=== PATIENT | male | born 1930 | race Caucasian/White ===

== ENCOUNTER 2018-03-30 09:39 | Inpatient (IN) | payer MEDICARE ==
[2018-03-30 10:03] LABS: Urine Bilirubin Negative (NEGATIVE); Urine Blood Negative /ul (NEGATIVE); Urine Ketone Negative (NEGATIVE); Urine Nitrite Negative (NEGATIVE); Urine Protein Negative (NEGATIVE); Urine Specific Gravity 1.025 SP.GR. (1.005-1.030); Urine Urobilinogen Normal (NORMAL); Urine pH 5.5 pH (5.0-7.0)
--- NOTE | 2018-03-30 10:06 | ERNOTE ---
Medical Problem HPI - Narrative Date of Service: 03/30/18 - General Chief Complaint: General Assessment Time Seen by Provider: 03/30/18 10:04 Source: patient Exam Limitations: no limitations - Immun/Allergies/Home Medications Immunizations: IMMUNIZATION HX Immunizations Up to Date Yes History of Influenza Vaccine No Hx Pneumococcal Vaccination Yes Allergies/Adverse Reactions: Allergies Penicillins Allergy (Severe, Verified 03/30/18 09:50) Anaphylaxis Hives Home Medications: HOME MEDICATIONS Aspirin 325 mg PO DAILY 11/26/14 [Last Taken Unknown] Cholecalciferol (Vitamin D3) [Vitamin D-3] 2,000 units PO DAILY 11/26/14 [Last Taken Unknown] Cilostazol [Pletal] 100 mg PO BID 11/26/14 [Last Taken Unknown] Insulin Aspart [Novolog] 10 units SC QAM 11/26/14 [Last Taken Unknown] Insulin Aspart [Novolog] 35 units SC ACX1 11/26/14 [Last Taken Unknown] Insulin Glargine,Hum.rec.anlog [Lantus] 60 units SC HS 11/26/14 [Last Taken Unknown] Rosuvastatin Calcium [Crestor] 20 mg PO DAILY 11/26/14 [Last Taken Unknown] Tamsulosin HCl [Flomax] 0.8 mg PO DAILY 11/26/14 [Last Taken Unknown] Zolpidem Tartrate 10 mg PO DAILY 11/26/14 [Last Taken Unknown] Clopidogrel Bisulfate [Plavix] 75 mg PO DAILY 03/30/18 [Last Taken Unknown] Furosemide 20 mg PO DAILY 03/30/18 [Last Taken Unknown] Metoprolol Rivas/Hydrochlorothiaz [Metoprolol ER-Hctz 25-12.5 mg] 1 each PO DAILY 03/30/18 [Last Taken Unknown] - Pain Score Pain Score #1 Pain Score: 6 - History of Present History Narrative: The patient is a 88 year old male who presents for difficulty with bowel movement and urination which has been present for 1 week. There are associated symptoms of scrotal swelling and chills. The patient reports generalized body aches and scrotal pain, 6/10. There are no alleviating factors. There are aggravating factors of activity and palpation. Previous treatments have included: none. The past medical history includes: diabetes, heart valve replacement and hypertension. The social history is negative. The patient has had no ill contacts. Patient states symptoms began with frequent ep isodes of diarrhea on which persisted for 3 days. Patient states he has now been unable to have BM with increased rectal pressure for 4 days. Patient states along the same time or recently following diarrheal stools he began to notice scrotal redness with pain. Patient typically uses cane for ambulation and lives at home with spouse. Patient having increased difficulty with ambulation and transfers due to weakness and unsteady gait. Timing: getting worse Review of Systems - Review of Systems Constitutional: Present: chills, fatigue. Absent: fever EYE: Present: no symptoms reported ENT: Present: nasal drainage. Absent: ear pain, sore throat Respiratory: Absent: shortness of breath, cough Cardiology: Absent: chest pain Gastrointestinal/Abdominal: Present: diarrhea, constipation, abdominal pain. Absent: nausea, vomiting, eating less, drinking less Genitourinary: Present: dysuria. Absent: frequency Musculoskeletal: Present: back pain Skin: Present: no symptoms reported. Absent: rash Neurological: Present: no symptoms reported Endocrine: Present: no symptoms reported Hematologic/Lymphatic: Present: no symptoms reported Psych: Present: no symptoms reported All Other Systems: All systems neg except as marked Medical History (Last Updated 03/30/18 @ 11:59 by Arlin Rodriguez RN) Bleeding hemorrhoid CHF (congestive heart failure) Diabetes High cholesterol Surgical History: Surgical History (Last Updated 03/30/18 @ 11:59 by Arlin Rodriguez RN) History of heart valve replacement Previous back surgery Total knee replacement status Social History: Preferred Language Estonian Do you have any taoism or No cultural preference? Smoking Status Current every day smoker Have you smoked in the past 12 Yes months Do you dip or chew tobacco No Abuse History No History of abuse Psych History No pertinent hx Alcohol Use none Drug Use none No Social History Section defined Physical Exam - Physical Exam General Appearance: Present: wd/wn, alert, mild distress, anxious Head Exam: Present: normal inspection Eye Exam: Normal inspection: bilateral Ears, Nose, Throat: Present: normal ENT inspection, normal pharynx Neck: Present: normal inspection Respiratory: Present: no respiratory distress, lungs clear, decreased breath sounds Cardiovascular/Chest: Present: regular rate, rhythm, no murmur Gastrointestinal/Abdominal: Present: normal bowel sounds, soft, no organomegaly, tenderness - LLQ, suprapubic, distended - abdominal obesity, hernia - umbilical without tenderness and reduces easily Male Genitals Exam: Present: erythema, scrotum tenderness (R), scrotum tenderness (L). Absent: inguinal tenderness, urethral discharge Extremity Exam: Present: other - left lower extremity erythema with warmth to mid calf, left plantar ulceration over 1st MP Neurological Exam: Present: alert, oriented, normal mood/affect Skin Exam: Present: normal color, warm/dry ED Progress - Date and Time Seen: Date and Time: Patient needing 2 assist with bed to wheelchair transfers. 03/30/18 11:57 Spoke with and patient will be admitted for scrotal and LLE cellulitis, diabetic foot ulcer, and constipation. Spoke with regarding inpatient consult. - Results and Orders Patient's Lab Results:: I have reviewed the patient's lab results. - Vital Signs Patient's Vital Signs:: I have reviewed the patient's vital signs. Vital Signs: Vital Signs 03/30/18 09:46 Temperature 36.6 C Pulse Rate 90 Respiratory Rate 15 Blood Pressure 137/47 - X-Ray X-Ray #1 X-Ray: foot Interpretation: Reviewed by me X-ray Comments: X-RAY REPORT [id number] RAD/Foot 3 Views LT *~ Exam Date: 03/30/2018 10:40 Ordering Physician: Ana Rosa Barrios History: Ulceration. Erythema to left lower extremity. Sore and ulceration on the first digit first metatarsal area. Technique: 3 views of the left foot obtained. Comparison: None. Findings: There is a 3.5 mm metallic foreign body within the soft tissues plantar to the heel. There is spurring of the calcaneus. There is some soft tissue swelling about the first metatarsophalangeal joint. On the lateral view there are radiopaque foreign bodies superficially located. No bony erosions identified. No fractures identified. There are mild arthritic changes. IMPRESSION: MILD ARTHRITIC CHANGES WITH NO ACUTE OSSEOUS PATHOLOGY IDENTIFIED. RADIOPAQUE FOREIGN BODIES. Electronically signed by Urban Rhodes M.D.. X-Ray #2 X-Ray: abdomen Interpretation: Reviewed by me X-ray Comments: X-RAY REPORT [id number] RAD/Abdomen Flat W/ Upright *~ Exam Date: 03/30/2018 10:14 Ordering Physician: Ana Rosa Denis History: Abdominal pain. Technique: Supine and upright views of the abdomen obtained. A total of 5 images utilized. Comparison: None. Findings: There is mild retained stool. There are no air-filled dilated loops of bowel suggest obstruction. There are postoperative changes lumbar spine. There are degenerative changes lumbar spine and both hips. There is consolidation in the left lung base incompletely evaluated. There appears to be a valvular stent. IMPRESSION: MILD RETAINED STOOL. LEFT BASILAR CONSOLIDATION INCOMPLETELY EVALUATED ON THIS EXAM. FOLLOW-UP WITH CHEST PA AND LATERAL CLINICALLY INDICATED. Electronically signed by Urban Rhodes M.D.. - Progress/Reassessment Chief Complaint: General Assessment Departure Clinical Impression: Cellulitis, scrotum Cellulitis Qualifiers: Site of cellulitis: extremity Site of cellulitis of extremity: lower extremity Laterality: left Qualified Code(s): L03.116 - Cellulitis of left lower limb Diabetic foot ulcer Qualifiers: Diabetic foot ulcer location: toe Diabetes mellitus type: type 2 Laterality: left Non-pressure ulcer stage: unspecified non-pressure ulcer stage Qualified Code(s): E11.621 - Type 2 diabetes mellitus with foot ulcer - Departure Disposition: Still a patient Condition: Stable
[2018-03-30 10:10] LABS: Urine Appearance Clear (CLEAR); Urine Bacteria TRACE; Urine Color Yellow; Urine RBC TRACE /hpf (0-5); Urine WBC 0-5 /hpf (0-5)
[2018-03-30 10:35] LABS: Hematocrit 40.1 % (42.0-52.0); Hemoglobin 13.6 gm/dL (13.5-18.0); Mean Cell Volume 91.6 fl (78-100); Mean Corpuscular Hemoglobin 31.1 pg (27-31); Mean Corpuscular Hgb Conc 33.9 g/dl (32-36); Mean Platelet Volume 9.1 fl (8-11.3); Neutrophil # 14.8 K/mm3 (1.3-6.0); Neutrophil % 82.1 % (42-75.0); Platelet Count 212 K/mm3 (150-450); Red Blood Count 4.38 M/mm3 (4.7-6.0); Red Cell Distribution Width 13.2 % (11.5-14.0); White Blood Count 18.1 K/mm3 (4.0-10.5)
[2018-03-30 10:46] LABS: ALT 23 U/L (19-67); AST 18 U/L (0-48); Albumin * 3.7 gm/dl (3.4-5.0); Alkaline Phosphatase * 95 U/L (50-170); Amylase * 23 U/L (25-115); Anion Gap 14.6 mmol/L (6.8-13.8); BUN/Creatinine Ratio 16.2 (9.0-21.6); Bilirubin, Total 0.8 mg/dL (0.0-1.1); Blood Urea Nitrogen 37 mg/dL (6-23); Calcium * 9.1 mg/dL (7.9-10.9); Carbon Dioxide 26.3 mmol/L (24-32.6); Chloride 94 mmol/L (97-106); Glucose * 267 mg/dL (70-110); Lipase 75 U/L (73-393); Potassium 3.9 mmol/L (3.4-4.6); Sodium 131 mmol/L (132-142); Total Protein 7.7 gm/dL (6.2-8.2)
[2018-03-30] MEDS ORDERED: NORMAL SALINE 500 ML IV ONE (11:33)
[2018-03-30] MEDS ORDERED: VANCOMYCIN HCL 1 GM in DEXTROSE 5 % IN WATER 250 ML IV ONE ×2 (11:55)
[2018-03-30] MEDS ORDERED: VANCOMYCIN HCL 1.25 GM in DEXTROSE 5 % IN WATER 250 ML IV ONE ×2 (12:15)
--- NOTE | 2018-03-30 14:44 | CONS ---
[facility] - General Date of Service: 03/30/18 Narrative: Patient evaluated at bedside resting. Presented to the ED this morning with c/o difficult bowel movements and scrotal pain. Upon exam, he was also found to have an ulceration to his left foot with cellulitis extending up to the mid-calf region. He is diabetic and relates complete numbness to his feet. States that the ulceration has been present for approximately 3 months or so. He has not sought any formal medical care for the ulceration. His states that she has been treating at home with neosporin ointment. She has kept the area clean with soap and water. Xrays were completed in the ED, negative for concerns for osteomyelitis. I was consulted for further evaluation and treatment. Source: patient, family - - History of Present Illness Allergies/Adverse Reactions: Allergies Penicillins Allergy (Severe, Verified 03/30/18 13:42) Anaphylaxis Hives Home Medications: Home Medications Medication Instructions Recorded Last Taken Aspirin 81 mg PO DAILY 11/26/14 03/30/18 Cholecalciferol (Vitamin D3) 2,000 units PO DAILY 11/26/14 03/30/18 [Vitamin D-3] Cilostazol [Pletal] 100 mg PO BID 11/26/14 03/30/18 Insulin Aspart [Novolog] 10 units SC [facility] 11/26/14 03/30/18 Insulin Aspart [Novolog] 60 units SC 11/26/14 03/29/18 Insulin Glargine,Hum.rec.anlog 60 units SC 11/26/14 03/29/18 [Lantus] Rosuvastatin Calcium [Crestor] 20 mg PO 11/26/14 03/29/18 Tamsulosin HCl [Flomax] 0.4 mg PO 11/26/14 03/29/18 Zolpidem Tartrate 10 mg PO HS 11/26/14 03/29/18 Clopidogrel Bisulfate [Plavix] 75 mg PO DAILY 03/30/18 03/30/18 Furosemide 20 mg PO DAILY 03/30/18 03/30/18 Metoprolol Rivas/Hydrochlorothiaz 25 mg PO DAILY 03/30/18 03/30/18 [Metoprolol ER-Hctz 25-12.5 mg] Procedures Closed [transurethral] biopsy of bladder (12/10/14) Other cystoscopy (11/26/14) Retrograde pyelogram (12/10/14) Review of Systems - Review of Systems Generalized/Overall Review: Present: Chills. Absent: Fever Abdominal: Present: Constipation. Absent: Nausea, Vomiting Neurological: Present: Numbness Skin: Present: Other - left foot ulcer Physical Examination - Exam Vital Signs: Vital Signs - Last Taken Temp 36.7 C 03/30/18 13:21 Pulse 98 03/30/18 13:21 Resp 20 03/30/18 13:21 BP 148/71 03/30/18 13:21 Pulse Ox 95 03/30/18 13:21 O2 Oxygen Delivery Method Room Air Constitutional: Present: Alert, Oriented x3, Cooperative Cardiovascular/Chest: Present: edema Peripheral Pulses: dorsalis-pedis (R): 0 - Very weak to palpation, PT nonpalpable, dorsalis-pedis (L): 0 - Very weak to palpation, PT nonpalpable Extremity: Present: lower extremity edema Skin Exam: Present: other - Ulceration left foot sub 1st metatarsal head measuring 1 x 0.7 x 2.2 cm. No tunneling or undermining. Loss of tissue to full thickness with exposure of subcutaneous fat layer. Base with yellow, fibrotic/necrotic tissue, minimal granulation tissue intermixed. Surrounding tissue callused with erythema extending from the ulceration throughout the foot to the mid-calf region, warm to touch. Minimal serousanguinous drainage, mild odor present. No exposed tendon or bone at this time. Neurologic: Present: sensory deficit Appearance: Present: appropriate appearance Eye contact: Present: cooperative - Results and Findings: Lab/Microbiology results last 24 hrs: Abnormal/Pending Laboratory Last 24 HRS 03/30/18 03/30/18 03/30/18 10:27 10:27 10:27 WBC 18.1 H RBC 4.38 L Hct 40.1 L MCH 31.1 H Immature Gran % (Auto) 0.70 H Immature Gran # (Auto) 0.13 H Neutrophils % 82.1 H Lymphocytes % 8.8 L Neutrophils # 14.8 H Monocytes # 1.3 H Sodium 131 L Chloride 94 L Anion Gap 14.6 H BUN 37 H Creatinine 2.28 H Est GFR (Non-Af Amer) 29 L D Random Glucose 267 H B-Natriuretic Peptide 814 H Amylase 23 L Urine Glucose (UA) 03/30/18 09:41 WBC RBC Hct MCH Immature Gran % (Auto) Immature Gran # (Auto) Neutrophils % Lymphocytes % Neutrophils # Monocytes # Sodium Chloride Anion Gap BUN Creatinine Est GFR (Non-Af Amer) Random Glucose B-Natriuretic Peptide Amylase Urine Glucose (UA) 100 H - Assessments/Findings (1) Cellulitis Diagnosis(s): Will continue current IV ABX. Swab culture obtained from ulceration left foot. ABX to be adjusted pending culture results. Problem: Acute Qualifiers: Site of cellulitis: extremity Site of cellulitis of extremity: lower extremity Laterality: left Qualified Code(s): L03.116 - Cellulitis of left lower limb (2) Diabetic foot ulcer Diagnosis(s): Verbal consent obtained from patient for bedside debridement of ulceration left foot. Ulceration debrided to subcutaneous tissue with #15 blade, excising all hyperkeratotic tissue down to healthy, bleeding subcutaneous wound margins. Surface also debrided with #15 blade excising all devitalized tissue from the surface of the ulceration revealing a healthy, bleeding subcutaneous wound bed. Hemostasis with compression. Pt tolerated well. Swab culture obtained post- debridement. Ulceration dressed with Aquacel Ag, dry gauze, ramon, and ROX ba ndage. Orders placed for daily dressing changes. Will continue to follow. Problem: Acute Qualifiers: Diabetic foot ulcer location: toe Diabetes mellitus type: type 2 Laterality: left Non-pressure ulcer stage: unspecified non-pressure ulcer stage Qualified Code(s): E11.621 - Type 2 diabetes mellitus with foot ulcer; L97.529 - Non-pressure chronic ulcer of other part of left foot with unspecified severity
[2018-03-30] MEDS ORDERED: ACETAMINOPHEN 500 MG TABLET PO PRN (19:20)
--- NOTE | 2018-03-30 20:00 | HP ---
Chief Complaint - Chief Complaint Date of Service: 03/30/18 Time of Service: 19:32 Chief Complaint: I'm constipated for 3 days, I've got and ulcer on my left great toe. History of Present Illness: 88 y/o male with PMHx of DM2, Diabetic neuropathy, HTN, Hyperlipidemia, PVD, Aortic valve replacement was brought to the ER by his due to fever, erythema of his lower extremities and scrotum for the past week. Px reports that everything started with abdominal pain and profuse nonbloody watery diarrhea that lasted a day, followed by constipation and oliguria of three days duration. Px also reports worsening pain and tenderness of his scrotum sac that started several days after the diarrhea onset. Patient has known diabetic neuropathy and poorly controlled DM2, and admits that it's been a while since he's had a PCP. Due to the loss of sensation in his foot, he did not notice that he developed an ulcer on the base of his left great toe and eventual erythema extending to his calves. Medical History (Last Updated 03/30/18 @ 19:44 by Skylar Traylor MD) Bleeding hemorrhoid CAD (coronary artery disease) CHF (congestive heart failure) Diabetes Diabetic neuropathy HTN (hypertension) High cholesterol PVD (peripheral vascular disease) Surgical History: Surgical History (Last Updated 03/30/18 @ 19:42 by Skylar Traylor MD) 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 Previous back surgery Total knee replacement status Social History: Patient Lives/Resources With Spouse Utilized Occupation retired Preferred Language [place] Do you have any yazidism or No cultural preference? Smoking Status Former smoker Have you smoked in the past 12 Yes months Do you dip or chew tobacco No Abuse History No History of abuse Psych History No pertinent hx Alcohol Use none Drug Use none No Social History Section defined Peds Patient Hx - Developmental: No Pertinent Hx Peds Patient Hx - Medical: No Pertinent Hx Peds Patient Hx - Cardiac/Respiratory: No Pertinent Hx Peds Patient Hx - Surgical: No Surgical History Patient History - Cancer: No Hx of Cancer Review Of Systems (GEN) - Review of Systems Generalized/Overall Review: Present: Weakness, Chills, Fever EENTM: Present: No Symptoms Reported Respiratory: Present: No Symptoms Reported Cardiac: Present: No Symptoms Reported Abdominal: Present: Abdominal Pain, Constipation, Diarrhea Genitourinary: Present: Other - scrotal pain, tenderness, redness Musculoskeletal: Present: Back Pain Neurological: Present: Pre-existing Deficit, Other - Diabetic neuropathy Skin: Present: No Symptoms Reported Endocrine: Present: Intolerance to Cold Misc: All systems neg except as marked Immunizations: IMMUNIZATION HX Immunizations Up to Date Yes History of Influenza Vaccine No Hx Pneumococcal Vaccination Yes Allergies/Adverse Reactions: Allergies Allergy/AdvReac Type Severity Reaction Status Date / Time Penicillins Allergy Severe Anaphylaxis Verified 03/30/18 13:42 Home Medications: HOME MEDICATIONS Aspirin 81 mg PO DAILY 11/26/14 [Last Taken 03/30/18] Cholecalciferol (Vitamin D3) [Vitamin D-3] 2,000 units PO DAILY 11/26/14 [Last Taken 03/30/18] Cilostazol [Pletal] 100 mg PO BID 11/26/14 [Last Taken 03/30/18] Insulin Aspart [Novolog] 10 units SC [facility] 11/26/14 [Last Taken 03/30/18] Insulin Aspart [Novolog] 60 units SC 11/26/14 [Last Taken 03/29/18] Insulin Glargine,Hum.rec.anlog [Lantus] 60 units SC 11/26/14 [Last Taken 03/29/18] Rosuvastatin Calcium [Crestor] 20 mg PO HS 11/26/14 [Last Taken 03/29/18] Tamsulosin HCl [Flomax] 0.4 mg PO HS 11/26/14 [Last Taken 03/29/18] Zolpidem Tartrate 10 mg PO 11/26/14 [Last Taken 03/29/18] Clopidogrel Bisulfate [Plavix] 75 mg PO DAILY 03/30/18 [Last Taken 03/30/18] Furosemide 20 mg PO DAILY 03/30/18 [Last Taken 03/30/18] Metoprolol Rivas/Hydrochlorothiaz [Metoprolol ER-Hctz 25-12.5 mg] 25 mg PO DAILY 03/30/18 [Last Taken 03/30/18] Exam - Exam Vital Signs: Vital Signs - Last Taken Temp 36.7 C 03/30/18 13:21 Pulse 98 03/30/18 13:21 Resp 20 03/30/18 13:21 BP 148/71 03/30/18 13:21 Pulse Ox 95 03/30/18 13:21 Constitutional: Present: Alert, Oriented x3, Cooperative, Well developed, Well nourished, No distress, Elderly ENT Exam: Present: normal ENT inspection, pharynx normal, TMs normal, hard of hearing Eye Exam: bilateral eye: normal inspection, PERRL, EOMI Neck: Present: non-tender, full range of motion, supple, normal inspection, trachea midline Back Exam: Present: normal inspection, no CVA tenderness, decreased range of motion Breasts: Present: Exam deferred Respiratory: Present: chest non-tender, lungs clear, normal breath sounds, no respiratory distress, no accessory muscle use Cardiovascular/Chest: Present: normal peripheral pulses, regular rate, rhythm, no chest tenderness, no edema, no gallop, no JVD, no murmur Peripheral Pulses: femoral (R): 2+, femoral (L): 2+, dorsalis-pedis (R): 1+, dorsalis-pedis (L): 1+, radial (R): 3+, radial (L): 3+ Abdomen: Present: nontender, nondistended, no rebound tenderness, no hepatospenomegaly, no masses, obese, hypoactive /Rectal: Present: Other - Erethematous, tender, and inflamed scrotum Extremity: Present: normal range of motion, non-tender, no pedal edema, other - 2cm circumstrict ulcer at base of left metatarsal of 1st digit, with surrounding erythma and mild supuration. Erethema extending from plantar surface of both feet to midcalve regions. Small superficial venous ulcer on posterior left lower extremity. Skin Exam: Present: warm/dry Lymphatic: Present: no adenopathy Neurologic: Present: compensation/benefits specialist II-XII nml as tested Appearance: Present: appropriate appearance, appropriate insight, neat, no memory impairment Eye contact: Present: cooperative, good eye contact, normal speech Thoughts: Present: normal thought pattern, no apparent hallucination Diagnostic Studies: Abnormal Lab Results 03/30/18 03/30/18 03/30/18 Range/Units 09:41 10:27 10:27 WBC 18.1 H (4.0-10.5) K/mm3 RBC 4.38 L (4.7-6.0) M/mm3 Hct 40.1 L (42.0-52.0) % MCH 31.1 H (27-31) pg Immature Gran % (Auto) 0.70 H (0.001-0.429) % Immature Gran # (Auto) 0.13 H (0.000-0.0310) K/mm3 Neutrophils % 82.1 H (42-75.0) % Lymphocytes % 8.8 L (20-51) % Neutrophils # 14.8 H (1.3-6.0) K/mm3 Monocytes # 1.3 H (0.0-1.0) k/mm3 Sodium 131 L (132-142) mmol/L Chloride 94 L (97-106) mmol/L Anion Gap 14.6 H (6.8-13.8) mmol/L BUN 37 H (6-23) mg/dL Creatinine 2.28 H (0.4-1.4) mg/dL Est GFR (Non-Af Amer) 29 L D (60-130) mL/min Random Glucose 267 H (70-110) mg/dL B-Natriuretic Peptide (5-650) pg/mL Amylase 23 L (25-115) U/L Urine Glucose (UA) 100 H (NEGATIVE) mg/dL 03/30/18 Range/Units 10:27 WBC (4.0-10.5) K/mm3 RBC (4.7-6.0) M/mm3 Hct (42.0-52.0) % MCH (27-31) pg Immature Gran % (Auto) (0.001-0.429) % Immature Gran # (Auto) (0.000-0.0310) K/mm3 Neutrophils % (42-75.0) % Lymphocytes % (20-51) % Neutrophils # (1.3-6.0) K/mm3 Monocytes # (0.0-1.0) k/mm3 Sodium (132-142) mmol/L Chloride (97-106) mmol/L Anion Gap (6.8-13.8) mmol/L BUN (6-23) mg/dL Creatinine (0.4-1.4) mg/dL Est GFR (Non-Af Amer) (60-130) mL/min Random Glucose (70-110) mg/dL B-Natriuretic Peptide 814 H (5-650) pg/mL Amylase (25-115) U/L Urine Glucose (UA) (NEGATIVE) mg/dL Laboratory Results WBC 18.1 K/mm3 (4.0-10.5) H 03/30/18 10: RBC 4.38 M/mm3 (4.7-6.0) L 03/30/18 10:27 Hgb 13.6 gm/dL (13.5-18.0) 03/30/18 10:27 Hct 40.1 % (42.0-52.0) L 03/30/18 10:27 MCV 91.6 fl (78-100) 03/30/18 10:27 MCH 31.1 pg (27-31) H 03/30/18 10: MCHC 33.9 g/dl (32-36) 03/30/18 10: RDW 13.2 % (11.5-14.0) 03/30/18 10: Plt Count 212 K/mm3 (150-450) 03/30/18 10: MPV 9.1 fl (8-11.3) 03/30/18 10:27 Immature Gran % (Auto) 0.70 % (0.001-0.429) H 03/30/18 10:27 Immature Gran # (Auto) 0.13 K/mm3 (0.000-0.0310) H 03/30/18 10: Neutrophils % 82.1 % (42-75.0) H 03/30/18 10:27 Lymphocytes % 8.8 % (20-51) L 03/30/18 10: Monocytes % 7.2 % (0.0-9) 03/30/18 10: Eosinophils % 0.9 % (0.0-3.0) 03/30/18 10:27 Basophils % 0.3 % (0.0-1.0) 03/30/18 10: Nucleated RBC % 0.0 k/mm3 (0-1) 03/30/18 10: Neutrophils # 14.8 K/mm3 (1.3-6.0) H 03/30/18 10:27 Lymphocytes # 1.58 k/mm3 (1.5-3.5) 03/30/18 10:27 Monocytes # 1.3 k/mm3 (0.0-1.0) H 03/30/18 10:27 Eosinophils # 0.2 k/mm3 (0.0-0.7) 03/30/18 10:27 Absolute Basophils 0.1 k/mm3 (0.0-0.1) 03/30/18 10:27 Sodium 131 mmol/L (132-142) L 03/30/18 10:27 Plasma Sodium 134 mmol/L (130-142) 03/30/18 10:27 Potassium 3.9 mmol/L (3.4-4.6) 03/30/18 10:27 Chloride 94 mmol/L (97-106) L 03/30/18 10:27 Carbon Dioxide 26.3 mmol/L (24-32.6) 03/30/18 10:27 Anion Gap 14.6 mmol/L (6.8-13.8) H 03/30/18 10:27 BUN 37 mg/dL (6-23) H 03/30/18 10:27 Creatinine 2.28 mg/dL (0.4-1.4) H 03/30/18 10:27 Est GFR (Non-Af Amer) 29 mL/min (60-130) L D 03/30/18 10:27 BUN/Creatinine Ratio 16.2 (9.0-21.6) 03/30/18 10:27 Random Glucose 267 mg/dL (70-110) H 03/30/18 10:27 Calcium 9.1 mg/dL (7.9-10.9) 03/30/18 10:27 Calcium Adj for Albumin 9.0 mg/dL (8.4-10.2) 03/30/18 10: Total Bilirubin 0.8 mg/dL (0.0-1.1) 03/30/18 10: AST 18 U/L (0-48) 03/30/18 10: ALT 23 U/L (19-67) 03/30/18 10:27 Alkaline Phosphatase 95 U/L (50-170) 03/30/18 10:27 C-Reactive Prot, Quant Less than 0.2 mg/dL (0.0-0.9) 03/30/18 10: B-Natriuretic Peptide 814 pg/mL (5-650) H 03/30/18 10: Total Protein 7.7 gm/dL (6.2-8.2) 03/30/18 10:27 Albumin 3.7 gm/dl (3.4-5.0) 03/30/18 10:27 Amylase 23 U/L (25-115) L 03/30/18 10:27 Lipase 75 U/L (73-393) 03/30/18 10:27 Urine Color Yellow 03/30/18 09:41 Urine Appearance Clear (CLEAR) 03/30/18 09:41 Urine pH 5.5 pH (5.0-7.0) 03/30/18 09:41 Ur Specific [place] 1.025 SP.GR. (1.005-1.030) 03/30/18 09:41 Urine Protein Negative mg/dL (NEGATIVE) 03/30/18 09:41 Urine Glucose (UA) 100 mg/dL (NEGATIVE) H 03/30/18 09:41 Urine Ketones Negative mg/dL (NEGATIVE) 03/30/18 09:41 Urine Blood Negative /ul (NEGATIVE) 03/30/18 09:41 Urine Nitrate Negative (NEGATIVE) 03/30/18 09:41 Urine Bilirubin Negative mg/dl (NEGATIVE) 03/30/18 09:41 Urine Urobilinogen Normal EU/dl (NORMAL) 03/30/18 09:41 Ur Leukocyte Esterase Negative /ul (NEGATIVE) 03/30/18 09:41 Urine RBC Trace /hpf (0-5) 03/30/18 09:41 Urine WBC 0-5 /hpf (0-5) 03/30/18 09:41 Ur Epithelial Cells 0-5 /hpf (0-5) 03/30/18 09:41 Urine Bacteria Trace (NONE) 03/30/18 09:41 Urine Culture Comments No culture indicated 03/30/18 09:41 Assessment/Plan - Narrative Narrative: px was admitted to inpatient [facility] for treatment with IV antibx, IV hydration, Surgical debridement of diabetic foot ulcer, culture guided therapy, and laxatives for constipation. We will monitor him closely. - Assessment/Plan (1) Cellulitis of left lower extremity Problem: Acute (2) Diabetic foot ulcer associated with type 2 diabetes mellitus Problem: Acute (3) Diabetic foot Problem: Acute (4) Constipation Problem: Acute (5) Cellulitis of scrotum Problem: Acute (6) Uncontrolled diabetes mellitus Problem: Acute
[2018-03-30] MEDS ORDERED: ENOXAPARIN SODIUM 30 MG/0.3 ML SYRG SC SCH (21:00)
[2018-03-30] MEDS ORDERED: INSULIN ASPART 100 UNITS/ML VIAL SC SCH (23:00)
[2018-03-30] MEDS ORDERED: ROSUVASTATIN CALCIUM 10 MG TABLET ONE (23:08)
[2018-03-30] MEDS: ZOLPIDEM TARTRATE 10 MG TABLET PO SCH (23:20)
[2018-03-30] MEDS: CLOPIDOGREL BISULFATE 75 MG TABLET PO SCH (23:31)
[2018-03-30] MEDS: DOCUSATE SODIUM 100 MG CAPSULE PO SCH (23:31)
[2018-03-30] MEDS: TAMSULOSIN HCL 0.4 MG CAP.SR.24H PO SCH (23:32)
[2018-03-30] MEDS: ROSUVASTATIN CALCIUM 20 MG TABLET PO SCH (23:32)
[2018-03-30] MEDS: INSULIN GLARGINE,HUM.REC.ANLOG 100 UNITS/ML VIAL SC SCH (23:32)
[2018-03-30] MEDS: metroNIDAZOLE/SODIUM CHLORIDE 500 MG/100 ML BAG IV SCH (23:32)
[2018-03-30] MEDS: FAMOTIDINE 20 MG in DEXTROSE 5 % IN WATER 100 ML IV SCH ×2 (23:32)
[2018-03-30] MEDS: CILOSTAZOL 100 MG TABLET PO SCH (23:33)
[2018-03-30] MEDS: INSULIN LISPRO 100 UNITS/ML VIAL SC SCH (23:33)
[2018-03-31] MEDS: metroNIDAZOLE/SODIUM CHLORIDE 500 MG/100 ML BAG IV SCH ×4 (05:15→21:01)
[2018-03-31 06:20] LABS: Hemoglobin 12.9 gm/dL (13.5-18.0); Mean Cell Volume 89.8 fl (78-100); Mean Corpuscular Hemoglobin 30.5 pg (27-31); Mean Corpuscular Hgb Conc 33.9 g/dl (32-36); Mean Platelet Volume 9.4 fl (8-11.3); Platelet Count 220 K/mm3 (150-450); Red Blood Count 4.23 M/mm3 (4.7-6.0); Red Cell Distribution Width 13.2 % (11.5-14.0)
[2018-03-31 06:33] LABS: Total Cells Counted 100
[2018-03-31 06:39] LABS: Albumin * 3.2 gm/dl (3.4-5.0); Anion Gap 15.3 mmol/L (6.8-13.8); BUN/Creatinine Ratio 17.6 (9.0-21.6); Bilirubin, Total 0.6 mg/dL (0.0-1.1); Ca. Corrected For Albumin 9.1 mg/dL (8.4-10.2); Calcium * 8.8 mg/dL (7.9-10.9); Carbon Dioxide 24.8 mmol/L (24-32.6); Potassium 4.1 mmol/L (3.4-4.6); Total Protein 7.2 gm/dL (6.2-8.2)
[2018-03-31 07:21] LABS: Lymphocyte 4 % (20-51); Monocyte 7 % (0-9); Neutrophil 89 % (42-75); Platelet Estimate Normal (NORMAL); RBC Morphology Normal (NORMAL)
[2018-03-31] MEDS: INSULIN LISPRO 100 UNITS/ML VIAL SC SCH ×7 (07:38→21:01)
[2018-03-31] MEDS: ASPIRIN 81 MG TABLET.DR PO SCH (08:21)
[2018-03-31] MEDS: DOCUSATE SODIUM 100 MG CAPSULE PO SCH ×2 (08:21→21:00)
[2018-03-31] MEDS: FUROSEMIDE 20 MG TABLET PO SCH (08:22)
[2018-03-31] MEDS: CILOSTAZOL 100 MG TABLET PO SCH ×3 (08:22→21:02)
[2018-03-31] MEDS: CHOLECALCIFEROL 1,000 UNIT CAPSULE PO SCH (08:22)
[2018-03-31] MEDS: HYDROCHLOROTHIAZIDE 12.5 MG CAPSULE PO SCH (08:22)
[2018-03-31] MEDS: CLOPIDOGREL BISULFATE 75 MG TABLET PO SCH (08:23)
[2018-03-31] MEDS: METOPROLOL SUCCINATE 25 MG TABLET.SA PO SCH (08:23)
[2018-03-31] MEDS: FAMOTIDINE 20 MG in DEXTROSE 5 % IN WATER 100 ML IV SCH ×4 (08:27→21:02)
[2018-03-31] MEDS: POLYETHYLENE GLYCOL 3350 119 GM BTL PO SCH (08:38)
[2018-03-31] MEDS: VANCOMYCIN HCL 1.25 GM in DEXTROSE 5 % IN WATER 250 ML IV SCH ×2 (14:14)
--- NOTE | 2018-03-31 16:17 | PN ---
Subjective - Date and Time Seen Date: 03/31/18 Time: 16:15 Subjective Narrative: I got stomach discomfort. Objective Objective Narrative: 88 y/o male admitted for Diabetic foot ulcer, cristin. LLExt, cellulitis, Scrotal cellulitis, and constipation was evaluated at bedside and was found to be afebrile and in no acute distress. Px's continues to have erythema on both lower extremities as well as his scrotum, Vanco was readjusted per his GFR by the pharmacist. Culture of his foot ulcer shows growth of an unknown organism, we will optimize IV antibiotics once final report becomes available. Patient was also administered Miralax for his constipation and nursing reported 2 BM this morning. Px still report abdominal discomfort and fullness, so we will continue with the laxatives. - Review of Systems Generalized/Overall Review: Reports: No Symptoms Reported EENTM: Reports: No Symptoms Reported Respiratory: Reports: No Symptoms Reported Cardiac: Reports: No Symptoms Reported Abdominal: Reports: Abdominal Pain, Constipation Genitourinary Symptoms: Reports: Other - erythema and tenderness of scrotal sac. Musculoskeletal Complaints: Reports: Back Pain, Other - Erythema of lower extremities, ulcer of left 1st metatarsal base. Neurological: Reports: Pre-existing Deficit Skin: Reports: Change in Color, Other - erythema of lower extremities Endocrine: Reports: No Symptoms Reported - Vitals Vitals: Last Vital Signs Temp 37.1 C 03/31/18 07:10 Pulse 82 03/31/18 08:23 Resp 16 03/31/18 07:10 BP 132/68 03/31/18 08:23 Pulse Ox 93 03/31/18 07:10 - Abnormal Lab Findings Abnormal Lab Findings: Abnormal Lab Results 03/30/18 03/31/18 03/31/18 Range/Units 19:40 06:00 06:20 WBC 18.0 H (4.0-10.5) K/mm3 RBC 4.23 L (4.7-6.0) M/mm3 Hgb 12.9 L (13.5-18.0) gm/dL Hct 38.0 L (42.0-52.0) % Neutrophils % (Manual) 89 H (42-75) % Lymphocytes % (Manual) 4 L (20-51) % Neutrophils # (Manual) 16.0 H (1.3-6.0) K/mm3 Lymphocytes # (Manual) 0.7 L (1.5-3.5) k/mm3 Monocytes # (Manual) 1.3 H (0.0-1.0) k/mm3 Anion Gap 15.3 H (6.8-13.8) mmol/L BUN 39 H (6-23) mg/dL Creatinine 2.28 H 2.21 H (0.4-1.4) mg/dL Est GFR (Non-Af Amer) 30 L (60-130) mL/min Random Glucose 288 H (70-110) mg/dL Albumin 3.2 L (3.4-5.0) gm/dl - Exam Constitutional: Present: Alert, Oriented x3, Cooperative, Well developed, Well nourished, No distress, Elderly, Morbidly obese ENT Exam: Present: normal ENT inspection, pharynx normal, TMs normal, hard of hearing Neck: Present: non-tender, full range of motion, supple, normal inspection, trachea midline Breasts: Present: Exam deferred Respiratory: Present: chest non-tender, lungs clear Cardiovascular/Chest: Present: normal peripheral pulses, regular rate, rhythm, no chest tenderness, no edema, no gallop, no JVD, no murmur Abdomen: Present: Normal bowel sounds, obese, firm, distended /Rectal: Present: Other - Erythema of scrotal sac. Extremity: Present: normal range of motion, non-tender, no pedal edema, slow capillary refill, other - Bilateral erythema of lower extremities, ulcer on 1st left metatarsal, decreased pedal pulses. Skin Exam: Present: warm/dry Lymphatic: Present: no adenopathy Neurologic: Present: lath hand II-XII nml as tested, sensory deficit Appearance: Present: appropriate appearance, appropriate insight, neat Eye contact: Present: cooperative, good eye contact, normal speech Thoughts: Present: normal thought pattern, other - Px had delirium last night. Assessment/Plan Plan Narrative: We will continue IV antibiotics, IV hydration, and follow up on culture results. Nursing staff report that Px had delirium last night, and became uncooperative and demanded to go home. He was redirected and eventually calmed down. - Problems/Diagnosis (1) Diabetic foot ulcer associated with type 2 diabetes mellitus Problem: Acute (2) Diabetic foot Problem: Acute (3) Constipation Problem: Acute (4) Cellulitis of scrotum Problem: Acute (5) Uncontrolled diabetes mellitus Problem: Acute (6) Cellulitis of both lower extremities Problem: Acute
[2018-03-31] MEDS: ZOLPIDEM TARTRATE 10 MG TABLET PO SCH ×2 (19:47→21:00)
[2018-03-31] MEDS: ROSUVASTATIN CALCIUM 20 MG TABLET PO SCH ×2 (19:48→21:00)
[2018-03-31] MEDS: TAMSULOSIN HCL 0.4 MG CAP.SR.24H PO SCH ×2 (19:48→21:01)
[2018-03-31] MEDS: INSULIN GLARGINE,HUM.REC.ANLOG 100 UNITS/ML VIAL SC SCH ×2 (19:52→21:01)
[2018-03-31] MEDS: NORMAL SALINE 1,000 ML IV PRN (21:50)
[2018-04-01] MEDS: metroNIDAZOLE/SODIUM CHLORIDE 500 MG/100 ML BAG IV SCH ×3 (04:48→21:44)
[2018-04-01 05:26] LABS: Hematocrit 33.3 % (42.0-52.0); Hemoglobin 11.1 gm/dL (13.5-18.0); Mean Cell Volume 89.8 fl (78-100); Mean Corpuscular Hemoglobin 29.9 pg (27-31); Mean Corpuscular Hgb Conc 33.3 g/dl (32-36); Mean Platelet Volume 9.7 fl (8-11.3); Neutrophil # 11.9 K/mm3 (1.3-6.0); Neutrophil % 82.3 % (42-75.0); Platelet Count 216 K/mm3 (150-450); Red Blood Count 3.71 M/mm3 (4.7-6.0); Red Cell Distribution Width 13.1 % (11.5-14.0); White Blood Count 14.5 K/mm3 (4.0-10.5)
[2018-04-01 05:41] LABS: Albumin * 2.7 gm/dl (3.4-5.0); Anion Gap 15.7 mmol/L (6.8-13.8); BUN/Creatinine Ratio 21.1 (9.0-21.6); Bilirubin, Total 0.5 mg/dL (0.0-1.1); Calcium * 8.3 mg/dL (7.9-10.9); Potassium 3.7 mmol/L (3.4-4.6); Total Protein 6.2 gm/dL (6.2-8.2)
[2018-04-01] MEDS: INSULIN LISPRO 100 UNITS/ML VIAL SC SCH ×6 (07:05→21:35)
[2018-04-01] MEDS: NORMAL SALINE 1,000 ML IV PRN ×2 (08:50→20:15)
[2018-04-01] MEDS: POLYETHYLENE GLYCOL 3350 119 GM BTL PO SCH (09:07)
[2018-04-01] MEDS: DOCUSATE SODIUM 100 MG CAPSULE PO SCH ×2 (09:09→21:35)
[2018-04-01] MEDS: METOPROLOL SUCCINATE 25 MG TABLET.SA PO SCH (09:09)
[2018-04-01] MEDS: CILOSTAZOL 100 MG TABLET PO SCH ×2 (09:09→21:35)
[2018-04-01] MEDS: CLOPIDOGREL BISULFATE 75 MG TABLET PO SCH (09:10)
[2018-04-01] MEDS: CHOLECALCIFEROL 1,000 UNIT CAPSULE PO SCH (09:10)
[2018-04-01] MEDS: HYDROCHLOROTHIAZIDE 12.5 MG CAPSULE PO SCH (09:10)
[2018-04-01] MEDS: FUROSEMIDE 20 MG TABLET PO SCH (09:11)
[2018-04-01] MEDS: FAMOTIDINE 20 MG in DEXTROSE 5 % IN WATER 100 ML IV SCH ×4 (09:11→20:17)
[2018-04-01] MEDS: ASPIRIN 81 MG TABLET.DR PO SCH (09:15)
[2018-04-01] MEDS: VANCOMYCIN HCL 1.25 GM in DEXTROSE 5 % IN WATER 250 ML IV SCH ×2 (13:24)
[2018-04-01] MEDS ORDERED: metroNIDAZOLE 500 MG TABLET PO ONE (13:38)
--- NOTE | 2018-04-01 13:58 | PN ---
Subjective - Date and Time Seen Date: 04/01/18 Time: 13:58 Subjective Narrative: Pt evaluated at bedside resting. States that he is feeling much better today. He is ready to go home. Final cultures pending, however prelim cultures growing gram negative organism. Objective - Review of Systems Generalized/Overall Review: Denies: Chills, Fever Respiratory: Denies: Shortness of Breath Cardiac: Reports: Edema Abdominal: Denies: Nausea, Vomiting Neurological: Reports: Numbness Skin: Reports: Other - Ulceration to left foot - Vitals Vitals: Last Vital Signs Temp 37.3 C 04/01/18 10:14 Pulse 78 04/01/18 10:14 Resp 14 04/01/18 10:14 BP 125/63 04/01/18 10:14 Pulse Ox 94 04/01/18 10:14 - Abnormal Lab Findings Abnormal Lab Findings: Abnormal Lab Results 04/01/18 04/01/18 Range/Units 04:55 04:55 WBC 14.5 H (4.0-10.5) K/mm3 RBC 3.71 L (4.7-6.0) M/mm3 Hgb 11.1 L (13.5-18.0) gm/dL Hct 33.3 L (42.0-52.0) % Immature Gran % (Auto) 0.90 H (0.001-0.429) % Immature Gran # (Auto) 0.13 H (0.000-0.0310) K/mm3 Neutrophils % 82.3 H (42-75.0) % Lymphocytes % 5.9 L (20-51) % Neutrophils # 11.9 H (1.3-6.0) K/mm3 Lymphocytes # 0.86 L (1.5-3.5) k/mm3 Monocytes # 1.3 H (0.0-1.0) k/mm3 Sodium 131 L (132-142) mmol/L Carbon Dioxide 22.0 L (24-32.6) mmol/L Anion Gap 15.7 H (6.8-13.8) mmol/L BUN 40 H (6-23) mg/dL Creatinine 1.90 H (0.4-1.4) mg/dL Est GFR (Non-Af Amer) 36 L (60-130) mL/min Random Glucose 161 H D (70-110) mg/dL Albumin 2.7 L (3.4-5.0) gm/dl - Exam Constitutional: Present: Alert, Oriented x3, Cooperative Extremity: Present: lower extremity edema - mild, bilateral Skin Exam: Present: other - Ulceration left foot sub 1st metatarsal head unchanged in size measuring 1 x 0.7 x 2.2 cm. Now tunnels to a new ulceration to the medial 1st metatarsal head found upon de-jose of new blister formation, measures 1 x 1 x 2.2 cm. Loss of tissue to full thickness with exposure of subcutaneous fat layer. Base with yellow, fibrotic/necrotic tissue, minimal granulation tissue intermixed. Surrounding tissue callused with erythema that remains extending from the ulcerations throughout the forefoot - improved from previous visit. Minimal sero-purulent drainage, mild odor present. No exposed tendon or bone at this time. Eye contact: Present: cooperative Assessment/Plan - Problems/Diagnosis (1) Cellulitis Problem: Acute Qualifiers: Qualified Code(s): L03.116 - Cellulitis of left lower limb Narrative: Pt has showed some improvement, now with redness localized to the forefoot only. Will continue on ABX. Plan for d/c today on oral ABX. Can adjust when final culture results available. (2) Diabetic foot ulcer Problem: Acute Qualifiers: Qualified Code(s): E11.621 - Type 2 diabetes mellitus with foot ulcer; L 97.529 - Non-pressure chronic ulcer of other part of left foot with unspecified severity Narrative: Blister to left foot deroofed revealing a second ulceration that communicates with the original. New dressing applied to both ulcerations - Aquacel Ag, dry gauze, ramon, and ROX bandage. Educated on dressing changes at home, to be done daily. Pt to wear surgical shoe to left foot with ambulation. This is fitted and dispensed today. Will plan for patient to f/u in my office this week. I will have my nursing staff call with appointment date/time. Educated o n worsening SOI and he is to seek medical attention immediately should any develop. Advised that infections in diabetics can become very serious in a very short period of time, so do not hesitate if there is any concern. States understanding.
--- NOTE | 2018-04-01 14:33 | DS ---
(1) Diabetic foot ulcer associated with type 2 diabetes mellitus Problem: Acute (2) Diabetic foot Problem: Acute (3) Constipation Problem: Resolved (4) Cellulitis of scrotum Problem: Acute (5) Uncontrolled diabetes mellitus Problem: Resolved Qualifiers: Diabetes mellitus type: type 2 (6) Cellulitis of both lower extremities Problem: Acute Description of Stay: 88 y/o male admitted for Bilateral lower ext. and scrotal cellulitis, constipation, and diabetic foot ulcer was evaluated at bedside and was found to be responding to treatment favorably. Px's erythema and tenderness in lower extremities and scrotal area have markedly improved, WBC is on a downward trend, renal function has improved, and blood glucose is controlled. Px was treated with IV antibiotics, IV hydration, insuline, and laxatives. Wound Cultures reveal growth of an gram negative organism, so patient will continue with IV antibiotics on an outpatient basis at our [facility] and will be prescribed additional days of PO antibiotics. He was also informed that a metallic foreign object near his left heel was found incidentally on Xray, although he denies pain or tenderness in the area but was instructed to never walk bear foot and to follow up with his PCP. Px will also f/u with the wound clinic for his diabetic foot ulcer which was debrided after admission to the hospital. Procedures Performed: none List Procedures: Debridement of left great toe ulcer. Results and Findings: Pending Mircobiology Results 03/30/18 12:00 Blood Blood Culture - Preliminary NO GROWTH AFTER 48 HOURS 03/30/18 10:27 Blood Blood Culture - Preliminary NO GROWTH AFTER 48 HOURS 03/30/18 14:30 Foot - Left Wound Culture - Preliminary Gram Negative Bacilli Lab Pending Results 03/30/18 09:41: Urine Color Yellow, Urine Appearance Clear, Urine pH 5.5, Ur Specific [place] 1.025, Urine Protein Negative, Urine Glucose (UA) 100 H, Urine Ketones Negative, Urine Blood Negative, Urine Nitrate Negative, Urine Bilirubin Negative, Urine Urobilinogen Normal, Ur Leukocyte Esterase Negative, Urine RBC Trace, Urine WBC 0-5, Ur Epithelial Cells 0-5, Urine Bacteria Trace, Urine Culture Comments No culture indicated 03/30/18 10:27: WBC 18.1 H, RBC 4.38 L, Hgb 13.6, Hct 40.1 L, MCV 91.6, MCH 31.1 H, MCHC 33.9, RDW 13.2, Plt Count 212, MPV 9.1, Immature Gran % (Auto) 0.70 H, Immature Gran # (Auto) 0.13 H, Neutrophils % 82.1 H, Lymphocytes % 8.8 L, Monocytes % 7.2, Eosinophils % 0.9, Basophils % 0.3, Nucleated RBC % 0.0, Neutrophils # 14.8 H, Lymphocytes # 1.58, Monocytes # 1.3 H, Eosinophils # 0.2, Absolute Basophils 0.1 03/30/18 10:27: Sodium 131 L, Plasma Sodium 134, Potassium 3.9, Chloride 94 L, Carbon Dioxide 26.3, Anion Gap 14.6 H, BUN 37 H, Creatinine 2.28 H, Est GFR (Non-Af Amer) 29 L D, BUN/Creatinine Ratio 16.2, Random Glucose 267 H, Calcium 9.1, Calcium Adj for Albumin 9.0, Total Bilirubin 0.8, AST 18, ALT 23, Alkaline Phosphatase 95, C-Reactive Prot, Quant Less than 0.2, Total Protein 7.7, Albumin 3.7, Amylase 23 L, Lipase 75 03/30/18 10:27: B-Natriuretic Peptide 814 H 03/30/18 19:40: Creatinine 2.28 H 03/31/18 06:00: WBC 18.0 H, RBC 4.23 L, Hgb 12.9 L, Hct 38.0 L, MCV 89.8, MCH 30.5, MCHC 33.9, RDW 13.2, Plt Count 220, MPV 9.4, Neutrophils % (Manual) 89 H, Lymphocytes % (Manual) 4 L, Monocytes % (Manual) 7, Neutrophils # (Manual) 16.0 H, Lymphocytes # (Manual) 0.7 L, Monocytes # (Manual) 1.3 H, Platelet Estimate Normal, RBC Morphology Normal 03/31/18 06:20: Sodium 133, Plasma Sodium 136, Potassium 4.1, Chloride 97, Carbon Dioxide 24.8, Anion Gap 15.3 H, BUN 39 H, Creatinine 2.21 H, Est GFR (Non-Af Amer) 30 L, BUN/Creatinine Ratio 17.6, Random Glucose 288 H, Calcium 8.8, Calcium Adj for Albumin 9.1, Total Bilirubin 0.6, AST 19, ALT 23, Alkaline Phosphatase 95, Total Protein 7.2, Albumin 3.2 L 04/01/18 04:55: WBC 14.5 H, RBC 3.71 L, Hgb 11.1 L, Hct 33.3 L, MCV 89.8, MCH 29.9, MCHC 33.3, RDW 13.1, Plt Count 216, MPV 9.7, Immature Gran % (Auto) 0.90 H, Immature Gran # (Auto) 0.13 H, Neutrophils % 82.3 H, Lymphocytes % 5.9 L, Monocytes % 8.8, Eosinophils % 1.7, Basophils % 0.4, Nucleated RBC % 0.0, Neutrophils # 11.9 H, Lymphocytes # 0.86 L, Monocytes # 1.3 H, Eosinophils # 0.3, Absolute Basophils 0.1 04/01/18 04:55: Sodium 131 L, Plasma Sodium 132, Potassium 3.7, Chloride 97, Carbon Dioxide 22.0 L, Anion Gap 15.7 H, BUN 40 H, Creatinine 1.90 H, Est GFR (Non-Af Amer) 36 L, BUN/Creatinine Ratio 21.1, Random Glucose 161 H D, Calcium 8.3, Calcium Adj for Albumin 9.0, Total Bilirubin 0.5, AST 25, ALT 26, Alkaline Phosphatase 91, Total Protein 6.2, Albumin 2.7 L Discharge Location: Home Disposition: Home self-care Condition: Good Face to Face Encounter completed per [facility] Guidelines: No Discharge Activity: Activity as tolerated Discharge Diet: Consistent carbs Additional Patient Instructions (free text): -Please make TCM appointment unless [facility] discharge. Thank you! Geri @ [phone]. Prescriptions (Any new or edited meds): Hydrochlorothiazide 12.5 mg PO QDIPM 30 Days #30 tablet metroNIDAZOLE [Flagyl] 500 mg PO Q8H 5 Days #15 tablet Sulfamethoxazole/Trimethoprim [Bactrim] 1 tab PO BID 7 Days #14 tablet Complete Home Medications List: Complete Home Medication List: Aspirin 81 mg PO DAILY 11/26/14 Cholecalciferol (Vitamin D3) [Vitamin D3] 2,000 units PO DAILY 11/26/14 Cilostazol [Pletal] 100 mg PO BID 11/26/14 Insulin Aspart [Novolog] 10 units SC QAM 11/26/14 Insulin Aspart [Novolog] 40 units SC .AT LUNCH 11/26/14 Insulin Glargine,Hum.rec.anlog [Lantus] 60 units SC HS 11/26/14 Rosuvastatin Calcium [Crestor] 20 mg PO HS 11/26/14 Tamsulosin HCl [Flomax] 0.4 mg PO HS 11/26/14 Zolpidem Tartrate 10 mg PO HS 11/26/14 Clopidogrel Bisulfate [Plavix] 75 mg PO DAILY 03/30/18 Furosemide 20 mg PO DAILY 03/30/18 Metoprolol Rivas/Hydrochlorothiaz [Metoprolol ER-Hctz 25-12.5 mg] 25 mg PO DAILY 03/30/18 Docusate Sodium [Colace] 100 mg PO BID capsule 04/01/18 Hydrochlorothiazide 12.5 mg PO QDIPM 30 Days #30 tablet 04/01/18 Sulfamethoxazole/Trimethoprim [Bactrim] 1 tab PO BID 7 Days #14 tablet 04/01/18 Vancomycin HCl [Vancomycin] 1.25 gm IV Q24H vial 04/01/18 metroNIDAZOLE [Flagyl] 500 mg PO Q8H 5 Days #15 tablet 04/01/18
[2018-04-01] MEDS ORDERED: metroNIDAZOLE/SODIUM CHLORIDE 500 MG/100 ML BAG IV SCH (18:00)
[2018-04-01] MEDS ORDERED: LEVOFLOXACIN IN DEXTROSE 5 % 750 MG/150 ML BAG IV SCH (19:00)
[2018-04-01] MEDS ORDERED: NORMAL SALINE 250 ML IV ONE (19:16)
[2018-04-01] MEDS: ZOLPIDEM TARTRATE 10 MG TABLET PO SCH (20:53)
[2018-04-01] MEDS: ROSUVASTATIN CALCIUM 20 MG TABLET PO SCH (21:35)
[2018-04-01] MEDS: TAMSULOSIN HCL 0.4 MG CAP.SR.24H PO SCH (21:35)
[2018-04-01] MEDS: INSULIN GLARGINE,HUM.REC.ANLOG 100 UNITS/ML VIAL SC SCH (21:35)
[2018-04-02] MEDS: NORMAL SALINE 1,000 ML IV PRN (04:37)
[2018-04-02] MEDS: metroNIDAZOLE/SODIUM CHLORIDE 500 MG/100 ML BAG IV SCH (05:05)
[2018-04-02 05:58] LABS: Hematocrit 31.6 % (42.0-52.0); Hemoglobin 10.7 gm/dL (13.5-18.0); Mean Corpuscular Hemoglobin 30.1 pg (27-31); Mean Corpuscular Hgb Conc 33.9 g/dl (32-36); Mean Platelet Volume 9.3 fl (8-11.3); Neutrophil % 77.7 % (42-75.0); Platelet Count 218 K/mm3 (150-450); Red Blood Count 3.55 M/mm3 (4.7-6.0); Red Cell Distribution Width 13.2 % (11.5-14.0); White Blood Count 11.5 K/mm3 (4.0-10.5)
[2018-04-02] MEDS: INSULIN LISPRO 100 UNITS/ML VIAL SC SCH ×4 (07:24→11:29)
[2018-04-02] MEDS: CHOLECALCIFEROL 1,000 UNIT CAPSULE PO SCH (08:47)
[2018-04-02] MEDS: CILOSTAZOL 100 MG TABLET PO SCH (08:47)
[2018-04-02] MEDS: CLOPIDOGREL BISULFATE 75 MG TABLET PO SCH (08:47)
[2018-04-02] MEDS: HYDROCHLOROTHIAZIDE 12.5 MG CAPSULE PO SCH (08:47)
[2018-04-02] MEDS: METOPROLOL SUCCINATE 25 MG TABLET.SA PO SCH (08:47)
[2018-04-02] MEDS: DOCUSATE SODIUM 100 MG CAPSULE PO SCH (08:47)
[2018-04-02] MEDS: ASPIRIN 81 MG TABLET.DR PO SCH (08:48)
[2018-04-02] MEDS: POLYETHYLENE GLYCOL 3350 119 GM BTL PO SCH (08:48)
[2018-04-02] MEDS: FUROSEMIDE 20 MG TABLET PO SCH (08:48)
[2018-04-02] MEDS: FAMOTIDINE 20 MG in DEXTROSE 5 % IN WATER 100 ML IV SCH ×2 (08:49)
[2018-04-02] MEDS ORDERED: SACCHAROMYCES BOULARDII 250 MG CAPSULE PO SCH (09:00)
[2018-04-02] MEDS ORDERED: LEVOFLOXACIN 750 MG TABLET PO ONE (11:40)
--- NOTE | 2018-04-02 11:54 | DS ---
(1) Diabetic foot ulcer associated with type 2 diabetes mellitus Problem: Acute (2) Diabetic foot Problem: Acute (3) Constipation Problem: Resolved (4) Cellulitis of scrotum Problem: Acute (5) Uncontrolled diabetes mellitus Problem: Resolved Qualifiers: Diabetes mellitus type: type 2 (6) Cellulitis of both lower extremities Problem: Acute (7) Pseudomonas aeruginosa infection Problem: Acute Description of Stay: 88 y/o male admitted for Dagoberto. lower extr. and scrotal cellulitis, Diabetic foot ulcer, Constipation was evaluated at bedside and was found to be afebrile and in no acute distress. Yesterday discharge plan had to be delayed for an additional day due to a fever spike. Iv antibiotics were optimized, Acetaminophen was administered, and F/U labs for this morning was ordered. Todays CBC demostrate a decline of WBCs to near normal levels, fever has not recurred, and patient's cellulitis has improved. Final culture results revealed growth of Pseudomas in his foot ulcer. Therefore, patient will be discharged with 5 additional days of PO antibiotics, f/u with clinical exercise specialist, and instructions to f/u with PCP. Procedures Performed: see notes below List Procedures: Ulceration debrided to subcutaneous tissue with #15 blade, excising all hyperkeratotic tissue down to healthy, bleeding subcutaneous wound margins. Surface also debrided with #15 blade excising all devitalized tissue from the surface of the ulceration revealing a healthy, bleeding subcutaneous wound bed. Results and Findings: Pending Mircobiology Results 03/30/18 12:00 Blood Blood Culture - Preliminary NO GROWTH AFTER 48 HOURS 03/30/18 10:27 Blood Blood Culture - Preliminary NO GROWTH AFTER 48 HOURS Lab Pending Results 03/30/18 09:41: Urine Color Yellow, Urine Appearance Clear, Urine pH 5.5, Ur Specific [place] 1.025, Urine Protein Negative, Urine Glucose (UA) 100 H, Urine Ketones Negative, Urine Blood Negative, Urine Nitrate Negative, Urine Bilirubin Negative, Urine Urobilinogen Normal, Ur Leukocyte Esterase Negative, Urine RBC Trace, Urine WBC 0-5, Ur Epithelial Cells 0-5, Urine Bacteria Trace, Urine Culture Comments No culture indicated 03/30/18 10:27: WBC 18.1 H, RBC 4.38 L, Hgb 13.6, Hct 40.1 L, MCV 91.6, MCH 31.1 H, MCHC 33.9, RDW 13.2, Plt Count 212, MPV 9.1, Immature Gran % (Auto) 0.70 H, Immature Gran # (Auto) 0.13 H, Neutrophils % 82.1 H, Lymphocytes % 8.8 L, Monocytes % 7.2, Eosinophils % 0.9, Basophils % 0.3, Nucleated RBC % 0.0, Neutrophils # 14.8 H, Lymphocytes # 1.58, Monocytes # 1.3 H, Eosinophils # 0.2, Absolute Basophils 0.1 03/30/18 10:27: Sodium 131 L, Plasma Sodium 134, Potassium 3.9, Chloride 94 L, Carbon Dioxide 26.3, Anion Gap 14.6 H, BUN 37 H, Creatinine 2.28 H, Est GFR (Non-Af Amer) 29 L D, BUN/Creatinine Ratio 16.2, Random Glucose 267 H, Calcium 9.1, Calcium Adj for Albumin 9.0, Total Bilirubin 0.8, AST 18, ALT 23, Alkaline Phosphatase 95, C-Reactive Prot, Quant Less than 0.2, Total Protein 7.7, Albumin 3.7, Amylase 23 L, Lipase 75 03/30/18 10:27: B-Natriuretic Peptide 814 H 03/30/18 19:40: Creatinine 2.28 H 03/31/18 06:00: WBC 18.0 H, RBC 4.23 L, Hgb 12.9 L, Hct 38.0 L, MCV 89.8, MCH 30.5, MCHC 33.9, RDW 13.2, Plt Count 220, MPV 9.4, Neutrophils % (Manual) 89 H, Lymphocytes % (Manual) 4 L, Monocytes % (Manual) 7, Neutrophils # (Manual) 16.0 H, Lymphocytes # (Manual) 0.7 L, Monocytes # (Manual) 1.3 H, Platelet Estimate Normal, RBC Morphology Normal 03/31/18 06:20: Sodium 133, Plasma Sodium 136, Potassium 4.1, Chloride 97, Carb on Dioxide 24.8, Anion Gap 15.3 H, BUN 39 H, Creatinine 2.21 H, Est GFR (Non-Af Amer) 30 L, BUN/Creatinine Ratio 17.6, Random Glucose 288 H, Calcium 8.8, Calcium Adj for Albumin 9.1, Total Bilirubin 0.6, AST 19, ALT 23, Alkaline Phosphatase 95, Total Protein 7.2, Albumin 3.2 L 04/01/18 04:55: WBC 14.5 H, RBC 3.71 L, Hgb 11.1 L, Hct 33.3 L, MCV 89.8, MCH 29.9, MCHC 33.3, RDW 13.1, Plt Count 216, MPV 9.7, Immature Gran % (Auto) 0.90 H, Immature Gran # (Auto) 0.13 H, Neutrophils % 82.3 H, Lymphocytes % 5.9 L, Monocytes % 8.8, Eosinophils % 1.7, Basophils % 0.4, Nucleated RBC % 0.0, Neutrophils # 11.9 H, Lymphocytes # 0.86 L, Monocytes # 1.3 H, Eosinophils # 0.3, Absolute Basophils 0.1 04/01/18 04:55: Sodium 131 L, Plasma Sodium 132, Potassium 3.7, Chloride 97, Carbon Dioxide 22.0 L, Anion Gap 15.7 H, BUN 40 H, Creatinine 1.90 H, Est GFR (Non-Af Amer) 36 L, BUN/Creatinine Ratio 21.1, Random Glucose 161 H D, Calcium 8.3, Calcium Adj for Albumin 9.0, Total Bilirubin 0.5, AST 25, ALT 26, Alkaline Phosphatase 91, Total Protein 6.2, Albumin 2.7 L 04/02/18 05:35: WBC 11.5 H D, RBC 3.55 L, Hgb 10.7 L, Hct 31.6 L, MCV 89.0, MCH 30.1, MCHC 33.9, RDW 13.2, Plt Count 218, MPV 9.3, Immature Gran % (Auto) 0.70 H, Immature Gran # (Auto) 0.08 H, Neutrophils % 77.7 H, Lymphocytes % 9.0 L, Monocytes % 10.0 H, Eosinophils % 2.3, Basophils % 0.3, Nucleated RBC % 0.0, Neutrophils # 9.0 H, Lymphocytes # 1.04 L, Monocytes # 1.2 H, Eosinophils # 0.3, Absolute Basophils 0.0 Discharge Location: Home Disposition: Home self-care Condition: Good Face to Face Encounter completed per CMS Guidelines: No Discharge Activity: Activity as tolerated Discharge Diet: Consistent carbs Problem Oriented Discharge Instructions to Patient/Family: Diabetes and Foot Care, Cellulitis, Adult, [id number] Additional Patient Instructions (free text): Dr. Gerber office will call you on Monday with follow up appointment. [facility] will call you on Monday with Dr. Traylor follow up appointment. Please call [facility] at 8:00 am. and ask for [place] to get a time to come in and get Vancomycin. Prescriptions (Any new or edited meds): Levofloxacin [Levaquin] 750 mg PO DAILY 5 Days #5 tablet Complete Home Medications List: Complete Home Medication List: Aspirin 81 mg PO DAILY 11/26/14 Cholecalciferol (Vitamin D3) [Vitamin D3] 2,000 units PO DAILY 11/26/14 Cilostazol [Pletal] 100 mg PO BID 11/26/14 Insulin Aspart [Novolog] 10 units SC QAM 11/26/14 Insulin Aspart [Novolog] 40 units SC .AT LUNCH 11/26/14 Insulin Glargine,Hum.rec.anlog [Lantus] 60 units SC HS 11/26/14 Rosuvastatin Calcium [Crestor] 20 mg PO HS 11/26/14 Tamsulosin HCl [Flomax] 0.4 mg PO HS 11/26/14 Zolpidem Tartrate 10 mg PO HS 11/26/14 Clopidogrel Bisulfate [Plavix] 75 mg PO DAILY 03/30/18 Furosemide 20 mg PO DAILY 03/30/18 Metoprolol Rivas/Hydrochlorothiaz [Metoprolol ER-Hctz 25-12.5 mg] 25 mg PO DAILY 1 Docusate Sodium [Colace] 100 mg PO BID capsule 04/01/18 Levofloxacin [Levaquin] 750 mg PO DAILY 5 Days #5 tablet 04/02/18
--- NOTE | 2018-04-02 12:47 | PN ---
Subjective - Date and Time Seen Date: 04/02/18 Time: 12:15 Subjective Narrative: Pt evaluated at bedside resting. States that he feels good today. He is ready to go home. Was supposed to go home yesterday, however developed a fever so was not discharged. Final cultures have returned, growing pseudomonas.. Objective - Review of Systems Generalized/Overall Review: Denies: Weakness, Chills, Fever Respiratory: Denies: Shortness of Breath Abdominal: Denies: Nausea, Vomiting, Diarrhea Neurological: Reports: Numbness Skin: Reports: Other - ulceration left foot - Vitals Vitals: Last Vital Signs Temp 36.4 C 04/02/18 10:50 Pulse 65 04/02/18 10:50 Resp 20 04/02/18 10:50 BP 125/72 04/02/18 10:50 Pulse Ox 95 04/02/18 10:50 - Abnormal Lab Findings Abnormal Lab Findings: Abnormal Lab Results 04/02/18 Range/Units 05:35 WBC 11.5 H D (4.0-10.5) K/mm3 RBC 3.55 L (4.7-6.0) M/mm3 Hgb 10.7 L (13.5-18.0) gm/dL Hct 31.6 L (42.0-52.0) % Immature Gran % (Auto) 0.70 H (0.001-0.429) % Immature Gran # (Auto) 0.08 H (0.000-0.0310) K/mm3 Neutrophils % 77.7 H (42-75.0) % Lymphocytes % 9.0 L (20-51) % Monocytes % 10.0 H (0.0-9) % Neutrophils # 9.0 H (1.3-6.0) K/mm3 Lymphocytes # 1.04 L (1.5-3.5) k/mm3 Monocytes # 1.2 H (0.0-1.0) k/mm3 - Exam Constitutional: Present: Alert, Oriented x3, Cooperative Extremity: Present: lower extremity edema Skin Exam: Present: other - Ulceration left foot sub 1st metatarsal head decreased in size measuring 0.8 x 0.7 x 2.2 cm. Still tunnels to a new ulceration to the medial 1st metatarsal head, measuring 1 x 1 x 2.2 cm. Loss of tissue to full thickness with exposure of subcutaneous fat layer. Base with yellow, fibrotic/necrotic tissue, minimal granulation tissue intermixed. Surrounding tissue still with some erythema that remains about the area of the 1st MtPJ only - improved from previous visit. Minimal sero-purulent drainage, no malodor present. No exposed tendon or bone at this time. Neurologic: Present: sensory deficit Appearance: Present: appropriate appearance Eye contact: Present: cooperative Assessment/Plan - Problems/Diagnosis (1) Cellulitis Problem: Acute Qualifiers: Site of cellulitis: extremity Site of cellulitis of extremity: lower extremity Laterality: left Qualified Code(s): L03.116 - Cellulitis of left lower limb Narrative: Continues to show improvement with redness now only localized about the 1st MtPJ. Likely will improve more with final culture results and placement on more sensitive ABX (Levaquin per PCP). Ok for d/c home today, plan f/u in my office on 04/04/18, at 2:30 pm. (2) Diabetic foot ulcer Problem: Acute Qualifiers: Diabetic foot ulcer location: toe Diabetes mellitus type: type 2 Laterality: left Non-pressure ulcer stage: unspecified non-pressure ulcer stage Qualified Code(s): E11.621 - Type 2 diabetes mellitus with foot ulcer; L97.529 - Non-pressure chronic ulcer of other part of left foot with unspecified severity Narrative: Plantar ulceration improved, new ulceration to medial foot unchanged. New dressing applied today. Again educated on dressing changes at home. Also educated on worsening SOI and he is to seek medical attention immediately should any develop. May bear weight on left foot in surgical shoe. F/u as above.
[2018-04-02 13:34] VITALS: BP 131/47
== END 2018-04-02 13:55 | disposition home or self-care (01) | DRG 638 ==
LOC: ER 09:39 → MS 11:35
PROVIDERS: ADMIT Family Medicine; ATTEND Family Medicine
DX: E11.65 Type 2 diabetes mellitus with hyperglycemia; Z79.02 Long term (current) use of antithrombotics/antiplatelets; R34 Anuria and oliguria; I50.9 Heart failure, unspecified; R50.9 Fever, unspecified; Z95.2 Presence of prosthetic heart valve; L03.115 Cellulitis of right lower limb; L03.116 Cellulitis of left lower limb; Z88.0 Allergy status to penicillin; M79.5 Residual foreign body in soft tissue; R41.0 Disorientation, unspecified; L97.529 Non-pressure chronic ulcer of other part of left foot with unspecified severity; Z23 Encounter for immunization; I11.0 Hypertensive heart disease with heart failure; E11.40 Type 2 diabetes mellitus with diabetic neuropathy, unspecified; Z87.891 Personal history of nicotine dependence; K59.00 Constipation, unspecified; I25.10 Atherosclerotic heart disease of native coronary artery without angina pectoris; N49.2 Inflammatory disorders of scrotum; E78.00 Pure hypercholesterolemia, unspecified; B96.5 Pseudomonas (aeruginosa) (mallei) (pseudomallei) as the cause of diseases classified elsewhere; E11.51 Type 2 diabetes mellitus with diabetic peripheral angiopathy without gangrene; Z79.4 Long term (current) use of insulin; Z96.659 Presence of unspecified artificial knee joint; Z79.82 Long term (current) use of aspirin; Z68.37 Body mass index [BMI] 37.0-37.9, adult; E11.621 Type 2 diabetes mellitus with foot ulcer; E66.01 Morbid (severe) obesity due to excess calories
CPT/HCPCS: 36415; 71010; 71045; 73630; 74019; 74020; 80053; 81001; 82150; 82565; 83519; 83690; 83880; 85007; 85025; 86140; 87040; 87070; 87077; 87081; 87186; 90686; 96361; 96365; 99285

== ENCOUNTER 2018-05-07 14:33 | Inpatient (IN) | payer MEDICARE ==
[2018-05-07] MEDS ORDERED: NORMAL SALINE 1,000 ML IV ONE ×2 (14:45→17:34)
--- NOTE | 2018-05-07 14:56 | ERNOTE ---
Dyspnea - Date Date of Service: 05/07/18 - General Presenting Symptoms: other - Flu-like symptoms, diabetic foot ulcer Time Seen by Provider: 05/07/18 14:39 Source: patient, family, RN notes reviewed, old records Exam Limitations: no limitations - Immun/Allergies/Home Medications Immunizations: IMMUNIZATION HX Immunizations Up to Date Yes History of Influenza Vaccine Yes Hx Pneumococcal Vaccination Yes Allergies/Adverse Reactions: Allergies Penicillins Allergy (Severe, Verified 05/07/18 17:19) Anaphylaxis Hives Home Medications: HOME MEDICATIONS Aspirin 81 mg PO DAILY 11/26/14 [Last Taken 03/30/18] Cholecalciferol (Vitamin D3) [Vitamin D3] 2,000 units PO DAILY 11/26/14 [Last Taken 03/30/18] Cilostazol [Pletal] 100 mg PO BID 11/26/14 [Last Taken 03/30/18] Insulin Aspart [Novolog] 10 units SC QAM 11/26/14 [Last Taken 03/30/18] Insulin Aspart [Novolog] 40 units SC .AT LUNCH 11/26/14 [Last Taken 03/29/18] Insulin Glargine,Hum.rec.anlog [Lantus] 60 units SC HS 11/26/14 [Last Taken 03/29/18] Rosuvastatin Calcium [Crestor] 20 mg PO HS 11/26/14 [Last Taken 03/29/18] Tamsulosin HCl [Flomax] 0.4 mg PO HS 11/26/14 [Last Taken 03/29/18] Zolpidem Tartrate 10 mg PO HS 11/26/14 [Last Taken 03/29/18] Clopidogrel Bisulfate [Plavix] 75 mg PO DAILY 03/30/18 [Last Taken 03/30/18] Furosemide 20 mg PO DAILY 03/30/18 [Last Taken 03/30/18] Metoprolol Rivas/Hydrochlorothiaz [Metoprolol ER-Hctz 25-12.5 mg] 25 mg PO DAILY 03/30/18 [Last Taken 03/30/18] Docusate Sodium [Colace] 100 mg PO BID cap 04/01/18 [Last Taken Unknown] - History of Present Illness Narrative: Mr. Brown is a 88 year old male brought to the ED by his family for flu-like symptoms that began 2 days ago. He has had a cough. He has been on Levaquin and seeing Dr. Gerber in the wound clinic for an ulcer on his left foot. His reports that his foot looked red when she changed the dressing last night. 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 Denies: leg/calf pain Prior Treatment: Reports: recently seen, treated by physician, currently on antibiotics. Denies: recently hospitalized Review of Systems - Review of Systems Constitutional: Present: fever, chills, fatigue, malaise EYE: Present: no symptoms reported ENT: Present: no symptoms reported Respiratory: Present: shortness of breath, cough. Absent: wheezing Cardiology: Absent: chest pain, syncope Gastrointestinal/Abdominal: Present: eating less, drinking less. Absent: vomiting, diarrhea, abdominal pain Genitourinary: Absent: dysuria, decreased urinary output Musculoskeletal: Absent: muscle pain, joint pain Skin: Present: lesions, change in color. Absent: rash Neurological: Present: weakness. 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 Previous back surgery Total knee replacement status Family History: Family History (Last Reviewed 05/07/18 @ 17:39 by Daniela Trent NP) Other No pertinent family history Social History: Preferred Language Swedish Smoking Status Never smoker Abuse History No History of abuse Psych History No pertinent hx Alcohol Use none Drug Use none (Last Updated 04/09/18 @ 15:27 by Skylar Traylor MD) No Social History Section defined Physical Exam - Physical Exam General Appearance: Present: alert, mild distress, obese, other - shaking/chills Head Exam: Present: normal inspection Eye Exam: Normal inspection: bilateral Ears, Nose, Throat: Present: normal ENT inspection, normal pharynx Neck: Present: normal inspection, nontender, supple Respiratory: Present: accessory muscle use - tachypneic, decreased breath sounds - bilateral bases, large body habitus, rhonchi Cardiovascular/Chest: Present: regular rate, rhythm. Absent: normal peripheral pulses Peripheral Pulses: N=norm/S=strong/W=weak/B=bound/A=absent: Dorsalis-pedis (R): Weak, Dorsalis-pedis (L): Weak Gastrointestinal/Abdominal: Present: nontender, nondistended, soft Extremity Exam: Present: joint redness - severe, left 1st MTP, joint swelling - Left 1st MTP Neurological Exam: Present: alert, normal mood/affect, no motor/sensory deficits Skin Exam: Present: normal color, warm/dry, other - ulcer to plantar surface of left 1st distal metatarsal with purulent drainage, foul odor and surrounding redness extending onto great toe and foot ED Progress - Results and Orders Patient's Lab Results:: I have reviewed the patient's lab results. - Vital Signs Patient's Vital Signs:: I have reviewed the patient's vital signs. Vital Signs: Vital Signs 05/07/18 14:33 Temperature 37.7 C Pulse Rate 75 Respiratory Rate 30 H Blood Pressure 153/58 H O2 Sat by Pulse Oximetry 89 L - X-Ray X-Ray #1 X-Ray: foot Interpretation: Reviewed by me X-ray Comments: Foot 3 Views LT * Evaluation is limited by positioning, with dorsiflexion of the toes which obscures the details of the phalanges, especially the first toe. There is questionable cortical discontinuity seen at the lateral first metatarsal sesamoid, with decreased attenuation of the bone compared to the medial sesamoid on the AP image of the foot. There is also questionable lucency at the base of the first proximal phalanx. Joint spaces are in gross normal alignment without subluxation or dislocation. Lisfranc joint grossly intact. There is soft tissue swelling of the first toe as well as potential soft tissue gas adjacent to the first proximal phalanx, best seen on the lateral image. On the lateral image, small radiodensities are seen at the plantar aspect of the foot, as previously described suggestive of potential radiopaque foreign bodies. IMPRESSION: 1. 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 2. Somewhat equivocal findings of the base of the first proximal phalanx, and the first metatarsal lateral sesamoid. Consider potential osteomyelitis. 3. Small radiopaque foreign bodies the plantar aspect of the foot, unchanged. Additional comments are as above. Electronically signed by Dandre Blancas M.D.. X-Ray #2 X-Ray: chest Interpretation: Reviewed by me X-ray Comments: Chest Single View *: Hypoinflated lungs. No definite daksha consolidation noted. Left lower lobe retrocardiac opacity noted suggestive of atelectasis versus potential infiltrate. Pulmonary vasculature is normal. No pneumothorax or pleural fluid collections apparent. There is slight, lenticular pleural thickening centered at the left midlung field, with maximal thickness of approximately 7 mm. Mild to moderate cardiomegaly, grossly stable. There is a stent-like object pro jecting over the heart, likely at the level the aortic root suggestive of prior valvular replacement. Basilar calcification noted overlying the aortic knob. Trachea is in normal position given patient positioning. Osseous structures are grossly intact. Degenerative changes of the spine and shoulders noted. IMPRESSION: 1. Hypoventilatory changes. 2. Left lower lobe retrocardiac opacity suggestive of atelectasis versus infiltrate. Correlate clinically for pneumonia. Consider follow-up to document resolution. Also consider PA and lateral views of the chest, if/when the patient is able. 3. Nonspecific left sided pleural thickening. Consider follow-up by chest CT, which can be performed on a nonemergent basis, unless otherwise clinically indicated. 4. Grossly stable cardiomegaly and other findings are as above. Electronically signed by Dandre Blancas M.D.. - Progress/Reassessment Chief Complaint: Dyspnea Progress:: Improved Plan - Plan Plan: Xrays show a left lower lobe infiltrate and possible osteomyelitis and soft tissue gas in the left foot consistent with possible gas gangrene. WBC is elevated at 16,500. Lactic acid is normal. The patient has been seeing Dr. Gerber in the wound clinic for the ulcer and has been on Levaquin. Dr. Gerber was contacted regarding the wound. She plans to see the patient in the hospital tomorrow morning. She believes that the patient will require surgical intervention for this. He will be started on IV Vancomycin. Dr. Tian was contacted for admission. The patient will also be started on Zithromax and Rocephin for pneumonia. Blood and wound cultures are pending. The patient's chills have improved since he received Tylenol. Vitals are stable. Departure Clinical Impression: Cellulitis and abscess of foot, Failure of outpatient treatment Diabetic foot ulcer associated with type 2 diabetes mellitus Qualifiers: Diabetic foot ulcer location: unspecified part of foot Laterality: unspecified laterality Non-pressure ulcer stage: unspecified non-pressure ulcer stage Qualified Code(s): E11.621 - Type 2 diabetes mellitus with foot ulcer; L97.509 - Non-pressure chronic ulcer of other part of unspecified foot with unspecified severity Pneumonia Qualifiers: Pneumonia type: due to unspecified organism Laterality: left Lung location: lower lobe of lung Qualified Code(s): J18.1 - Lobar pneumonia, unspecified o rganism - Departure Disposition: Still a patient Condition: Serious
[2018-05-07] MEDS ORDERED: ACETAMINOPHEN 325 MG TABLET PO ONE (14:57)
[2018-05-07 15:58] LABS: Hematocrit 34.1 % (42.0-52.0); Mean Cell Volume 92.4 fl (78-100); Mean Corpuscular Hemoglobin 29.8 pg (27-31); Mean Corpuscular Hgb Conc 32.3 g/dl (32-36); Mean Platelet Volume 8.8 fl (8-11.3); Platelet Count 191 K/mm3 (150-450); Red Blood Count 3.69 M/mm3 (4.7-6.0); Red Cell Distribution Width 14.1 % (11.5-14.0); White Blood Count 16.5 K/mm3 (4.0-10.5)
[2018-05-07 16:04] LABS: Total Cells Counted 100
[2018-05-07 16:15] LABS: ALT 23 U/L (19-67); AST 43 U/L (0-48); Albumin * 2.5 gm/dl (3.4-5.0); Alkaline Phosphatase * 90 U/L (50-170); Anion Gap 12.2 mmol/L (6.8-13.8); BUN/Creatinine Ratio 19.2 (9.0-21.6); Bilirubin, Total 0.5 mg/dL (0.0-1.1); Blood Urea Nitrogen 41 mg/dL (6-23); Calcium * 8.1 mg/dL (7.9-10.9); Carbon Dioxide 26.3 mmol/L (24-32.6); Chloride 98 mmol/L (97-106); Glucose * 115 mg/dL (70-110); Potassium 4.5 mmol/L (3.4-4.6); Sodium 132 mmol/L (132-142); Total Protein 6.4 gm/dL (6.2-8.2)
[2018-05-07 17:04] LABS: Atypical (Reactive) Lymph 1 % (0-2); Band 3 % (0-2.0); Immature Granulocyte 2 (0-1); Lymphocyte 5 % (20-51); Monocyte 10 % (0-9); Neutrophil 79 % (42-75)
[2018-05-07] MEDS ORDERED: VANCOMYCIN HCL 1 GM in DEXTROSE 5 % IN WATER 250 ML IV ONE ×2 (17:08)
[2018-05-07] MEDS ORDERED: AZITHROMYCIN 250 MG TABLET PO ONE (17:08)
[2018-05-07] MEDS ORDERED: DEXTROSE 5 % IN WATER 100 ML BAG IV ONE (17:30)
--- NOTE | 2018-05-07 20:12 | HP ---
Chief Complaint - Chief Complaint Date of Service: 05/07/18 Time of Service: 20:06 Chief Complaint: flu like symptoms History of Present Illness: Farzad Brown, is a 88-year-old white male, patient of Dr. Traylor, with past medical history of diabetes mellitus type 2, diabetic neuropathy, peripheral vascular disease, hypertension, AV replacement, who was admitted on 05/07/2018 for flu-like symptoms. 2 days prior to admission as per family the patient had flulike symptoms. He developed cough. He has been on Levaquin and sees our embossing unit operator Dr. Gerber for his chronic ulcers of his left foot. As per the foot looked a little redder when she changed the dressing the night before admission. In the emergency room. e was found to have an elevated blood counts and a CXR with atelectasis vs infiltrate. He also had some pleural th ickening. 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 Smoking Status Former smoker Have you smoked in the past 12 No months Abuse History No History of abuse Psych History No pertinent hx Alcohol Use none Drug Use none (Last Updated 04/09/18 @ 15:27 by Skylar Traylor MD) No Social History Section defined Review Of Systems (GEN) - Review of Systems Generalized/Overall Review: Present: Weakness, Chills, Fever, Fatigue Respiratory: Present: Cough, Shortness of Breath. Absent: Wheezing Cardiac: Absent: Chest Pain, Edema, Palpitations Abdominal: Absent: Nausea, Vomiting Genitourinary: Absent: Urgency, Frequency Musculoskeletal: Present: Joint Pain Immunizations: IMMUNIZATION HX Immunizations Up to Date Yes History of Influenza Vaccine Yes Hx Pneumococcal Vaccination Yes Allergies/Adverse Reactions: Allergies Allergy/AdvReac Type Severity Reaction Status Date / Time Penicillins Allergy Severe Anaphylaxis Verified 05/20/18 17:39 Home Medications: HOME MEDICATIONS Aspirin 81 mg PO DAILY 11/26/14 [Last Taken 03/30/18] Cholecalciferol (Vitamin D3) [Vitamin D3] 2,000 units PO DAILY 11/26/14 [Last Taken 03/30/18] Cilostazol [Pletal] 100 mg PO BID 11/26/14 [Last Taken 03/30/18] Insulin Aspart [Novolog] 10 units SC QAM 11/26/14 [Last Taken 03/30/18] Insulin Aspart [Novolog] 40 units SC .AT LUNCH 11/26/14 [Last Taken 03/29/18] Insulin Glargine,Hum.rec.anlog [Lantus] 60 units SC HS 11/26/14 [Last Taken 03/29/18] Rosuvastatin Calcium [Crestor] 20 mg PO HS 11/26/14 [Last Taken 03/29/18] Tamsulosin HCl [Flomax] 0.4 mg PO HS 11/26/14 [Last Taken 03/29/18] Zolpidem Tartrate 10 mg PO HS 11/26/14 [Last Taken 03/29/18] Clopidogrel Bisulfate [Plavix] 75 mg PO DAILY 03/30/18 [Last Taken 03/30/18] Furosemide 20 mg PO DAILY 03/30/18 [Last Taken 03/30/18] Metoprolol Rivas/Hydrochlorothiaz [Metoprolol ER-Hctz 25-12.5 mg] 25 mg PO DAILY 03/30/18 [Last Taken 03/30/18] Docusate Sodium [Colace] 100 mg PO BID cap 04/01/18 [Last Taken Unknown] 0.9 % Sodium Chloride [Normal Saline Flush] 10 ml IJ BID #10 disp.syrin 05/15/18 [Last Taken Unknown] Meropenem [Merrem] 1 gm IV Q12H 10 Days #20 vial 05/15/18 [Last Taken Unknown] oxyCODONE HCL/ACETAMINOPHEN [Percocet 5-325 mg Tablet] 1 each PO Q8H PRN #30 tablet 05/15/18 [Last Taken Unknown] Saccharomyces Boulardii [Florastor] 250 mg PO BID 10 Days #20 capsule 05/21/18 [Last Taken Unknown] Exam - Exam Vital Signs: Vital Signs - Last Taken Temp 36.0 C 05/07/18 19:08 Pulse 59 L 05/07/18 19:08 Resp 18 05/07/18 19:08 BP 114/40 05/07/18 19:08 Pulse Ox 93 05/07/18 19:08 Constitutional: Present: Alert, Oriented x3, Cooperative, Elderly ENT Exam: Present: hearing grossly normal Eye Exam: bilateral eye: normal inspection, PERRL, EOMI Neck: Present: supple Respiratory: Present: decreased breath sounds, rhonchi. Absent: crackles, wheezing Cardiovascular/Chest: Present: regular rate, rhythm, no JVD, no murmur Abdomen: Present: Normal bowel sounds, soft, nontender, nondistended Extremity: Present: no calf tenderness, other - positive srythema, positive ulcers Diagnostic Studies: Abnormal Lab Results 05/07/18 05/07/18 05/07/18 Range/Units 15:56 15:56 15:56 WBC 16.5 H (4.0-10.5) K/mm3 RBC 3.69 L (4.7-6.0) M/mm3 Hgb 11.0 L (13.5-18.0) gm/dL Hct 34.1 L (42.0-52.0) % RDW 14.1 H (11.5-14.0) % Neutrophils % (Manual) 79 H (42-75) % Band Neuts % (Manual) 3 H (0-2.0) % Lymphocytes % (Manual) 5 L (20-51) % Monocytes % (Manual) 10 H (0-9) % Immature Granulocytes 2 H (0-1) Neutrophils # (Manual) 13.0 H (1.3-6.0) K/mm3 Lymphocytes # (Manual) 0.8 L (1.5-3.5) k/mm3 Monocytes # (Manual) 1.7 H (0.0-1.0) k/mm3 ESR 114 H (0-10) mm/hr BUN 41 H (6-23) mg/dL Creatinine 2.13 H (0.4-1.4) mg/dL Est GFR (Non-Af Amer) 31 L (60-130) mL/min Random Glucose 115 H (70-110) mg/dL Albumin 2.5 L (3.4-5.0) gm/dl Laboratory Results WBC 16.5 K/mm3 (4.0-10.5) H 05/07/18 15:56 RBC 3.69 M/mm3 (4.7-6.0) L 05/07/18 15:56 Hgb 11.0 gm/dL (13.5-18.0) L 05/07/18 15:56 Hct 34.1 % (42.0-52.0) L 05/07/18 15:56 MCV 92.4 fl (78-100) 05/07/18 15:56 MCH 29.8 pg (27-31) 05/07/18 15:56 MCHC 32.3 g/dl (32-36) 05/07/18 15:56 RDW 14.1 % (11.5-14.0) H 05/07/18 15:56 Plt Count 191 K/mm3 (150-450) 05/07/18 15:56 MPV 8.8 fl (8-11.3) 05/07/18 15:56 Neutrophils % (Manual) 79 % (42-75) H 05/07/18 15:56 Band Neuts % (Manual) 3 % (0-2.0) H 05/07/18 15:56 Lymphocytes % (Manual) 5 % (20-51) L 05/07/18 15:56 Monocytes % (Manual) 10 % (0-9) H 05/07/18 15:56 Immature Granulocytes 2 (0-1) H 05/07/18 15:56 Neutrophils # (Manual) 13.0 K/mm3 (1.3-6.0) H 05/07/18 15:56 Lymphocytes # (Manual) 0.8 k/mm3 (1.5-3.5) L 05/07/18 15:56 Monocytes # (Manual) 1.7 k/mm3 (0.0-1.0) H 05/07/18 15:56 Atypic/Reactive Lymphs 1 % (0-2) 05/07/18 15:56 ESR 114 mm/hr (0-10) H 05/07/18 15:56 Sodium 132 mmol/L (132-142) 05/07/18 15:56 Plasma Sodium 132 mmol/L (130-142) 05/07/18 15:56 Potassium 4.5 mmol/L (3.4-4.6) D 05/07/18 15:56 Chloride 98 mmol/L (97-106) 05/07/18 15:56 Carbon Dioxide 26.3 mmol/L (24-32.6) 05/07/18 15:56 Anion Gap 12.2 mmol/L (6.8-13.8) 05/07/18 15:56 BUN 41 mg/dL (6-23) H 05/07/18 15:56 Creatinine 2.13 mg/dL (0.4-1.4) H 05/07/18 15:56 Est GFR (Non-Af Amer) 31 mL/min (60-130) L 05/07/18 15:56 BUN/Creatinine Ratio 19.2 (9.0-21.6) 05/07/18 15:56 Random Glucose 115 mg/dL (70-110) H 05/07/18 15:56 Lactic Acid, Venous 1.6 mmol/L (0.4-2.0) 05/07/18 15:56 Calcium 8.1 mg/dL (7.9-10.9) 05/07/18 15:56 Calcium Adj for Albumin 9.0 mg/dL (8.4-10.2) 05/07/18 15:56 Total Bilirubin 0.5 mg/dL (0.0-1.1) 05/07/18 15:56 AST 43 U/L (0-48) 05/07/18 15:56 ALT 23 U/L (19-67) 05/07/18 15:56 Alkaline Phosphatase 90 U/L (50-170) 05/07/18 15:56 C-Reactive Prot, Quant Less than 0.2 mg/dL (0.0-0.9) 05/07/18 15:56 Total Protein 6.4 gm/dL (6.2-8.2) 05/07/18 15:56 Albumin 2.5 gm/dl (3.4-5.0) L 05/07/18 15:56 Assessment/Plan - Assessment/Plan (1) Pneumonia Assessment: will do IV Rocephin and Azithromycin Problem: Acute Qualifiers: Pneumonia type: due to unspecified organism Laterality: left Lung location: lower lobe of lung Qualified Code(s): J18.1 - Lobar pneumonia, unspecified organism (2) Cellulitis Assessment: continue with IV rocephin. podiatry consult Problem: Acute Qualifiers: Site of cellulitis: extremity Site of cellulitis of extremity: lower extrem ity Laterality: left Qualified Code(s): L03.116 - Cellulitis of left lower limb (3) PVD (peripheral vascular disease) Problem: Acute (4) Diabetic foot ulcer Assessment: continue with IV rocephin Problem: Chronic Qualifiers: Diabetic foot ulcer location: toe Diabetes mellitus type: type 2 Laterality: left Non-pressure ulcer stage: unspecified non-pressure ulcer stage Qualified Code(s): E11.621 - Type 2 diabetes mellitus with foot ulcer; L97.529 - Non-pressure chronic ulcer of other part of left foot with unspecified severity (5) Uncontrolled diabetes mellitus Problem: Chronic Qualifiers: Diabetes mellitus type: type 2 Glycemic state: with hyperglycemia Qualified Code(s): E11.65 - Type 2 diabetes mellitus with hyperglycemia (6) Osteomyelitis Assessment: refer to Podiatry for debridement and sequestrectomy. will need PICC line if OM is established for termite exterminator antibitoics. Problem: Acute Qualifiers: Osteomyelitis type: unspecified type Osteomyelitis location: foot Laterality: left Qualified Code(s): M86.9 - Osteomyelitis, unspecified
[2018-05-07] MEDS ORDERED: ROSUVASTATIN CALCIUM 10 MG TABLET ONE (20:48)
[2018-05-07] MEDS: TAMSULOSIN HCL 0.4 MG CAP.SR.24H PO SCH (20:51)
[2018-05-07] MEDS: ROSUVASTATIN CALCIUM 20 MG TABLET PO SCH (20:51)
[2018-05-07] MEDS: ZOLPIDEM TARTRATE 10 MG TABLET PO SCH (20:51)
[2018-05-07] MEDS: DOCUSATE SODIUM 100 MG CAPSULE PO SCH (20:52)
[2018-05-07] MEDS: CILOSTAZOL 100 MG TABLET PO SCH (20:52)
[2018-05-07] MEDS: INSULIN GLARGINE,HUM.REC.ANLOG 100 UNITS/ML VIAL SC SCH (20:53)
[2018-05-08 05:32] LABS: Hematocrit 31.7 % (42.0-52.0); Hemoglobin 10.2 gm/dL (13.5-18.0); Mean Cell Volume 91.9 fl (78-100); Mean Corpuscular Hemoglobin 29.6 pg (27-31); Mean Corpuscular Hgb Conc 32.2 g/dl (32-36); Mean Platelet Volume 8.8 fl (8-11.3); Neutrophil # 10.4 K/mm3 (1.3-6.0); Neutrophil % 81.8 % (42-75.0); Platelet Count 184 K/mm3 (150-450); Red Blood Count 3.45 M/mm3 (4.7-6.0); Red Cell Distribution Width 14.2 % (11.5-14.0); White Blood Count 12.7 K/mm3 (4.0-10.5)
[2018-05-08 05:39] LABS: Anion Gap 11.8 mmol/L (6.8-13.8); BUN/Creatinine Ratio 18.7 (9.0-21.6); Calcium * 8.1 mg/dL (7.9-10.9); Carbon Dioxide 26.2 mmol/L (24-32.6); Estimated Creat Clear 26.3
[2018-05-08] MEDS ORDERED: NORMAL SALINE 500 ML IV ONE (07:04)
[2018-05-08] MEDS: CHOLECALCIFEROL 1,000 UNIT CAPSULE PO SCH (09:06)
[2018-05-08] MEDS: CLOPIDOGREL BISULFATE 75 MG TABLET PO SCH (09:06)
[2018-05-08] MEDS: ASPIRIN 81 MG TABLET.DR PO SCH (09:06)
[2018-05-08] MEDS: CILOSTAZOL 100 MG TABLET PO SCH (09:06)
[2018-05-08] MEDS: DOCUSATE SODIUM 100 MG CAPSULE PO SCH (09:06)
[2018-05-08] MEDS: METOPROLOL SUCCINATE 25 MG TABLET.SA PO SCH (09:11)
[2018-05-08] MEDS: HYDROCHLOROTHIAZIDE 12.5 MG CAPSULE PO SCH (09:12)
[2018-05-08] MEDS ORDERED: INSULIN ASPART 100 UNITS/ML VIAL SC SCH (09:15)
[2018-05-08] MEDS ORDERED: NORMAL SALINE 1,000 ML IV ONE (09:26)
[2018-05-08] MEDS ORDERED: LIDOCAINE HCL 50 ML VIAL IM ONE (09:36)
[2018-05-08] MEDS: AZITHROMYCIN 500 MG in DEXTROSE 5 % IN WATER 250 ML IV SCH ×2 (10:07)
--- NOTE | 2018-05-08 11:22 | PN ---
Subjective - Date and Time Seen Date: 05/08/18 Time: 11:01 Subjective Narrative: I've got a cough and my left foot hurt. Objective Objective Narrative: 88-year-old male admitted for left foot diabetic, left lower extremity cellulitis, osteomyelitis, and bronchopneumonia was evaluated at bedside and was found to be afebrile and in no acute distress. Patient continues on IV antibiotic, and IV hydration, culture results are pending. X-rays of the left lower extremity on admission demonstrated possible osteomyelitis specifically of the first metatarsal. Patient's left forefoot was found to be erythematous with with a dark necrotic ulcer on the dorsal first metatarsal and an ulcer on the sole and base of the same digit. Consultation with Dr. Gerber the podiatric surgeon was requested for debridement and further evaluation. We will wait for her recommendations. - Review of Systems Generalized/Overall Review: Reports: No Symptoms Reported, Weakness EENTM: Reports: No Symptoms Reported Respiratory: Reports: Cough Cardiac: Reports: No Symptoms Reported Abdominal: Reports: No Symptoms Reported Genitourinary Symptoms: Reports: No Symptoms Reported Musculoskeletal Complaints: Reports: Joint Pain Neurological: Reports: No Symptoms Reported Skin: Reports: No Symptoms Reported Endocrine: Reports: No Symptoms Reported - Vitals Vitals: Last Vital Signs Temp 36.6 C 05/08/18 09:12 Pulse 70 05/08/18 09:12 Resp 17 05/08/18 09:12 BP 113/58 05/08/18 09:12 Pulse Ox 98 05/08/18 09:12 - Abnormal Lab Findings Abnormal Lab Findings: Abnormal Lab Results 05/07/18 05/07/18 05/07/18 Range/Units 15:56 15:56 15:56 WBC 16.5 H (4.0-10.5) K/mm3 RBC 3.69 L (4.7-6.0) M/mm3 Hgb 11.0 L (13.5-18.0) gm/dL Hct 34.1 L (42.0-52.0) % RDW 14.1 H (11.5-14.0) % Immature Gran % (Auto) (0.001-0.429) % Immature Gran # (Auto) (0.000-0.0310) K/mm3 Neutrophils % (42-75.0) % Neutrophils % (Manual) 79 H (42-75) % Band Neuts % (Manual) 3 H (0-2.0) % Lymphocytes % (20-51) % Lymphocytes % (Manual) 5 L (20-51) % Monocytes % (0.0-9) % Monocytes % (Manual) 10 H (0-9) % Immature Granulocytes 2 H (0-1) Neutrophils # (1.3-6.0) K/mm3 Neutrophils # (Manual) 13.0 H (1.3-6.0) K/mm3 Lymphocytes # (1.5-3.5) k/mm3 Lymphocytes # (Manual) 0.8 L (1.5-3.5) k/mm3 Monocytes # (0.0-1.0) k/mm3 Monocytes # (Manual) 1.7 H (0.0-1.0) k/mm3 ESR 114 H (0-10) mm/hr BUN 41 H (6-23) mg/dL Creatinine 2.13 H (0.4-1.4) mg/dL Est GFR (Non-Af Amer) 31 L (60-130) mL/min Random Glucose 115 H (70-110) mg/dL Albumin 2.5 L (3.4-5.0) gm/dl 05/08/18 05/08/18 Range/Units 05:10 05:10 WBC 12.7 H D (4.0-10.5) K/mm3 RBC 3.45 L (4.7-6.0) M/mm3 Hgb 10.2 L (13.5-18.0) gm/dL Hct 31.7 L (42.0-52.0) % RDW 14.2 H (11.5-14.0) % Immature Gran % (Auto) 0.80 H (0.001-0.429) % Immature Gran # (Auto) 0.10 H (0.000-0.0310) K/mm3 Neutrophils % 81.8 H (42-75.0) % Neutrophils % (Manual) (42-75) % Band Neuts % (Manual) (0-2.0) % Lymphocytes % 7.7 L (20-51) % Lymphocytes % (Manual) (20-51) % Monocytes % 9.2 H (0.0-9) % Monocytes % (Manual) (0-9) % Immature Granulocytes (0-1) Neutrophils # 10.4 H (1.3-6.0) K/mm3 Neutrophils # (Manual) (1.3-6.0) K/mm3 Lymphocytes # 0.98 L (1.5-3.5) k/mm3 Lymphocytes # (Manual) (1.5-3.5) k/mm3 Monocytes # 1.2 H (0.0-1.0) k/mm3 Monocytes # (Manual) (0.0-1.0) k/mm3 ESR (0-10) mm/hr BUN 40 H (6-23) mg/dL Creatinine 2.14 H (0.4-1.4) mg/dL Est GFR (Non-Af Amer) 31 L (60-130) mL/min Random Glucose (70-110) mg/dL Albumin (3.4-5.0) gm/dl - Exam Constitutional: Present: Alert, Oriented x3, Cooperative, Well developed, Well nourished, No distress, Elderly, Morbidly obese ENT Exam: Present: normal ENT inspection, pharynx normal, TMs normal, hard of hearing Neck: Present: non-tender, full range of motion, supple, normal inspection, trachea midline Breasts: Present: Exam deferred Respiratory: Present: chest non-tender, no respiratory distress, no accessory muscle use, crackles - Bibasilar crackles Cardiovascular/Chest: Present: normal peripheral pulses, regular rate, rhythm, no chest tenderness, no edema, no gallop, no JVD, no murmur, no rub Abdomen: Present: Normal bowel sounds, soft, nontender, nondistended, no rebound tenderness, no hepatospenomegaly, no masses, obese /Rectal: Present: Exam deferred Extremity: Present: normal range of motion, non-tender, normal inspection, no pedal edema, no calf tenderness, normal capillary refill Skin Exam: Present: normal color, warm/dry, no cyanosis Lymphatic: Present: no adenopathy Neurologic: Present: route cdl driver II-XII nml as tested, normal cerebellar test, no motor/sensory deficits, alert, normal mood/affect, oriented x 3 Appearance: Present: appropriate appearance, appropriate insight, neat, no memory impairment Eye contact: Present: cooperative, good eye contact, normal speech Thoughts: Present: normal thought pattern, no apparent hallucination Assessment/Plan Plan Narrative: Today's morning labs demonstrate a downward trend of the patient's WBCs which indicate a favorable response to the current management. We will continue IV antibiotics and IV hydration, and await recommendations from the hospital pod iatrist. Follow-up labs have been ordered for tomorrow morning and culture results are pending. We will continue to monitor closely. - Problems/Diagnosis (1) Diabetic foot ulcer Problem: Chronic Qualifiers: Diabetic foot ulcer location: toe Diabetes mellitus type: type 2 Laterality: left Non-pressure ulcer stage: unspecified non-pressure ulcer stage Qualified Code(s): E11.621 - Type 2 diabetes mellitus with foot ulcer; L97.529 - Non-pressure chronic ulcer of other part of left foot with unspecified severity Narrative: We will continue IV antibiotics and follow recommendations from podiatric surgeon. (2) Cellulitis of left lower extremity Problem: Acute Narrative: We will continue IV antibiotics (3) Pneumonia Problem: Acute Qualifiers: Pneumonia type: due to unspecified organism Laterality: left Lung location: lower lobe of lung Qualified Code(s): J18.1 - Lobar pneumonia, unspecified organism Narrative: We will continue IV antibiotics (4) Moderate dehydration Problem: Acute Narrative: We will continue IV hydration (5) Diabetes 1.5, managed as type 2 Problem: Chronic Narrative: We will treat patient with insulin therapy and a diabetic diet for optimal glucose control.
[2018-05-08] MEDS: INSULIN LISPRO 100 UNITS/ML VIAL SC SCH ×2 (11:47→17:12)
--- NOTE | 2018-05-08 12:29 | CONS ---
[facility] - General Date of Service: 05/08/18 Narrative: Mr Brown is a known patient of mine whom I have been following in the [facility] for a chronic DM ulceration to his left foot. Pt had been making steady progress in improvement of this ulceration over the last few visits. He had been taking Levaquin daily and was responding well. was changing dressings daily at home, consisting of Aquacel Ag, dry gauze, ramon, and tape. States that the foot was doing well until this past Monday. She noticed that the foot was beginning to show some increased redness and there was a foul odor from the foot. Pt also had c/o that he did not feel very well and was not eating much. Also had SOB. did finally convince patient to come to the ED yesterday for evaluation and was found to have worsening infection of his foot with cellulitis up past his ankle and xrays with concerns for osteomyelitis of the great toe. Was also diagnosed with pneumonia. He was admitted and placed on IV ABX, to which he appears to be responding to with improvement in WBC count. Culture has been obtained and is pending at this time. I was consulted for surgical evaluation and continued wound care. Source: patient, family - History of Present Illness Severity: severe Associated Symptoms: fever/chills, loss of appetite, malaise, shortness of breath, weakness Allergies/Adverse Reactions: Allergies Penicillins Allergy (Severe, Verified 05/07/18 17:19) Anaphylaxis Hives Home Medications: Home Medications Medication Instructions Recorded Last Taken Aspirin 81 mg PO DAILY 11/26/14 03/30/18 Cholecalciferol (Vitamin D3) 2,000 units PO DAILY 11/26/14 03/30/18 [Vitamin D3] Cilostazol [Pletal] 100 mg PO BID 11/26/14 03/30/18 Insulin Aspart [Novolog] 10 units SC QAM 11/26/14 03/30/18 Insulin Aspart [Novolog] 40 units SC .AT LUNCH 11/26/14 03/29/18 Insulin Glargine,Hum.rec.anlog 60 units SC HS 11/26/14 03/29/18 [Lantus] Rosuvastatin Calcium [Crestor] 20 mg PO HS 11/26/14 03/29/18 Tamsulosin HCl [Flomax] 0.4 mg PO HS 11/26/14 03/29/18 Zolpidem Tartrate 10 mg PO HS 11/26/14 03/29/18 Clopidogrel Bisulfate [Plavix] 75 mg PO DAILY 03/30/18 03/30/18 Furosemide 20 mg PO DAILY 03/30/18 03/30/18 Metoprolol Rivas/Hydrochlorothiaz 25 mg PO DAILY 03/30/18 03/30/18 [Metoprolol ER-Hctz 25-12.5 mg] Docusate Sodium [Colace] 100 mg PO BID cap 04/01/18 Unknown Procedures Closed [transurethral] biopsy of bladder (12/10/14) Excision of Left Foot Subcutaneous Tissue and Fascia, Percutaneous Approach (03/30/18) Introduction of Serum, Toxoid and Vaccine into Muscle, Percutaneous Approach (03/30/18) Other cystoscopy (11/26/14) Retrograde pyelogram (12/10/14) Medications - Medications Current Medications: Current Medications Aspirin (Aspirin Enteric Coated) 81 mg PO DAILY ZAIDA Stop: 06/07/18 09:01 Last Admin: 05/08/18 09:06 Dose: 81 mg Cholecalciferol (Vitamin D) 2,000 unit PO DAILY ZAIDA Stop: 06/07/18 09:01 Last Admin: 05/08/18 09:06 Dose: 2,000 unit Cilostazol (Pletal) 100 mg PO BID ZAIDA Stop: 06/06/18 21:01 Last Admin: 05/08/18 09:06 Dose: 100 mg Clopidogrel Bisulfate (Plavix) 75 mg PO DAILY ZAIDA Stop: 06/07/18 09:01 Last Admin: 05/08/18 09:06 Dose: 75 mg Docusate Sodium (Colace) 100 mg PO BID ZAIDA Stop: 06/06/18 21:01 Last Admin: 05/08/18 09:06 Dose: 100 mg Hydrochlorothiazide (Microzide) 12.5 mg PO DAILY ZAIDA Stop: 06/07/18 09:01 Last Admin: 05/08/18 09:12 Dose: Not Given Sodium Chloride (Sodium Chloride 0.9%) 1,000 mls @ 125 mls/hr IV .Q8H ONE Stop: 05/08/18 17:25 Last Admin: 05/08/18 09:54 Dose: 125 mls/hr Azithromycin 500 mg/ Dextrose/ (Water) 250 mls @ 250 mls/hr IV Q24H [facility]; Protocol Stop: 05/11/18 09:36 Last Admin: 05/08/18 10:07 Dose: 250 mls/hr Ceftriaxone Sodium 2,000 mg/ (Dextrose/Water) 100 mls @ 200 mls/hr IV Q24H [facility] Stop: 06/07/18 10:31 Last Admin: 05/08/18 11:42 Dose: 200 mls/hr Insulin Glargine (Lantus) 60 units SC [facility] Stop: 06/06/18 21:01 Last Admin: 05/07/18 20:53 Dose: 60 units Insulin Human Lispro (Humalog) 0 units SC [facility]; Protocol Stop: 06/07/18 12:01 Last Admin: 05/08/18 11:47 Dose: 4 units Metoprolol Succinate (Toprol Xl) 25 mg PO DAILY [facility] Stop: 06/07/18 09:01 Last Admin: 05/08/18 09:11 Dose: Not Given Rosuvastatin Calcium (Crestor) 20 mg PO [facility] Stop: 06/06/18 21:01 Last Admin: 05/07/18 20:51 Dose: 20 mg Tamsulosin HCl (Flomax) 0.4 mg PO [facility] Stop: 06/06/18 21:01 Last Admin: 05/07/18 20:51 Dose: 0.4 mg Zolpidem Tartrate (Ambien) 10 mg PO [facility] Stop: 06/06/18 21:01 Last Admin: 05/07/18 20:51 Dose: 10 mg Review of Systems - Review of Systems Generalized/Overall Review: Present: Chills, Malaise, Fatigue Respiratory: Present: Cough, Shortness of Breath Cardiac: Present: Edema Musculoskeletal: Present: Other - left foot pain Neurological: Present: Numbness, Weakness Skin: Present: Other - left foot ulceration, redness, swelling Physical Examination - Exam Vital Signs: Vital Signs - Last Taken Temp 36.6 C 05/08/18 09:12 Pulse 70 05/08/18 09:12 Resp 17 05/08/18 09:12 BP 113/58 05/08/18 09:12 Pulse Ox 98 05/08/18 09:12 O2 Oxygen Delivery Method Room Air Constitutional: Present: Alert, Oriented x3, Cooperative Peripheral Pulses: dorsalis-pedis (L): 0 - PT pulse non-palpable, CRFT delayed to all toes Extremity: Present: lower extremity edema Skin Exam: Present: other - There are 3 ulcerations present about the patient's left foot. Ulceration #1 is located to the left lateral fourth toe and measures 2 x 1.3 x 0.1 cm. There is no tunneling or undermining noted. Loss of tissue is to full thickness with exposure of subcutaneous fat layer. The wound bed is covered with a significant amount of yellow, fibrotic, slough tissue. The surrounding tissue is slightly macerated otherwise pink and intact. There is a moderate amount of serous drainage noted with no malodor present. There is no exposed tendon, however bone is now palpated at the DIPJ. Ulceration #2 is located to the medial aspect of the fifth toe and measures 1.3 x 1.6 x 0.1 cm. There is no tunneling or undermining noted. Loss of tissue is to full thickness with exposure of subcutaneous fat layer. The wound bed is covered with a sign ificant amount of yellow, fibrotic, slough tissue with a smaller amount of red granulation tissue intermixed. The surrounding tissue is slightly macerated, otherwise pink and intact. There is a minimal amount of serous drainage noted with no malodor present. There is no exposed tendon or bone at this time. Ulceration #3 is located to the medial aspect of the left foot at the area of the first metatarsal head and measures 3 x 2 x 2 cm. The wound does not undermine, however, does tunnel from the 4-6 o'clock location to a depth of 3.6 cm. Loss of tissue is to full thickness with exposure of subcutaneous fat layer. The wound bed is covered with a significant amount of robertson, necrotic tissue. The surrounding tissue is significantly erythematous with erythema that extends from the great toe to the distal lower leg. There is a moderate amount of sero-purulent drainage noted with strong malodor present. There is no exposed tendon, however the medial aspect of the 1st metatarsal head is now exposed. Neurologic: Present: sensory deficit - Results and Findings: Lab/Microbiology results last 24 hrs: Abnormal/Pending Laboratory Last 24 HRS 05/08/18 05/08/18 05/07/18 05:10 05:10 15:56 WBC 12.7 H D RBC 3.45 L Hgb 10.2 L Hct 31.7 L RDW 14.2 H Immature Gran % (Auto) 0.80 H Immature Gran # (Auto) 0.10 H Neutrophils % 81.8 H Neutrophils % (Manual) Band Neuts % (Manual) Lymphocytes % 7.7 L Lymphocytes % (Manual) Monocytes % 9.2 H Monocytes % (Manual) Immature Granulocytes Neutrophils # 10.4 H Neutrophils # (Manual) Lymphocytes # 0.98 L Lymphocytes # (Manual) Monocytes # 1.2 H Monocytes # (Manual) ESR BUN 40 H 41 H Creatinine 2.14 H 2.13 H Est GFR (Non-Af Amer) 31 L 31 L Random Glucose 115 H Albumin 2.5 L 05/07/18 05/07/18 15:56 15:56 WBC 16.5 H RBC 3.69 L Hgb 11.0 L Hct 34.1 L RDW 14.1 H Immature Gran % (Auto) Immature Gran # (Auto) Neutrophils % Neutrophils % (Manual) 79 H Band Neuts % (Manual) 3 H Lymphocytes % Lymphocytes % (Manual) 5 L Monocytes % Monocytes % (Manual) 10 H Immature Granulocytes 2 H Neutrophils # Neutrophils # (Manual) 13.0 H Lymphocytes # Lymphocytes # (Manual) 0.8 L Monocytes # Monocytes # (Manual) 1.7 H ESR 114 H BUN Creatinine Est GFR (Non-Af Amer) Random Glucose Albumin Culture 05/07/18 15:10 Wound Culture - Preliminary Foot - Left No Growth - Assessments/Findings (1) Diabetic foot ulcer Diagnosis(s): Wound debrided at bedside to subcutaneous tissue with #15 blade, excising all necrotic tissue from the ulceration revealing a bleeding wound bed. Due to expanse of necrosis present, some necrotic tissue did remain on the wound. Hemostasis is achieved with compression. Ulcerations dressed with Aquacel Ag, dry gauze, ramon, and ROX bandage. Dressing to be changed daily. Problem: Chronic Qualifiers: Diabetic foot ulcer location: toe Diabetes mellitus type: type 2 Laterality: left Non-pressure ulcer stage: unspecified non-pressure ulcer stage Qualified Code(s): E11.621 - Type 2 diabetes mellitus with foot ulcer; L97.529 - Non-pressure chronic ulcer of other part of left foot with unspecified severity (2) Cellulitis and abscess of foot Diagnosis(s): Will continue current ABX as he seems to be responding. Will await final culture results and can adjust accordingly. Problem: Acute (3) Osteomyelitis Diagnosis(s): Will order MRI to evaluate extent of current infection. Discussed with pt and options for treatment of bone infection to include, but not limited to, continued current care with dressing changes and local debridement, however infection can spread and can be life-threatening vs fci IV ABX, approx 6-8 weeks, with no guarantee that infection will resolve and may need surgical care vs surgery, which may include partial 1st ray amputation or TMA pending MRI results. Pt is adamant that he will not have surgery. Advised patient and to discuss. We can revisit treatment options once MRI is completed and I have a better picture of how far spread the infection is. is in agreement with this plan. Will check back tomorrow to see if infection has improved and discuss treatment moving forward. Again advised that these infections can be fast progressing and can be life-threatening if not treated appropriately. States understanding. Problem: Acute
[2018-05-09] MEDS: VANCOMYCIN HCL 1 GM in DEXTROSE 5 % IN WATER 250 ML IV SCH ×2 (00:28)
[2018-05-09] MEDS: ZOLPIDEM TARTRATE 10 MG TABLET PO SCH ×2 (00:45→22:53)
[2018-05-09] MEDS: TAMSULOSIN HCL 0.4 MG CAP.SR.24H PO SCH ×2 (00:45→20:48)
[2018-05-09] MEDS: ROSUVASTATIN CALCIUM 20 MG TABLET PO SCH ×2 (00:45→20:48)
[2018-05-09] MEDS: DOCUSATE SODIUM 100 MG CAPSULE PO SCH ×3 (00:45→21:07)
[2018-05-09] MEDS: INSULIN LISPRO 100 UNITS/ML VIAL SC SCH ×5 (00:55→20:49)
[2018-05-09] MEDS: CILOSTAZOL 100 MG TABLET PO SCH ×3 (00:57→20:48)
[2018-05-09] MEDS: INSULIN GLARGINE,HUM.REC.ANLOG 100 UNITS/ML VIAL SC SCH ×2 (00:58→21:01)
[2018-05-09 05:39] LABS: Anion Gap 12.2 mmol/L (6.8-13.8); BUN/Creatinine Ratio 19.4 (9.0-21.6); Bilirubin, Total 0.3 mg/dL (0.0-1.1); Ca. Corrected For Albumin 9.1 mg/dL (8.4-10.2); Calcium * 7.8 mg/dL (7.9-10.9); Carbon Dioxide 23.4 mmol/L (24-32.6); Estimated Creat Clear 28.7; Potassium 3.6 mmol/L (3.4-4.6); Total Protein 5.5 gm/dL (6.2-8.2)
[2018-05-09] MEDS ORDERED: NORMAL SALINE 500 ML IV PRN (07:25)
[2018-05-09] MEDS: ACETAMINOPHEN 500 MG TABLET PO PRN (08:10)
[2018-05-09] MEDS: ASPIRIN 81 MG TABLET.DR PO SCH (08:33)
[2018-05-09] MEDS: CLOPIDOGREL BISULFATE 75 MG TABLET PO SCH (08:34)
[2018-05-09] MEDS: CHOLECALCIFEROL 1,000 UNIT CAPSULE PO SCH (08:36)
[2018-05-09] MEDS: INSULIN ASPART 100 UNITS/ML VIAL SC SCH (08:40)
[2018-05-09] MEDS: METOPROLOL SUCCINATE 25 MG TABLET.SA PO SCH (09:08)
[2018-05-09] MEDS: HYDROCHLOROTHIAZIDE 12.5 MG CAPSULE PO SCH (09:08)
[2018-05-09] MEDS: NORMAL SALINE 1,000 ML IV PRN ×3 (09:13→22:49)
[2018-05-09 09:18] LABS: Hematocrit 29.1 % (42.0-52.0); Hemoglobin 9.4 gm/dL (13.5-18.0); Mean Cell Volume 91.5 fl (78-100); Mean Corpuscular Hemoglobin 29.6 pg (27-31); Mean Corpuscular Hgb Conc 32.3 g/dl (32-36); Mean Platelet Volume 9.4 fl (8-11.3); Neutrophil # 11.3 K/mm3 (1.3-6.0); Platelet Count 181 K/mm3 (150-450); Red Blood Count 3.18 M/mm3 (4.7-6.0); Red Cell Distribution Width 14.5 % (11.5-14.0); White Blood Count 13.8 K/mm3 (4.0-10.5)
[2018-05-09] MEDS: AZITHROMYCIN 500 MG in DEXTROSE 5 % IN WATER 250 ML IV SCH ×2 (10:11)
[2018-05-09] MEDS: CEFEPIME HCL 2 GM in DEXTROSE 5 % IN WATER 100 ML IV SCH ×2 (11:37)
--- NOTE | 2018-05-09 12:30 | PN ---
Subjective - Date and Time Seen Date: 05/09/18 Time: 12:10 Subjective Narrative: Pt evaluated at bedside. He is sitting up in bed eating his lunch. States that his appetite has improved. No longer having chills. Overall feels better. related that their son was in to visit last evening and did have some questions about surgical care. and son agree that he needs something done surgically, however they understand it is ultimately Mr. Brown's decision. He does seem more receptive to discussing surgery today, but does not completely commit to wanting it done. Objective - Review of Systems Respiratory: Reports: Shortness of Breath Musculoskeletal Complaints: Reports: Other - left foot pain Neurological: Reports: Numbness Skin: Reports: Other - left foot ulceration, redness - Vitals Vitals: Last Vital Signs Temp 37.2 C 05/09/18 10:30 Pulse 68 05/09/18 10:30 Resp 20 05/09/18 10:30 BP 104/40 05/09/18 10:30 Pulse Ox 93 05/09/18 10:30 - Abnormal Lab Findings Abnormal Lab Findings: Abnormal Lab Results 05/09/18 05/09/18 Range/Units 05:00 05:21 WBC 13.8 H (4.0-10.5) K/mm3 RBC 3.18 L (4.7-6.0) M/mm3 Hgb 9.4 L (13.5-18.0) gm/dL Hct 29.1 L (42.0-52.0) % RDW 14.5 H (11.5-14.0) % Immature Gran % (Auto) 0.80 H (0.001-0.429) % Immature Gran # (Auto) 0.11 H (0.000-0.0310) K/mm3 Neutrophils % 82.0 H (42-75.0) % Lymphocytes % 7.7 L (20-51) % Monocytes % 9.2 H (0.0-9) % Neutrophils # 11.3 H (1.3-6.0) K/mm3 Lymphocytes # 1.07 L (1.5-3.5) k/mm3 Monocytes # 1.3 H (0.0-1.0) k/mm3 Carbon Dioxide 23.4 L (24-32.6) mmol/L BUN 38 H (6-23) mg/dL Creatinine 1.96 H (0.4-1.4) mg/dL Est GFR (Non-Af Amer) 35 L (60-130) mL/min Random Glucose 120 H D (70-110) mg/dL Calcium 7.8 L (7.9-10.9) mg/dL AST 74 H (0-48) U/L Total Protein 5.5 L (6.2-8.2) gm/dL Albumin 2.0 L (3.4-5.0) gm/dl - Exam Exam Narrative: MRI reviewed - 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 Agree with report. Constitutional: Present: Alert, Oriented x3, Cooperative Extremity: Present: lower extremity edema Skin Exam: Present: other - Again identified are 3 ulcerations of the left foot, all essentially unchanged in appearance from yesterday. Erythema remains about the foot extending to the level of the ankle. Pain has reduced some. Still with foul smelling, purulent drainage from medial ulceration. Possible pathologic fracture of 1st metatarsal head as it does appear to be very mobile/loose when obtaining bone culture. Neurologic: Present: sensory deficit Appearance: Present: appropriate appearance Assessment/Plan - Problems/Diagnosis (1) Diabetic foot ulcer Problem: Chronic Qualifiers: Diabetic foot ulcer location: toe Diabetes mellitus type: type 2 Laterality: left Non-pressure ulcer stage: unspecified non-pressure ulcer stage Qualified Code(s): E11.621 - Type 2 diabetes mellitus with foot ulcer; L97.529 - Non-pressure chronic ulcer of other part of left foot with unspecified severity Narrative: New dressing of Aquacel Ag, dry gauze, ramon, and ROX bandage applied. Will continue with daily dressing changes at this time. (2) Cellulitis and abscess of foot Problem: Acute Narrative: Awaiting final culture results. Continue current ABX at this time. (3) Osteomyelitis Problem: Acute Narrative: Bone culture obtained today. Advised that on the chance we do not pursue surgery, we do want to be sure the patient is on an appropriate ABX to help clear his infection. MRI reviewed with pt/ at bedside. Discussed concern over gas formation in the bone and tissues and severity of gas forming infections. Again advised that these infections can become life-threatening. Again reviewed his options for treatment, to include continued local wound care, IV ABX, or surgery. Pt does have some questions regarding healing from the surgery and if just a toe amputation is all he would need or would he need more aggressive amputation. Advised that with the ulcerations between his 4th and 5th toes, he is at risk of developing similar infection in this area which may lead to needing amputation of these toes as well. At this point, the great toe and 1st metatarsal are the only bones showing concerns for infection on MRI, however would not dispute a TMA with other ulcerations on the foot. Discussed with pt and both a partial 1st ray amputation vs a TMA, including anesthesia, recovery, risks, and benefits. Cannot guarantee that he will not develop another infection as there are always risks of infection with any surgery, however his risk would be no greater than it is now with active infection in his foot. Pt does not commit to having surgery during this visit. states that their son may be in later today and they will discuss again as a family. Advised that if they have any other questions, I am happy to speak with them. Also advised that should they decide to proceed with surgery, would likely be this Monday afternoon. Would then only need a few weeks of ABX instead of 6-8. They will discuss as a family and we will revisit on my next rounds likely tomorrow.
--- NOTE | 2018-05-09 13:05 | PN ---
Subjective - Date and Time Seen Date: 05/09/18 Time: 12:53 Subjective Narrative: I've got a cough and my left foot hurt. I had a fever last night. Objective Objective Narrative: 88-year-old male admitted for left foot diabetic, left lower extremity cellulitis, osteomyelitis, and bronchopneumonia was evaluated at bedside and was found to be afebrile and in no acute distress. MRI of the patient's left lower extremity confirms osteomyelitis of the first metatarsal as well as cellulitis of the same area. Patient was evaluated by Hospital pediatric surgeon who recommends possible amputation of the left forefoot, the patient refused. Patient's clinical picture is demonstrating little improvement, he had several bouts of low-grade fever throughout the night and early this morning, acetaminophen was administered. He also presented with hypotension that required several IV boluses to maintain blood pressure, and has ongoing IV hydration. This morning's labs demonstrate worsening leukocytosis. Patient and his were explained that all the signs and symptoms are demonstrating ongoing infection due to the the osteomyelitis in the left foot, it was explained to them that the best course of action would be amputation as recommended by the wastewater design engineer. The family is deliberating on the decision. In the meantime the wastewater design engineer recommends a bone biopsy to be done at bedside. IV antibiotics were optimized Vanco and cefepime were added to the regimen, although blood and wound cultures show no growth after now. We will follow-up with biopsy results to optimize IV antibiotics and will await further recommendation from the hospital wastewater design engineer. - Review of Systems Generalized/Overall Review: Reports: Weakness, Chills, Fever EENTM: Reports: No Symptoms Reported Respiratory: Reports: Cough Cardiac: Reports: No Symptoms Reported Abdominal: Reports: No Symptoms Reported Genitourinary Symptoms: Reports: No Symptoms Reported Musculoskeletal Complaints: Reports: Joint Pain, Joint Swelling Neurological: Reports: No Symptoms Reported Skin: Reports: Lesions Endocrine: Reports: No Symptoms Reported - Patient called earlier she selected f or jury duty for June and July - Vitals Vitals: Last Vital Signs Temp 37.2 C 05/09/18 10:30 Pulse 68 05/09/18 10:30 Resp 20 05/09/18 10:30 BP 104/40 05/09/18 10:30 Pulse Ox 93 05/09/18 10:30 - Abnormal Lab Findings Abnormal Lab Findings: Abnormal Lab Results 05/09/18 05/09/18 Range/Units 05:00 05:21 WBC 13.8 H (4.0-10.5) K/mm3 RBC 3.18 L (4.7-6.0) M/mm3 Hgb 9.4 L (13.5-18.0) gm/dL Hct 29.1 L (42.0-52.0) % RDW 14.5 H (11.5-14.0) % Immature Gran % (Auto) 0.80 H (0.001-0.429) % Immature Gran # (Auto) 0.11 H (0.000-0.0310) K/mm3 Neutrophils % 82.0 H (42-75.0) % Lymphocytes % 7.7 L (20-51) % Monocytes % 9.2 H (0.0-9) % Neutrophils # 11.3 H (1.3-6.0) K/mm3 Lymphocytes # 1.07 L (1.5-3.5) k/mm3 Monocytes # 1.3 H (0.0-1.0) k/mm3 Carbon Dioxide 23.4 L (24-32.6) mmol/L BUN 38 H (6-23) mg/dL Creatinine 1.96 H (0.4-1.4) mg/dL Est GFR (Non-Af Amer) 35 L (60-130) mL/min Random Glucose 120 H D (70-110) mg/dL Calcium 7.8 L (7.9-10.9) mg/dL AST 74 H (0-48) U/L Total Protein 5.5 L (6.2-8.2) gm/dL Albumin 2.0 L (3.4-5.0) gm/dl - Exam Constitutional: Present: Alert, Oriented x3, Cooperative - And she was in excuse because she takes care of her, Well developed, Well nourished - G1 a look at this, No distress - renal, Elderly, Obese ENT Exam: Present: normal ENT inspection, pharynx normal, TMs normal, hard of hearing Neck: Present: non-tender, full range of motion, supple, normal inspection, trachea midline Breasts: Present: Exam deferred Respiratory: Present: chest non-tender, lungs clear, normal breath sounds, no respiratory distress, no accessory muscle use Cardiovascular/Chest: Present: normal peripheral pulses, regular rate, rhythm, no chest tenderness, no edema, no gallop, no JVD, no murmur, no rub Abdomen: Present: Normal bowel sounds, soft, nontender, nondistended, no rebound tenderness, no hepatospenomegaly, obese /Rectal: Present: Exam deferred Extremity: Present: normal range of motion, non-tender, normal inspection, no pedal edema, no calf tenderness, slow capillary refill, other - Necrotic ulcer on dorsal first metatarsal, foul-smelling draining abscess/ulcer on the base of first metatarsal. Skin Exam: Present: normal color, warm/dry, no cyanosis Lymphatic: Present: no adenopathy Neurologic: Present: school adjustment counselor II-XII nml as tested, normal cerebellar test, no motor/sensory deficits, alert, oriented x 3, sensory deficit Appearance: Present: appropriate appearance, appropriate insight, neat, no memory impairment Eye contact: Present: cooperative, good eye contact, normal speech Thoughts: Present: normal thought pattern, no apparent hallucination Assessment/Plan Plan Narrative: We will continue with IV hydration, IV antibiotics, antipyretics as needed. Consultation with dietitian was requested due to low protein levels. We will follow up with further recommendation from the hospital wastewater design engineer and wait for bone biopsy results. - Problems/Diagnosis (1) Diabetic foot ulcer Problem: Chronic Qualifiers: Diabetic foot ulcer location: toe Diabetes mellitus type: type 2 Laterality: left Non-pressure ulcer stage: unspecified non-pressure ulcer stage Qualified Code(s): E11.621 - Type 2 diabetes mellitus with foot ulcer; L97.529 - Non-pressure chronic ulcer of other part of left foot with unspecified severity (2) Cellulitis of left lower extremity Problem: Acute (3) Pneumonia Problem: Acute Qualifiers: Pneumonia type: due to unspecified organism Laterality: left Lung location: lower lobe of lung Qualified Code(s): J18.1 - Lobar pneumonia, unspecified organism (4) Moderate dehydration Problem: Acute (5) Diabetes 1.5, managed as type 2 Problem: Chronic (6) Osteomyelitis Problem: Acute Qualifiers: Osteomyelitis location: foot Laterality: left Narrative: We will continue IV antibiotics, possible amputation of left forefoot is been discussed with family.
[2018-05-10] MEDS: VANCOMYCIN HCL 1 GM in DEXTROSE 5 % IN WATER 250 ML IV SCH ×2 (02:03)
[2018-05-10] MEDS: ACETAMINOPHEN 500 MG TABLET PO PRN ×2 (04:21→17:55)
[2018-05-10 05:35] LABS: Hematocrit 28.6 % (42.0-52.0); Hemoglobin 9.3 gm/dL (13.5-18.0); Mean Cell Volume 90.8 fl (78-100); Mean Corpuscular Hemoglobin 29.5 pg (27-31); Mean Corpuscular Hgb Conc 32.5 g/dl (32-36); Mean Platelet Volume 9.3 fl (8-11.3); Neutrophil # 9.6 K/mm3 (1.3-6.0); Neutrophil % 82.1 % (42-75.0); Platelet Count 173 K/mm3 (150-450); Red Blood Count 3.15 M/mm3 (4.7-6.0); Red Cell Distribution Width 14.6 % (11.5-14.0); White Blood Count 11.7 K/mm3 (4.0-10.5)
[2018-05-10 05:54] LABS: Albumin * 1.8 gm/dl (3.4-5.0); Anion Gap 12.6 mmol/L (6.8-13.8); BUN/Creatinine Ratio 18.7 (9.0-21.6); Bilirubin, Total 0.3 mg/dL (0.0-1.1); Ca. Corrected For Albumin 9.1 mg/dL (8.4-10.2); Calcium * 7.7 mg/dL (7.9-10.9); Carbon Dioxide 22.3 mmol/L (24-32.6); Potassium 3.9 mmol/L (3.4-4.6); Total Protein 5.4 gm/dL (6.2-8.2)
[2018-05-10] MEDS: INSULIN LISPRO 100 UNITS/ML VIAL SC SCH ×4 (07:37→21:03)
[2018-05-10] MEDS: ASPIRIN 81 MG TABLET.DR PO SCH (08:34)
[2018-05-10] MEDS: CILOSTAZOL 100 MG TABLET PO SCH (08:35)
[2018-05-10] MEDS: CLOPIDOGREL BISULFATE 75 MG TABLET PO SCH (08:35)
[2018-05-10] MEDS: CHOLECALCIFEROL 1,000 UNIT CAPSULE PO SCH (08:35)
[2018-05-10] MEDS: AZITHROMYCIN 500 MG in DEXTROSE 5 % IN WATER 250 ML IV SCH ×2 (08:38)
[2018-05-10] MEDS: INSULIN ASPART 100 UNITS/ML VIAL SC SCH (08:51)
[2018-05-10] MEDS: DOCUSATE SODIUM 100 MG CAPSULE PO SCH ×2 (09:07)
--- NOTE | 2018-05-10 10:38 | PN ---
Subjective - Date and Time Seen Date: 05/10/18 Time: 10:25 Subjective Narrative: I no longer have fever or chills but still got a cough. Objective Objective Narrative: 88-year-old male admitted for left foot diabetic, left lower extremity cellulitis, osteomyelitis, and bronchopneumonia was evaluated at bedside and was found to be afebrile and in no acute distress. Patient and his family had a discussion with the environmental services supervisor concerning surgical intervention to address the osteomyelitis in his left foot. Possible transmetatarsal amputation was discussed and he told her that he would let her know today with a final decision was after discussing with his family. During my rounds this morning I had a lengthy discussion with the patient and his about risk and benefit of having or not having the surgery and the patient told me that after some thought he decided to proceed with the surgery. This procedure would most likely occur tomorrow, in the meantime we will continue with IV hydration and IV antibiotics. This morning's labs demonstrate an elevation of his liver enzymes, so after reviewing his list of medications a decision to stop azithromycin was taken due to its possible association with elevated liver enzymes. Clinically the patient is improving there has been no recurrence of fever and he denies chills and says that he feels better. His WBCs are in a downward trend normal range and kidney function has improved. Follow-up labs were ordered for the morning. Blood cultures demonstrated growth of gram-negative bacilli so we will keep him on the antibiotics that he is currently on which is sufficient to cover gram negatives. We will monitor him closely. - Review of Systems Generalized/Overall Review: Reports: Weakness EENTM: Reports: No Symptoms Reported Respiratory: Reports: Cough Cardiac: Reports: No Symptoms Reported Abdominal: Reports: No Symptoms Reported Genitourinary Symptoms: Reports: No Symptoms Reported Musculoskeletal Complaints: Reports: Joint Pain Neurological: Reports: No Symptoms Reported Skin: Reports: No Symptoms Reported Endocrine: Reports: No Symptoms Reported - Vitals Vitals: Last Vital Signs Temp 37.2 C 05/10/18 07:46 Pulse 73 05/10/18 07:46 Resp 25 H 05/10/18 07:46 BP 98/35 05/10/18 07:46 Pulse Ox 90 L 05/10/18 07:46 - Abnormal Lab Findings Abnormal Lab Findings: Abnormal Lab Results 05/10/18 05/10/18 Range/Units 05:23 05:23 WBC 11.7 H (4.0-10.5) K/mm3 RBC 3.15 L (4.7-6.0) M/mm3 Hgb 9.3 L (13.5-18.0) gm/dL Hct 28.6 L (42.0-52.0) % RDW 14.6 H (11.5-14.0) % Immature Gran % (Auto) 0.90 H (0.001-0.429) % Immature Gran # (Auto) 0.10 H (0.000-0.0310) K/mm3 Neutrophils % 82.1 H (42-75.0) % Lymphocytes % 7.4 L (20-51) % Neutrophils # 9.6 H (1.3-6.0) K/mm3 Lymphocytes # 0.86 L (1.5-3.5) k/mm3 Carbon Dioxide 22.3 L (24-32.6) mmol/L BUN 35 H (6-23) mg/dL Creatinine 1.87 H (0.4-1.4) mg/dL Est GFR (Non-Af Amer) 37 L (60-130) mL/min Random Glucose 164 H D (70-110) mg/dL Calcium 7.7 L (7.9-10.9) mg/dL AST 161 H (0-48) U/L ALT 68 H (19-67) U/L Total Protein 5.4 L (6.2-8.2) gm/dL Albumin 1.8 L (3.4-5.0) gm/dl - Exam Constitutional: Present: Alert, Oriented x3, Cooperative, Well developed, Well nourished, No distress, Elderly ENT Exam: Present: normal ENT inspection, pharynx normal, hard of hearing Neck: Present: non-tender, full range of motion, supple, normal inspection, trachea midline Breasts: Present: Exam deferred Respiratory: Present: chest non-tender, lungs clear, normal breath sounds, no respiratory distress, no accessory muscle use Cardiovascular/Chest: Present: normal peripheral pulses, regular rate, rhythm, no chest tenderness, no edema, no gallop, no JVD, no murmur Abdomen: Present: Normal bowel sounds, nontender, nondistended, no rebound tenderness, no hepatospenomegaly, no masses, obese /Rectal: Present: Exam deferred Extremity: Present: normal range of motion, no pedal edema, no calf tenderness, slow capillary refill, other - Left foot with necrotic ulcer on the dorsal first metatarsal and foul-smelling draining ulcer on the base of first metatarsal with erythema Skin Exam: Present: normal color, warm/dry, no cyanosis Lymphatic: Present: no adenopathy Neurologic: Present: radial router operator II-XII nml as tested, alert, normal mood/affect, oriented x 3 Appearance: Present: appropriate appearance, appropriate insight, neat, no memory impairment Eye contact: Present: cooperative, good eye contact, normal speech Thoughts: Present: normal thought pattern, no apparent hallucination Assessment/Plan Plan Narrative: We will continue with IV hydration, IV antibiotics, will also wait for bone biopsy results to optimize antibiotic therapy, and confirmed surgery with Dr. Gerber. Patient was also seen by Hospital dietitian for low protein levels and optimal glucose control, will follow up with her recommendations. - Problems/Diagnosis (1) Diabetic foot ulcer Problem: Chronic Qualifiers: Diabetic foot ulcer location: toe Diabetes mellitus type: type 2 Late rality: left Non-pressure ulcer stage: unspecified non-pressure ulcer stage Qualified Code(s): E11.621 - Type 2 diabetes mellitus with foot ulcer; L97.529 - Non-pressure chronic ulcer of other part of left foot with unspecified severity (2) Cellulitis of left lower extremity Problem: Acute (3) Pneumonia Problem: Acute Qualifiers: Pneumonia type: due to unspecified organism Laterality: left Lung location: lower lobe of lung Qualified Code(s): J18.1 - Lobar pneumonia, unspecified organism (4) Moderate dehydration Problem: Acute (5) Diabetes 1.5, managed as type 2 Problem: Chronic (6) Osteomyelitis Problem: Acute Qualifiers: Osteomyelitis location: foot Laterality: left (7) Hypoproteinemia Problem: Acute (8) Elevated liver enzymes Problem: Acute
[2018-05-10] MEDS: CEFEPIME HCL 2 GM in DEXTROSE 5 % IN WATER 100 ML IV SCH ×2 (11:14)
[2018-05-10] MEDS: NORMAL SALINE 1,000 ML IV PRN ×2 (11:14→19:51)
[2018-05-10] MEDS: guaiFENesin 100 MG/5 ML BTL PO PRN ×2 (11:57→17:52)
--- NOTE | 2018-05-10 12:43 | PN ---
Subjective - Date and Time Seen Date: 05/10/18 Time: 12:05 Subjective Narrative: Pt evaluated at bedside resting. States that he continues to feel better. He has discussed surgery again with his family and has thought about all treatment options and has elected to proceed with surgical care. States that he "wants whatever needs to be taken out be taken out." Objective - Review of Systems Respiratory: Reports: Cough, Shortness of Breath Cardiac: Reports: Edema Abdominal: Denies: Nausea, Vomiting, Diarrhea Neurological: Reports: Numbness Skin: Reports: Other - ulceration left foot, redness left foot - Vitals Vitals: Last Vital Signs Temp 37.2 C 05/10/18 07:46 Pulse 73 05/10/18 07:46 Resp 25 H 05/10/18 07:46 BP 98/35 05/10/18 07:46 Pulse Ox 90 L 05/10/18 07:46 - Abnormal Lab Findings Abnormal Lab Findings: Abnormal Lab Results 05/10/18 05/10/18 Range/Units 05:23 05:23 WBC 11.7 H (4.0-10.5) K/mm3 RBC 3.15 L (4.7-6.0) M/mm3 Hgb 9.3 L (13.5-18.0) gm/dL Hct 28.6 L (42.0-52.0) % RDW 14.6 H (11.5-14.0) % Immature Gran % (Auto) 0.90 H (0.001-0.429) % Immature Gran # (Auto) 0.10 H (0.000-0.0310) K/mm3 Neutrophils % 82.1 H (42-75.0) % Lymphocytes % 7.4 L (20-51) % Neutrophils # 9.6 H (1.3-6.0) K/mm3 Lymphocytes # 0.86 L (1.5-3.5) k/mm3 Carbon Dioxide 22.3 L (24-32.6) mmol/L BUN 35 H (6-23) mg/dL Creatinine 1.87 H (0.4-1.4) mg/dL Est GFR (Non-Af Amer) 37 L (60-130) mL/min Random Glucose 164 H D (70-110) mg/dL Calcium 7.7 L (7.9-10.9) mg/dL AST 161 H (0-48) U/L ALT 68 H (19-67) U/L Total Protein 5.4 L (6.2-8.2) gm/dL Albumin 1.8 L (3.4-5.0) gm/dl - Exam Constitutional: Present: Alert, Oriented x3, Cooperative Extremity: Present: lower extremity edema Skin Exam: Present: other - Again identified are 3 ulcerations of the left foot, all essentially unchanged in appearance. Erythema remains about the foot extending now only to the level of the midfoot. Pain has reduced some. Still with foul smelling, purulent drainage from medial ulceration. Significant maceration to 4th webspace from ulcerations to 4th and 5th toes. Malodor present. Neurologic: Present: sensory deficit Appearance: Present: appropriate appearance Eye contact: Present: cooperative Assessment/Plan - Problems/Diagnosis (1) Diabetic foot ulcer Problem: Chronic Qualifiers: Diabetic foot ulcer location: toe Diabetes mellitus type: type 2 Latera lity: left Non-pressure ulcer stage: unspecified non-pressure ulcer stage Qualified Code(s): E11.621 - Type 2 diabetes mellitus with foot ulcer; L97.529 - Non-pressure chronic ulcer of other part of left foot with unspecified severity Narrative: Dressing changed today. Keep CDI. (2) Cellulitis and abscess of foot Problem: Acute Narrative: Await bone culture results. Continue on current IV ABX at this time. Will be adjusted when culture results come available. (3) Osteomyelitis Problem: Acute Narrative: Reviewed treatment options again with pt/. Pt now in agreement with surgical care. He wishes to have anything that may be questionable removed, so he has decided on TMA of the left foot. Discussed all risks and benefits of the surgery once again, no guarantees given or implied. Pt wishes to proceed. Will plan to go to OR tomorrow afternoon. Consent to be obtained and signed for Transmetatarsal amputation of the left foot. He will be NPO after midight. All questions answered today. May call the office with any other questions or concerns.
[2018-05-10] MEDS: TAMSULOSIN HCL 0.4 MG CAP.SR.24H PO SCH (21:01)
[2018-05-10] MEDS: ROSUVASTATIN CALCIUM 20 MG TABLET PO SCH (21:01)
[2018-05-10] MEDS: INSULIN GLARGINE,HUM.REC.ANLOG 100 UNITS/ML VIAL SC SCH (21:02)
[2018-05-10] MEDS: ZOLPIDEM TARTRATE 10 MG TABLET PO SCH (22:03)
[2018-05-11] MEDS: VANCOMYCIN HCL 1 GM in DEXTROSE 5 % IN WATER 250 ML IV SCH ×2 (01:58)
[2018-05-11 05:25] LABS: Hemoglobin 9.2 gm/dL (13.5-18.0); Mean Cell Volume 91.8 fl (78-100); Mean Corpuscular Hemoglobin 29.1 pg (27-31); Mean Corpuscular Hgb Conc 31.7 g/dl (32-36); Mean Platelet Volume 9.4 fl (8-11.3); Neutrophil # 9.7 K/mm3 (1.3-6.0); Neutrophil % 79.2 % (42-75.0); Platelet Count 180 K/mm3 (150-450); Red Blood Count 3.16 M/mm3 (4.7-6.0); Red Cell Distribution Width 14.5 % (11.5-14.0); White Blood Count 12.2 K/mm3 (4.0-10.5)
[2018-05-11 05:33] LABS: Albumin * 1.7 gm/dl (3.4-5.0); Anion Gap 8.6 mmol/L (6.8-13.8); BUN/Creatinine Ratio 16.9 (9.0-21.6); Bilirubin, Total 0.3 mg/dL (0.0-1.1); Ca. Corrected For Albumin 9.7 mg/dL (8.4-10.2); Calcium * 8.2 mg/dL (7.9-10.9); Carbon Dioxide 25.5 mmol/L (24-32.6); Potassium 4.1 mmol/L (3.4-4.6); Total Protein 5.3 gm/dL (6.2-8.2)
[2018-05-11] MEDS: NORMAL SALINE 1,000 ML IV PRN ×3 (05:35→23:11)
[2018-05-11] MEDS ORDERED: BUPIVACAINE HCL 50 ML VIAL IJ ONE ×2 (06:00→12:55)
[2018-05-11] MEDS ORDERED: LIDOCAINE HCL 10 ML VIAL IJ ONE (06:00)
[2018-05-11] MEDS: INSULIN LISPRO 100 UNITS/ML VIAL SC SCH ×4 (07:07→20:56)
[2018-05-11] MEDS ORDERED: DEXTROSE 4 GM/TAB BTL PO STA (09:28)
[2018-05-11] MEDS: DOCUSATE SODIUM 100 MG CAPSULE PO SCH (10:00)
[2018-05-11] MEDS: HYDROCHLOROTHIAZIDE 12.5 MG CAPSULE PO SCH (10:00)
[2018-05-11] MEDS: INSULIN ASPART 100 UNITS/ML VIAL SC SCH (10:00)
[2018-05-11] MEDS: CHOLECALCIFEROL 1,000 UNIT CAPSULE PO SCH (10:00)
[2018-05-11] MEDS: METOPROLOL SUCCINATE 25 MG TABLET.SA PO SCH (10:00)
[2018-05-11] MEDS: MEROPENEM 1 GM in NORMAL SALINE 100 ML IV SCH ×2 (10:25→21:02)
--- NOTE | 2018-05-11 11:23 | ANES ---
Anesthesia Pre Procedure Eval Vitals/Labs: Last Vital Signs Temp 37.9 C 05/11/18 07:17 Pulse 70 05/11/18 10:00 Resp 20 05/11/18 07:17 BP 148/59 05/11/18 10:00 Pulse Ox 92 L 05/11/18 07:17 HOME MEDICATIONS Aspirin 81 mg PO DAILY 11/26/14 [Last Taken 03/30/18] Cholecalciferol (Vitamin D3) [Vitamin D3] 2,000 units PO DAILY 11/26/14 [Last Taken 03/30/18] Cilostazol [Pletal] 100 mg PO BID 11/26/14 [Last Taken 03/30/18] Insulin Aspart [Novolog] 10 units SC QAM 11/26/14 [Last Taken 03/30/18] Insulin Aspart [Novolog] 40 units SC .AT LUNCH 11/26/14 [Last Taken 03/29/18] Insulin Glargine,Hum.rec.anlog [Lantus] 60 units SC HS 11/26/14 [Last Taken 03/29/18] Rosuvastatin Calcium [Crestor] 20 mg PO HS 11/26/14 [Last Taken 03/29/18] Tamsulosin HCl [Flomax] 0.4 mg PO HS 11/26/14 [Last Taken 03/29/18] Zolpidem Tartrate 10 mg PO HS 11/26/14 [Last Taken 03/29/18] Clopidogrel Bisulfate [Plavix] 75 mg PO DAILY 03/30/18 [Last Taken 03/30/18] Furosemide 20 mg PO DAILY 03/30/18 [Last Taken 03/30/18] Metoprolol Rivas/Hydrochlorothiaz [Metoprolol ER-Hctz 25-12.5 mg] 25 mg PO DAILY 03/30/18 [Last Taken 03/30/18] Docusate Sodium [Colace] 100 mg PO BID cap 04/01/18 [Last Taken Unknown] Allergies/Adverse Reactions: Allergies Allergy/AdvReac Type Severity Reaction Status Date / Time Penicillins Allergy Severe Anaphylaxis Verified 05/07/18 17:19 - Planned Procedure Planned Procedure: DIABETIC FOOT ULCER,CELULITIS,FAIL OF OUTPT Medication List Reviewed:: Yes Allergies Verified: Yes Medical History (Last Reviewed 05/11/18 @ 11:19 by Jaspal Scott CRNA) Bleeding hemorrhoid CAD (coronary artery disease) CHF (congestive heart failure) Diabetes Diabetic neuropathy HTN (hypertension) High cholesterol PVD (peripheral vascular disease) Surgical History (Last Reviewed 05/11/18 @ 11:19 by Jaspal Scott CRNA) 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 Previous back surgery Total knee replacement status Family History (Last Reviewed 05/11/18 @ 11:19 by Jaspal Scott CRNA) Other No pertinent family history - Family Anesthesia History Family History:: no untoward family reactions to anesthesia, no familial bleeding tendencies, no family history of clotting disorders, no family history of premature - Airway/Neck/Teeth Teeth Condition: None Denture Type: Full- Upper & Lower Mallampatti Score: 4 Thyromental (T-M) distance: > 6 cm Mandibulo Hyoid distance: > 3 cm - Respiratory Respiratory: chest non-tender, rhonchi, wheezing - expritory Smoking Status: Former smoker - occasionally will take a puff Discussed smoking cessation including day of surgery: Yes - none today Sleep Apnea currently treated: No Sleep Apnea by current assessment: No - although heavy snoring on side. Discussed Risks/Treatment of MERVAT: Yes - Cardiovascular Patient History - Cardiac/Respiratory: Arrhythmias, CHF, Hypertension, Hyperlipidemia, Pneumonia - current, Peripheral Vascular Disease, Valvular Heart Disease Tolerates Activity: Poor Heart Sounds: S1 & S2, Regular - Anesthesia Assessment and Plan ASA Class: PS, IV Anesthesia Type Plan: MAC Planned difficult intubation/equipment available: No - do not anticipate intubation but standby.
--- NOTE | 2018-05-11 11:45 | PN ---
Subjective - Date and Time Seen Date: 05/11/18 Time: 11:31 Subjective Narrative: I'm thirsty, I wan't a drink Objective Objective Narrative: 88-year-old male admitted for left foot diabetic, left lower extremity cellulitis, osteomyelitis, and bronchopneumonia was evaluated at bedside and was found to be afebrile and in no acute distress. Patient has been placed on n.p.o. status and preparation for transmetatarsal amputation to be performed by Dr. Gerber [facility] loom cleaner this afternoon. He reports feeling better and great improvement in his cough, however patient was found to have wheezing on auscultation of his lungs so breathing treatments with DuoNeb and a chest x-ray will be evaluation of his pneumonia were ordered. He has been maintaining blood pressures and there has been no recurrence of fever. The only concern right now is rising liver enzymes, so hepatitis panel was ordered to rule out hepatitis and all medications associated with elevated liver enzymes were stopped, so acetaminophen and Crestor were suspended. Also discussion was held with the hospital pathologist who reported growth of a gram-negative bacilli anaerobe and organism, so IV antibiotics were optimized Vanco and cefepime were stopped and meropenem for coverage of gram-negative bacilli and anaerobic organism as well as gram positives was added. Follow-up labs were ordered for the morning. We will follow-up with him after the procedure and follow-up with chest x-ray and hepatitis panel results. - Review of Systems Generalized/Overall Review: Reports: Weakness. Denies: Chills, Fever EENTM: Reports: No Symptoms Reported Respiratory: Reports: No Symptoms Reported Cardiac: Reports: No Symptoms Reported Abdominal: Reports: No Symptoms Reported Genitourinary Symptoms: Reports: No Symptoms Reported Musculoskeletal Complaints: Reports: Joint Pain Neurological: Reports: No Symptoms Reported Skin: Reports: Lesions - Ulceration and erythema of left foot. Endocrine: Reports: No Symptoms Reported - Vitals Vitals: Last Vital Signs Temp 37.9 C 05/11/18 07:17 Pulse 70 05/11/18 10:00 Resp 20 05/11/18 07:17 BP 148/59 05/11/18 10:00 Pulse Ox 92 L 05/11/18 07:17 - Abnormal Lab Findings Abnormal Lab Findings: Abnormal Lab Results 05/11/18 05/11/18 Range/Units 05:00 05:00 WBC 12.2 H (4.0-10.5) K/mm3 RBC 3.16 L (4.7-6.0) M/mm3 Hgb 9.2 L (13.5-18.0) gm/dL Hct 29.0 L (42.0-52.0) % MCHC 31.7 L (32-36) g/dl RDW 14.5 H (11.5-14.0) % Immature Gran % (Auto) 0.90 H (0.001-0.429) % Immature Gran # (Auto) 0.11 H (0.000-0.0310) K/mm3 Neutrophils % 79.2 H (42-75.0) % Lymphocytes % 9.7 L (20-51) % Neutrophils # 9.7 H (1.3-6.0) K/mm3 Lymphocytes # 1.19 L (1.5-3.5) k/mm3 BUN 27 H (6-23) mg/dL Creatinine 1.60 H (0.4-1.4) mg/dL Est GFR (Non-Af Amer) 44 L (60-130) mL/min AST 282 H (0-48) U/L ALT 142 H (19-67) U/L Alkaline Phosphatase 182 H (50-170) U/L Total Protein 5.3 L (6.2-8.2) gm/dL Albumin 1.7 L (3.4-5.0) gm/dl - Exam Constitutional: Present: Alert, Oriented x3, Cooperative, Well developed, Well nourished, No distress, Elderly ENT Exam: Present: normal ENT inspection, pharynx normal, TMs normal, hard of hearing Neck: Present: non-tender, full range of motion, supple, normal inspection Breasts: Present: Exam deferred Respiratory: Present: chest non-tender, wheezing Cardiovascular/Chest: Present: normal peripheral pulses, regular rate, rhythm, n o chest tenderness, no edema, no gallop, no JVD, no murmur Abdomen: Present: Normal bowel sounds, soft, nontender, nondistended, no rebound tenderness, no hepatospenomegaly, no masses, obese /Rectal: Present: Exam deferred Extremity: Present: other - Left foot with erythema up to the midfoot with necrotic foul-smelling ulcer on the dorsal and base of the first metatarsal with drainage Skin Exam: Present: normal color, warm/dry, no cyanosis Lymphatic: Present: no adenopathy Neurologic: Present: radar technician II-XII nml as tested, normal cerebellar test, no motor/sensory deficits, alert, normal mood/affect, oriented x 3 Appearance: Present: appropriate appearance, appropriate insight, neat, no memory impairment Eye contact: Present: cooperative, good eye contact, normal speech Thoughts: Present: normal thought pattern, no apparent hallucination Assessment/Plan - Problems/Diagnosis (1) Diabetic foot ulcer Problem: Chronic Qualifiers: Diabetic foot ulcer location: toe Diabetes mellitus type: type 2 Laterality: left Non-pressure ulcer stage: unspecified non-pressure ulcer stage Qualified Code(s): E11.621 - Type 2 diabetes mellitus with foot ulcer; L97.529 - Non-pressure chronic ulcer of other part of left foot with unspecified severity (2) Cellulitis of left lower extremity Problem: Acute (3) Pneumonia Problem: Acute Qualifiers: Pneumonia type: due to unspecified organism Laterality: left Lung location: lower lobe of lung Qualified Code(s): J18.1 - Lobar pneumonia, unspecified organism (4) Moderate dehydration Problem: Acute (5) Diabetes 1.5, managed as type 2 Problem: Chronic (6) Osteomyelitis Problem: Acute Qualifiers: Osteomyelitis location: foot Laterality: left (7) Hypoproteinemia Problem: Acute (8) Elevated liver enzymes Problem: Acute (9) Wheezing on auscultation Problem: Acute Narrative: We will continue IV hydration and culture specific IV antibiotics. Patient will receive breathing treatments for his wheezing as well as oxygen therapy due to mildly oxygen saturation.. Chest x-ray has been ordered we will follow-up with results in the meantime patient was encouraged to do the spirometry as ordered to increase activity out of bed because he has been bedridden for a number of days and has not been motivated to move as much as would like. We will follow- up with the patient after the procedure.
[2018-05-11] MEDS ORDERED: LIDOCAINE HCL 50 ML VIAL IJ ONE (12:55)
[2018-05-11] MEDS ORDERED: DEXTROSE 5%-LACTATED RINGERS 1,000 ML IV PRN (13:10)
--- NOTE | 2018-05-11 14:30 | ANES ---
Post Anesthesia Discharge - Transfer of Care Transfer of Care handoff given to nurse: Yes - Anesthesia Post Op Note Anesthesia Post Op Note: Care transferred to Med-surgical supply assistant
--- NOTE | 2018-05-11 14:30 | ANES ---
Post Anesthesia Assessment - Vital Signs Vitals: Last Vital Signs Temp 36.2 C 05/11/18 14:28 Pulse 73 05/11/18 14:28 Resp 20 05/11/18 14:28 BP 123/58 05/11/18 14:28 Pulse Ox 94 05/11/18 14:28 Airway Patency: Normal - Mental Status Level Of Consciousness: Drowsy - Pain Level Pain Score: 0 - N/V Assessment Nausea/Vomiting Presence: None Dehydration:: No
[2018-05-11] MEDS: guaiFENesin 100 MG/5 ML BTL PO PRN (17:52)
[2018-05-11] MEDS: HYDROcodone/ACETAMINOPHEN 1 EACH TABLET PO PRN (20:52)
[2018-05-11] MEDS: TAMSULOSIN HCL 0.4 MG CAP.SR.24H PO SCH (20:53)
[2018-05-11] MEDS: INSULIN GLARGINE,HUM.REC.ANLOG 100 UNITS/ML VIAL SC SCH (20:58)
[2018-05-11] MEDS: ZOLPIDEM TARTRATE 10 MG TABLET PO SCH (20:58)
[2018-05-12] MEDS: HYDROcodone/ACETAMINOPHEN 1 EACH TABLET PO PRN ×3 (01:04→21:15)
[2018-05-12 06:06] LABS: Hemoglobin 9.6 gm/dL (13.5-18.0); Mean Cell Volume 92.3 fl (78-100); Mean Corpuscular Hemoglobin 29.5 pg (27-31); Mean Platelet Volume 9.2 fl (8-11.3); Neutrophil # 8.3 K/mm3 (1.3-6.0); Neutrophil % 74.8 % (42-75.0); Platelet Count 202 K/mm3 (150-450); Red Blood Count 3.25 M/mm3 (4.7-6.0); Red Cell Distribution Width 14.8 % (11.5-14.0); White Blood Count 11.1 K/mm3 (4.0-10.5)
[2018-05-12 06:20] LABS: Albumin * 1.7 gm/dl (3.4-5.0); Anion Gap 10.2 mmol/L (6.8-13.8); BUN/Creatinine Ratio 15.6 (9.0-21.6); Bilirubin, Total 0.4 mg/dL (0.0-1.1); Ca. Corrected For Albumin 9.3 mg/dL (8.4-10.2); Calcium * 7.8 mg/dL (7.9-10.9); Carbon Dioxide 25.3 mmol/L (24-32.6); Potassium 4.5 mmol/L (3.4-4.6); Total Protein 5.6 gm/dL (6.2-8.2)
[2018-05-12] MEDS: INSULIN LISPRO 100 UNITS/ML VIAL SC SCH ×4 (07:04→21:14)
[2018-05-12] MEDS: DOCUSATE SODIUM 100 MG CAPSULE PO SCH (09:53)
[2018-05-12] MEDS: METOPROLOL SUCCINATE 25 MG TABLET.SA PO SCH (09:53)
[2018-05-12] MEDS: CHOLECALCIFEROL 1,000 UNIT CAPSULE PO SCH (09:54)
[2018-05-12] MEDS: HYDROCHLOROTHIAZIDE 12.5 MG CAPSULE PO SCH (09:54)
[2018-05-12] MEDS: INSULIN ASPART 100 UNITS/ML VIAL SC SCH (09:54)
[2018-05-12] MEDS: MEROPENEM 1 GM in NORMAL SALINE 100 ML IV SCH ×2 (10:01→21:03)
--- NOTE | 2018-05-12 10:13 | PN ---
Subjective - Date and Time Seen Date: 05/12/18 Time: 10:12 Subjective Narrative: Pt evaluated at bedside resting. States he is feeling well following surgery yesterday. Still a little tired, denies any pain in the left foot. Denies any N/V/F/C. Dressing has been kept CDI. has questions on how much his foot can be down/dangling through the day as that is how the patient prefers to sit. Objective - Review of Systems Generalized/Overall Review: Reports: Fatigue. Denies: Chills, Fever Respiratory: Reports: Cough Abdominal: Denies: Nausea, Vomiting Neurological: Reports: Numbness Skin: Reports: Other - Incision left foot - Vitals Vitals: Last Vital Signs Temp 36.8 C 05/12/18 09:56 Pulse 65 05/12/18 09:56 Resp 18 05/12/18 09:56 BP 136/52 05/12/18 09:56 Pulse Ox 100 05/12/18 09:56 - Abnormal Lab Findings Abnormal Lab Findings: Abnormal Lab Results 05/12/18 05/12/18 Range/Units 06:00 06:00 WBC 11.1 H (4.0-10.5) K/mm3 RBC 3.25 L (4.7-6.0) M/mm3 Hgb 9.6 L (13.5-18.0) gm/dL Hct 30.0 L (42.0-52.0) % RDW 14.8 H (11.5-14.0) % Immature Gran % (Auto) 1.00 H (0.001-0.429) % Immature Gran # (Auto) 0.11 H (0.000-0.0310) K/mm3 Lymphocytes % 12.6 L (20-51) % Monocytes % 9.8 H (0.0-9) % Neutrophils # 8.3 H (1.3-6.0) K/mm3 Lymphocytes # 1.39 L (1.5-3.5) k/mm3 Monocytes # 1.1 H (0.0-1.0) k/mm3 BUN 24 H (6-23) mg/dL Creatinine 1.54 H (0.4-1.4) mg/dL Est GFR (Non-Af Amer) 46 L (60-130) mL/min Calcium 7.8 L (7.9-10.9) mg/dL AST 296 H (0-48) U/L ALT 177 H (19-67) U/L Alkaline Phosphatase 294 H (50-170) U/L Total Protein 5.6 L (6.2-8.2) gm/dL Albumin 1.7 L (3.4-5.0) gm/dl - Exam Constitutional: Present: Alert, Oriented x3, Cooperative Extremity: Present: lower extremity edema Skin Exam: Present: other - Dressing to left foot CDI with moderate bloody dr metz following surgery. Incision to distal left foot following TMA well approximated with sutures intact. There is some mild sharon-incisional erythema, otherwise skin is pink and intact. CRFT is brisk to the amputation stump. Skin warm to touch. Neurologic: Present: sensory deficit Appearance: Present: appropriate appearance Eye contact: Present: cooperative, good eye contact Assessment/Plan - Problems/Diagnosis (1) Diabetic foot ulcer Problem: Chronic Qualifiers: Qualified Code(s): E11.621 - Type 2 diabetes mellitus with foot ulcer; L97.529 - Non-pressure chronic ulcer of other part of left foot with unspecified severity Narrative: Excised at time of surgery. (2) Cellulitis and abscess of foot Problem: Acute Narrative: Bone culture results pending. Will continue current ABX. Plan to adjust when final culture results available (3) Osteomyelitis Problem: Acute Narrative: Pt progressing well following TMA. New DSD applied to left foot. To be kept CDI. Will plan to change again tomorrow. Pt to keep as much weight off of this foot as possible at this time. Ok to apply weight to heel for transfers only. Pending appearance tomorrow, will bring over a CAM boot so he may begin more weightbearing. Plan for PT eval Monday morning for gait/walker training to help reduce pressure on this foot. Ok for patient to dangle his leg when sitting as he does have some vascular compromise and this will help to increase circulation to his foot. If he begins to have any burning, aching, or throbbing while foot is dependent, he is to elevate to reduce swelling. Ok to resume anticoagulants.
--- NOTE | 2018-05-12 10:34 | PN ---
Subjective - Date and Time Seen Date: 05/12/18 Time: 10:33 Subjective Narrative: Patient NAD. Afebrile. had TMT amputation left foot yesterday. Objective - Review of Systems Generalized/Overall Review: Denies: Chills, Fever EENTM: Denies: Blurred Vision Respiratory: Denies: Cough, Shortness of Breath Cardiac: Denies: Chest Pain, Edema, Palpitations Abdominal: Denies: Nausea, Vomiting Genitourinary Symptoms: Denies: Urgency, Frequency Musculoskeletal Complaints: Reports: Joint Pain - Vitals Vitals: Last Vital Signs Temp 36.8 C 05/12/18 09:56 Pulse 65 05/12/18 09:56 Resp 18 05/12/18 09:56 BP 136/52 05/12/18 09:56 Pulse Ox 100 05/12/18 09:56 - Abnormal Lab Findings Abnormal Lab Findings: Abnormal Lab Results 05/12/18 05/12/18 Range/Units 06:00 06:00 WBC 11.1 H (4.0-10.5) K/mm3 RBC 3.25 L (4.7-6.0) M/mm3 Hgb 9.6 L (13.5-18.0) gm/dL Hct 30.0 L (42.0-52.0) % RDW 14.8 H (11.5-14.0) % Immature Gran % (Auto) 1.00 H (0.001-0.429) % Immature Gran # (Auto) 0.11 H (0.000-0.0310) K/mm3 Lymphocytes % 12.6 L (20-51) % Monocytes % 9.8 H (0.0-9) % Neutrophils # 8.3 H (1.3-6.0) K/mm3 Lymphocytes # 1.39 L (1.5-3.5) k/mm3 Monocytes # 1.1 H (0.0-1.0) k/mm3 BUN 24 H (6-23) mg/dL Creatinine 1.54 H (0.4-1.4) mg/dL Est GFR (Non-Af Amer) 46 L (60-130) mL/min Calcium 7.8 L (7.9-10.9) mg/dL AST 296 H (0-48) U/L ALT 177 H (19-67) U/L Alkaline Phosphatase 294 H (50-170) U/L Total Protein 5.6 L (6.2-8.2) gm/dL Albumin 1.7 L (3.4-5.0) gm/dl - Exam Constitutional: Present: Alert, Oriented x3, Cooperative, Elderly Neck: Present: supple Abdomen: Present: Normal bowel sounds, soft, nontender, obese Extremity: Present: no calf tenderness, other - dry dressing left foot Assessment/Plan - Problems/Diagnosis (1) Osteomyelitis Problem: Acute Narrative: s/p Transmetatarsal amputation , left foot. for PT. (2) Pneumonia Problem: Acute Qualifiers: Pneumonia type: due to unspecified organism Laterality: left Lung location: lower lobe of lung Qualified Code(s): J18.1 - Lobar pneumonia, unspecified organism (3) Cellulitis Problem: Acute Qualifiers: Site of cellulitis: extremity Site of cellulitis of extremity: lower extremity Laterality: left Qualified Code(s): L03.116 - Cellulitis of left lower limb (4) PVD (peripheral vascular disease) Problem: Acute (5) Diabetic foot ulcer Problem: Chronic Qualifiers: Diabetic foot ulcer location: toe Diabetes mellitus type: type 2 Laterality: left Non-pressure ulcer stage: unspecified non-pressure ulcer stage Qualified Code(s): 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
[2018-05-12] MEDS: CLOPIDOGREL BISULFATE 75 MG TABLET PO SCH (10:51)
[2018-05-12] MEDS: CILOSTAZOL 100 MG TABLET PO SCH ×2 (10:52→21:08)
[2018-05-12] MEDS: ASPIRIN 81 MG TABLET.DR PO SCH (10:52)
[2018-05-12 12:22] LABS: Hepatitis C Antibody NON-REACTIVE (NON-REACTIVE); Hepatitis Panel Confirmation DNR
[2018-05-12 15:37] LABS: Hepatitis A IgM Antibody NON-REACTIVE (NON-REACTIVE); Hepatitis B Surface Antigen NON-REACTIVE (NON-REACTIVE)
[2018-05-12] MEDS: TAMSULOSIN HCL 0.4 MG CAP.SR.24H PO SCH (21:07)
[2018-05-12] MEDS: INSULIN GLARGINE,HUM.REC.ANLOG 100 UNITS/ML VIAL SC SCH (21:09)
[2018-05-12] MEDS: ZOLPIDEM TARTRATE 10 MG TABLET PO SCH (21:31)
[2018-05-12] MEDS: ALBUTEROL SULFATE/IPRATROPIUM 3 ML NEBU IH PRN (21:59)
[2018-05-13] MEDS: ALBUTEROL SULFATE/IPRATROPIUM 3 ML NEBU IH PRN ×2 (04:14→15:16)
[2018-05-13] MEDS: INSULIN LISPRO 100 UNITS/ML VIAL SC SCH ×4 (07:28→21:29)
[2018-05-13 10:01] LABS: Anion Gap 7.8 mmol/L (6.8-13.8); BUN/Creatinine Ratio 16.8 (9.0-21.6); Calcium * 8.5 mg/dL (7.9-10.9); Estimated Creat Clear 37.7; Potassium 4.8 mmol/L (3.4-4.6)
[2018-05-13] MEDS: DOCUSATE SODIUM 100 MG CAPSULE PO SCH (10:15)
[2018-05-13] MEDS: METOPROLOL SUCCINATE 25 MG TABLET.SA PO SCH (10:15)
[2018-05-13] MEDS: CLOPIDOGREL BISULFATE 75 MG TABLET PO SCH (10:15)
[2018-05-13] MEDS: HYDROCHLOROTHIAZIDE 12.5 MG CAPSULE PO SCH (10:16)
[2018-05-13] MEDS: MEROPENEM 1 GM in NORMAL SALINE 100 ML IV SCH ×2 (10:16→21:33)
[2018-05-13] MEDS: ASPIRIN 81 MG TABLET.DR PO SCH (10:16)
[2018-05-13] MEDS: CILOSTAZOL 100 MG TABLET PO SCH ×2 (10:16→21:28)
[2018-05-13] MEDS: CHOLECALCIFEROL 1,000 UNIT CAPSULE PO SCH (10:16)
[2018-05-13 10:17] LABS: Hemoglobin 9.9 gm/dL (13.5-18.0); Mean Cell Volume 90.9 fl (78-100); Mean Corpuscular Hgb Conc 31.9 g/dl (32-36); Mean Platelet Volume 9.3 fl (8-11.3); Neutrophil # 11.2 K/mm3 (1.3-6.0); Neutrophil % 84.3 % (42-75.0); Platelet Count 256 K/mm3 (150-450); Red Blood Count 3.41 M/mm3 (4.7-6.0); Red Cell Distribution Width 14.8 % (11.5-14.0); White Blood Count 13.3 K/mm3 (4.0-10.5)
[2018-05-13] MEDS: INSULIN ASPART 100 UNITS/ML VIAL SC SCH (10:24)
--- NOTE | 2018-05-13 10:27 | PN ---
Subjective - Date and Time Seen Date: 05/13/18 Time: 10:27 Subjective Narrative: Patient afebrile today . had Tmax of 38 yesterday likely due to postop reactive changes. Objective - Review of Systems Generalized/Overall Review: Reports: Weakness. Denies: Chills, Fever Respiratory: Denies: Cough, Shortness of Breath Cardiac: Reports: Edema. Denies: Chest Pain, Palpitations Abdominal: Denies: Nausea, Vomiting Genitourinary Symptoms: Denies: Urgency, Frequency Musculoskeletal Complaints: Reports: Joint Pain - Vitals Vitals: Last Vital Signs Temp 37.3 C 05/13/18 05:46 Pulse 84 05/13/18 05:46 Resp 22 H 05/13/18 05:46 BP 164/71 H 05/13/18 05:46 Pulse Ox 92 L 05/13/18 05:46 - Abnormal Lab Findings Abnormal Lab Findings: Abnormal Lab Results 05/13/18 05/13/18 Range/Units 09:49 09:49 WBC 13.3 H (4.0-10.5) K/mm3 RBC 3.41 L (4.7-6.0) M/mm3 Hgb 9.9 L (13.5-18.0) gm/dL Hct 31.0 L (42.0-52.0) % MCHC 31.9 L (32-36) g/dl RDW 14.8 H (11.5-14.0) % Immature Gran % (Auto) 1.20 H (0.001-0.429) % Immature Gran # (Auto) 0.16 H (0.000-0.0310) K/mm3 Neutrophils % 84.3 H (42-75.0) % Lymphocytes % 6.0 L (20-51) % Neutrophils # 11.2 H (1.3-6.0) K/mm3 Lymphocytes # 0.80 L (1.5-3.5) k/mm3 Sodium 130 L (132-142) mmol/L Potassium 4.8 H (3.4-4.6) mmol/L BUN 25 H (6-23) mg/dL Creatinine 1.49 H (0.4-1.4) mg/dL Est GFR (Non-Af Amer) 48 L (60-130) mL/min Random Glucose 154 H D (70-110) mg/dL - Exam Constitutional: Present: Alert, Oriented x3, Cooperative ENT Exam: Present: hearing grossly normal Neck: Present: supple Respiratory: Present: decreased breath sounds, No rales, No wheezing Cardiovascular/Chest: Present: regular rate, rhythm, no JVD, no murmur Abdomen: Present: Normal bowel sounds, soft, nondistended, obese Extremity: Present: no calf tenderness, other - positive TMT amputation, left foot Assessment/Plan - Problems/Diagnosis (1) Bacteremia Problem: Acute Narrative: lab called positive anaerobic bacteria from blood and wound- already on meropen em which will cover anaerobes and WBC is going down. will continue with IV antibiotics. (2) Pneumonia Problem: Acute Qualifiers: Pneumonia type: due to unspecified organism Laterality: left Lung location: lower lobe of lung Qualified Code(s): J18.1 - Lobar pneumonia, unspecified organism (3) Osteomyelitis Problem: Acute Qualifiers: Osteomyelitis type: unspecified type Osteomyelitis location: foot Laterality: left Qualified Code(s): M86.9 - Osteomyelitis, unspecified Narrative: continue with IV antibiotics (4) Cellulitis Problem: Acute Qualifiers: Site of cellulitis: extremity Site of cellulitis of extremity: lower extremity Laterality: left Qualified Code(s): L03.116 - Cellulitis of left lower limb (5) PVD (peripheral vascular disease) Problem: Acute (6) Diabetic foot ulcer Problem: Chronic Qualifiers: Diabetic foot ulcer location: toe Diabetes mellitus type: type 2 Laterality: left Non-pressure ulcer stage: unspecified non-pressure ulcer stage Qualified Code(s): E11.621 - Type 2 diabetes mellitus with foot ulcer; L97.529 - Non-pressure chronic ulcer of other part of left foot with unspecified severity (7) Uncontrolled diabetes mellitus Problem: Chronic Qualifiers: Diabetes mellitus type: type 2 Glycemic state: with hyperglycemia Qualified Code(s): E11.65 - Type 2 diabetes mellitus with hyperglycemia
--- NOTE | 2018-05-13 14:32 | PN ---
Subjective - Date and Time Seen Date: 05/13/18 Time: 14:31 Subjective Narrative: Pt evaluated at bedside resting. Denies any pain in the left foot. States that he is more SOB today and has been coughing a lot, making rest difficult. Nurse relates he has started having diarrhea as well. Dressing has been kept CDI. Objective - Review of Systems Generalized/Overall Review: Reports: Weakness, Malaise Respiratory: Reports: Cough, Shortness of Breath Cardiac: Reports: Edema Abdominal: Reports: Diarrhea Neurological: Reports: Numbness Skin: Reports: Other - incision left foot - Vitals Vitals: Last Vital Signs Temp 36.6 C 05/13/18 10:47 Pulse 75 05/13/18 10:47 Resp 18 05/13/18 10:47 BP 133/46 05/13/18 10:47 Pulse Ox 95 05/13/18 10:47 - Abnormal Lab Findings Abnormal Lab Findings: Abnormal Lab Results 05/13/18 05/13/18 Range/Units 09:49 09:49 WBC 13.3 H (4.0-10.5) K/mm3 RBC 3.41 L (4.7-6.0) M/mm3 Hgb 9.9 L (13.5-18.0) gm/dL Hct 31.0 L (42.0-52.0) % MCHC 31.9 L (32-36) g/dl RDW 14.8 H (11.5-14.0) % Immature Gran % (Auto) 1.20 H (0.001-0.429) % Immature Gran # (Auto) 0.16 H (0.000-0.0310) K/mm3 Neutrophils % 84.3 H (42-75.0) % Lymphocytes % 6.0 L (20-51) % Neutrophils # 11.2 H (1.3-6.0) K/mm3 Lymphocytes # 0.80 L (1.5-3.5) k/mm3 Sodium 130 L (132-142) mmol/L Potassium 4.8 H (3.4-4.6) mmol/L BUN 25 H (6-23) mg/dL Creatinine 1.49 H (0.4-1.4) mg/dL Est GFR (Non-Af Amer) 48 L (60-130) mL/min Random Glucose 154 H D (70-110) mg/dL - Exam Constitutional: Present: Alert, Oriented x3, Cooperative Extremity: Present: lower extremity edema Skin Exam: Present: other - Dressing to left foot CDI with minimal bloody drainage following surgery. Incision to distal left foot following TMA well approximated with sutures intact. There remains some mild sharon-incisional erythema, otherwise skin is pink and intact. CRFT is brisk to the amputation stump. Skin warm to touch. Neurologic: Present: sensory deficit Eye contact: Present: cooperative Assessment/Plan - Problems/Diagnosis (1) Diabetic foot ulcer Problem: Chronic Qualifiers: Diabetic foot ulcer location: toe Diabetes mellitus type: type 2 Laterality: left Non-pressure ulcer stage: unspecified non-pressure ulcer stage Qualified Code(s): E11.621 - Type 2 diabetes mellitus with foot ulcer; L97.529 - Non-pressure chronic ulcer of other part of left foot with unspecified severity Narrative: Excised at time of surgery (2) Cellulitis and abscess of foot Problem: Acute Narrative: Final cultures remain pending. Will continue current ABX, await final culture results. (3) Osteomyelitis Problem: Acute Qualifiers: Osteomyelitis type: unspecified type Osteomyelitis location: foot Laterality: left Qualified Code(s): M86.9 - Osteomyelitis, unspecified Narrative: Pt continues to progress well following TMA. New DSD applied to left foot. To be kept CDI. Will plan to change again tomorrow. Pt to keep as much weight off of this foot as possible at this time. Ok to apply weight to heel for transfers only. Will place in CAM boot on left foot for transfers. Plan for PT eval tomorrow morning for gait/walker training to help reduce pressure on this foot.
[2018-05-13] MEDS: guaiFENesin 100 MG/5 ML BTL PO PRN (15:38)
[2018-05-13] MEDS ORDERED: BISACODYL 5 MG TABLET.DR PO ONE (19:04)
[2018-05-13] MEDS ORDERED: BISACODYL 10 MG SUPP.RECT RC ONE (19:04)
[2018-05-13] MEDS: TAMSULOSIN HCL 0.4 MG CAP.SR.24H PO SCH (21:27)
[2018-05-13] MEDS: ZOLPIDEM TARTRATE 10 MG TABLET PO SCH (21:27)
[2018-05-13] MEDS: HYDROcodone/ACETAMINOPHEN 1 EACH TABLET PO PRN (21:27)
[2018-05-13] MEDS: INSULIN GLARGINE,HUM.REC.ANLOG 100 UNITS/ML VIAL SC SCH (21:28)
[2018-05-14 06:38] LABS: Hematocrit 27.9 % (42.0-52.0); Mean Corpuscular Hgb Conc 32.3 g/dl (32-36); Mean Platelet Volume 9.3 fl (8-11.3); Neutrophil % 77.1 % (42-75.0); Platelet Count 284 K/mm3 (150-450); Red Cell Distribution Width 14.7 % (11.5-14.0); White Blood Count 11.7 K/mm3 (4.0-10.5)
[2018-05-14 06:47] LABS: Anion Gap 9.4 mmol/L (6.8-13.8); Calcium * 8.2 mg/dL (7.9-10.9); Carbon Dioxide 26.9 mmol/L (24-32.6); Estimated Creat Clear 38.3; Potassium 4.3 mmol/L (3.4-4.6)
[2018-05-14] MEDS: INSULIN LISPRO 100 UNITS/ML VIAL SC SCH ×4 (07:12→20:11)
[2018-05-14 07:14] LABS: CRP 21.6 mg/dL (0.0-0.9)
[2018-05-14] MEDS: HYDROCHLOROTHIAZIDE 12.5 MG CAPSULE PO SCH (08:27)
[2018-05-14] MEDS: ASPIRIN 81 MG TABLET.DR PO SCH (08:27)
[2018-05-14] MEDS: DOCUSATE SODIUM 100 MG CAPSULE PO SCH (08:27)
[2018-05-14] MEDS: INSULIN ASPART 100 UNITS/ML VIAL SC SCH (08:28)
[2018-05-14] MEDS: METOPROLOL SUCCINATE 25 MG TABLET.SA PO SCH (08:28)
[2018-05-14] MEDS: CLOPIDOGREL BISULFATE 75 MG TABLET PO SCH (08:28)
[2018-05-14] MEDS: CHOLECALCIFEROL 1,000 UNIT CAPSULE PO SCH (08:28)
[2018-05-14] MEDS: CILOSTAZOL 100 MG TABLET PO SCH ×2 (08:28→20:16)
[2018-05-14] MEDS: MEROPENEM 1 GM in NORMAL SALINE 100 ML IV SCH ×2 (08:31→21:05)
[2018-05-14] MEDS: POLYETHYLENE GLYCOL 3350 119 GM BTL PO SCH (08:34)
[2018-05-14 10:29] LABS: Prothrombin Time (Patient) 11.9 Seconds (9.0-11.0)
[2018-05-14 10:34] LABS: INR 1.19 INR (0.90-1.10)
--- NOTE | 2018-05-14 12:07 | PN ---
Subjective - Date and Time Seen Date: 05/14/18 Time: 11:48 Subjective Narrative: I feel better, but still have a cough. Objective Objective Narrative: 88-year-old male admitted for s/p Left transmetatarsal amputation dayb #3 for left foot diabetic, left lower extremity cellulitis, osteomyelitis, and bronchopneumonia was evaluated at bedside and was found to be afebrile and in no acute distress. Patient tolerated surgery with no adverse events. Dual platelet anticoagulation was resumed as well as his routine meds. This morning's labs demonstrate a decrease in his WBCs and improvement in his renal function, however liver enzymes are still increasing. Hepatitis panel ordered 2 days ago was completely negative for hepatitis and medication list was revised in any medication associated with increasing liver enzymes are stopped. Liver ultrasound was ordered to look into the matter further. Patient continues on IV antibiotic for coverage of gram-negative organisms and anaerobes. Final culture results are pending, once we have them discharge planning will take place. Patient reports feeling better and wishes to go home, however will wait for evaluation by physical therapy and recommendation for further therapy to improve balance and transfer. - Review of Systems Generalized/Overall Review: Denies: Chills, Fever, Fatigue EENTM: Reports: No Symptoms Reported Respiratory: Reports: Cough Cardiac: Reports: No Symptoms Reported Abdominal: Reports: No Symptoms Reported Genitourinary Symptoms: Reports: No Symptoms Reported Musculoskeletal Complaints: Reports: No Symptoms Reported Neurological: Reports: No Symptoms Reported Skin: Reports: No Symptoms Reported Endocrine: Reports: No Symptoms Reported - Vitals Vitals: Last Vital Signs Temp 37.1 C 05/14/18 09:00 Pulse 66 05/14/18 09:00 Resp 20 05/14/18 09:00 BP 139/55 05/14/18 09:00 Pulse Ox 95 05/14/18 09:00 - Abnormal Lab Findings Abnormal Lab Findings: Abnormal Lab Results 05/14/18 05/14/18 05/14/18 Range/Units 06:15 06:15 06:15 WBC 11.7 H (4.0-10.5) K/mm3 RBC 3.10 L (4.7-6.0) M/mm3 Hgb 9.0 L (13.5-18.0) gm/dL Hct 27.9 L (42.0-52.0) % RDW 14.7 H (11.5-14.0) % Immature Gran % (Auto) 1.70 H (0.001-0.429) % Immature Gran # (Auto) 0.20 H (0.000-0.0310) K/mm3 Neutrophils % 77.1 H (42-75.0) % Lymphocytes % 9.5 L (20-51) % Neutrophils # 9.0 H (1.3-6.0) K/mm3 Lymphocytes # 1.12 L (1.5-3.5) k/mm3 ESR 117 H (0-10) mm/hr PT (9.0-11.0) Seconds INR (Anticoag Therapy) (0.90-1.10) INR BUN 28 H (6-23) mg/dL Creatinine 1.47 H (0.4-1.4) mg/dL Est GFR (Non-Af Amer) 48 L (60-130) mL/min C-Reactive Prot, Quant 21.6 H (0.0-0.9) mg/dL 05/14/18 Range/Units 06:15 WBC (4.0-10.5) K/mm3 RBC (4.7-6.0) M/mm3 Hgb (13.5-18.0) gm/dL Hct (42.0-52.0) % RDW (11.5-14.0) % Immature Gran % (Auto) (0.001-0.429) % Immature Gran # (Auto) (0.000-0.0310) K/mm3 Neutrophils % (42-75.0) % Lymphocytes % (20-51) % Neutrophils # (1.3-6.0) K/mm3 Lymphocytes # (1.5-3.5) k/mm3 ESR (0-10) mm/hr PT 11.9 H (9.0-11.0) Seconds INR (Anticoag Therapy) 1.19 H (0.90-1.10) INR BUN (6-23) mg/dL Creatinine (0.4-1.4) mg/dL Est GFR (Non-Af Amer) (60-130) mL/min C-Reactive Prot, Quant (0.0-0.9) mg/dL - Exam Constitutional: Present: Alert, Oriented x3, Cooperative, Well developed, Well nourished, No distress ENT Exam: Present: normal ENT inspection, pharynx normal, TMs normal, hard of hearing Neck: Present: non-tender, full range of motion, supple, normal inspection, trachea midline Breasts: Present: Exam deferred Respiratory: Present: crackles - Crackles on right lung base Cardiovascular/Chest: Present: normal peripheral pulses, regular rate, rhythm, no chest tenderness, no edema, no gallop, no JVD, no murmur Abdomen: Present: Normal bowel sounds, soft, nontender, nondistended, obese /Rectal: Present: Exam deferred Extremity: Present: normal range of motion, non-tender, normal inspection, no pedal edema, no calf tenderness, normal capillary refill - Left lower extremity with transmetatarsal amputation with surgical wound covered by clean dry bandage Skin Exam: Present: normal color, warm/dry, no cyanosis Lymphatic: Present: no adenopathy Neurologic: Present: fund director II-XII nml as tested, normal cerebellar test, no motor/sensory deficits, alert, oriented x 3 Appearance: Present: appropriate appearance, appropriate insight, neat, no memory impairment Eye contact: Present: cooperative, good eye contact, normal speech Thoughts: Present: normal thought pattern, no apparent hallucination Assessment/Plan Plan Narrative: We will continue with IV antibiotics and follow-up with liver ultrasound results to evaluate for cause of elevated liver enzymes. Will also follow-up with final culture results to determine posthospitalization antibiotic therapy. Patient will undergo in hospital physical therapy evaluation we will follow-up with recommendations from the physical therapist for discharge planning. Morning labs has been ordered for evaluation. - Problems/Diagnosis (1) Diabetic foot ulcer Problem: Chronic Qualifiers: Diabetic foot ulcer location: toe Diabetes mellitus type: type 2 Laterali ty: left Non-pressure ulcer stage: unspecified non-pressure ulcer stage Qualified Code(s): E11.621 - Type 2 diabetes mellitus with foot ulcer; L97.529 - Non-pressure chronic ulcer of other part of left foot with unspecified severity (2) Cellulitis of left lower extremity Problem: Acute (3) Pneumonia Problem: Acute Qualifiers: Pneumonia type: due to unspecified organism Laterality: left Lung location: lower lobe of lung Qualified Code(s): J18.1 - Lobar pneumonia, unspecified organism (4) Moderate dehydration Problem: Acute (5) Diabetes 1.5, managed as type 2 Problem: Chronic (6) Osteomyelitis Problem: Acute Qualifiers: Osteomyelitis location: foot Laterality: left (7) Hypoproteinemia Problem: Acute (8) Elevated liver enzymes Problem: Acute (9) Wheezing on auscultation Problem: Resolved (10) Status post transmetatarsal amputation of left foot Problem: Acute
--- NOTE | 2018-05-14 13:04 | PN ---
Subjective - Date and Time Seen Date: 05/14/18 Time: 11:45 Subjective Narrative: Pt evaluated at bedside resting. Denies any pain in the left foot. States that he is feeling much better today than yesterday. Is not coughing near as much. Did spike a fever last evening, but afebrile now. Dressing has been kept CDI. Objective - Review of Systems Generalized/Overall Review: Reports: Fatigue Respiratory: Reports: Cough - improved Abdominal: Denies: Nausea, Vomiting Neurological: Reports: Numbness Skin: Reports: Other - incision left foot - Vitals Vitals: Last Vital Signs Temp 37.1 C 05/14/18 09:00 Pulse 66 05/14/18 09:00 Resp 20 05/14/18 09:00 BP 139/55 05/14/18 09:00 Pulse Ox 95 05/14/18 09:00 - Abnormal Lab Findings Abnormal Lab Findings: Abnormal Lab Results 05/14/18 05/14/18 05/14/18 Range/Units 06:15 06:15 06:15 WBC 11.7 H (4.0-10.5) K/mm3 RBC 3.10 L (4.7-6.0) M/mm3 Hgb 9.0 L (13.5-18.0) gm/dL Hct 27.9 L (42.0-52.0) % RDW 14.7 H (11.5-14.0) % Immature Gran % (Auto) 1.70 H (0.001-0.429) % Immature Gran # (Auto) 0.20 H (0.000-0.0310) K/mm3 Neutrophils % 77.1 H (42-75.0) % Lymphocytes % 9.5 L (20-51) % Neutrophils # 9.0 H (1.3-6.0) K/mm3 Lymphocytes # 1.12 L (1.5-3.5) k/mm3 ESR 117 H (0-10) mm/hr PT (9.0-11.0) Seconds INR (Anticoag Therapy) (0.90-1.10) INR BUN 28 H (6-23) mg/dL Creatinine 1.47 H (0.4-1.4) mg/dL Est GFR (Non-Af Amer) 48 L (60-130) mL/min C-Reactive Prot, Quant 21.6 H (0.0-0.9) mg/dL 05/14/18 Range/Units 06:15 WBC (4.0-10.5) K/mm3 RBC (4.7-6.0) M/mm3 Hgb (13.5-18.0) gm/dL Hct (42.0-52.0) % RDW (11.5-14.0) % Immature Gran % (Auto) (0.001-0.429) % Immature Gran # (Auto) (0.000-0.0310) K/mm3 Neutrophils % (42-75.0) % Lymphocytes % (20-51) % Neutrophils # (1.3-6.0) K/mm3 Lymphocytes # (1.5-3.5) k/mm3 ESR (0-10) mm/hr PT 11.9 H (9.0-11.0) Seconds INR (Anticoag Therapy) 1.19 H (0.90-1.10) INR BUN (6-23) mg/dL Creatinine (0.4-1.4) mg/dL Est GFR (Non-Af Amer) (60-130) mL/min C-Reactive Prot, Quant (0.0-0.9) mg/dL - Exam Constitutional: Present: Alert, Oriented x3, Cooperative Extremity: Present: lower extremity edema Skin Exam: Present: other - Dressing to left foot CDI with minimal bloody drainage from the medial aspect of the incision encompassing the amputation stump. Incision remains well approximated with sutures intact. Skin remains pink, with slight sharon-incisional erythema present that continues to improve daily. CRFT brisk to stump. Neurologic: Present: sensory deficit Appearance: Present: appropriate appearance Assessment/Plan - Problems/Diagnosis (1) Diabetic foot ulcer Problem: Chronic Qualifiers: Diabetic foot ulcer location: toe Diabetes mellitus type: type 2 Laterality: left Non-pressure ulcer stage: unspecified non-pressure ulcer stage Qualified Code(s): E11.621 - Type 2 diabetes mellitus with foot ulcer; L97.529 - Non-pressure chronic ulcer of other part of left foot with unspecified severity Narrative: Excised at time of surgery (2) Cellulitis and abscess of foot Problem: Acute Narrative: Continue current ABX, pending final culture results. (3) Osteomyelitis Problem: Acute Qualifiers: Osteomyelitis type: unspecified type Osteomyelitis location: foot Laterality: left Qualified Code(s): M86.9 - Osteomyelitis, unspecified Narrative: Pt continues to progress well following TMA. Incision of amputation stump healing well. New DSD applied to left foot. To be kept CDI. Will plan to change again tomorrow. Pt to keep as much weight off of this foot as possible. Ok to apply weight to heel for transfers/PT. Fitted today for CAM boot on left foot for transfers and PT. PT eval this morning for gait/walker training to help reduce pressure on this foot.
[2018-05-14] MEDS: HYDROcodone/ACETAMINOPHEN 1 EACH TABLET PO PRN (20:09)
[2018-05-14] MEDS: ZOLPIDEM TARTRATE 10 MG TABLET PO SCH (20:09)
[2018-05-14] MEDS: TAMSULOSIN HCL 0.4 MG CAP.SR.24H PO SCH (20:10)
[2018-05-14] MEDS: INSULIN GLARGINE,HUM.REC.ANLOG 100 UNITS/ML VIAL SC SCH (20:14)
[2018-05-15 05:36] LABS: Hematocrit 28.8 % (42.0-52.0); Hemoglobin 9.3 gm/dL (13.5-18.0); Mean Cell Volume 90.3 fl (78-100); Mean Corpuscular Hemoglobin 29.2 pg (27-31); Mean Corpuscular Hgb Conc 32.3 g/dl (32-36); Mean Platelet Volume 9.1 fl (8-11.3); Neutrophil # 7.8 K/mm3 (1.3-6.0); Neutrophil % 74.5 % (42-75.0); Platelet Count 334 K/mm3 (150-450); Red Blood Count 3.19 M/mm3 (4.7-6.0); Red Cell Distribution Width 14.6 % (11.5-14.0); White Blood Count 10.5 K/mm3 (4.0-10.5)
[2018-05-15 05:50] LABS: Albumin * 1.7 gm/dl (3.4-5.0); Bilirubin, Total 0.4 mg/dL (0.0-1.1); Ca. Corrected For Albumin 9.9 mg/dL (8.4-10.2); Calcium * 8.4 mg/dL (7.9-10.9); Carbon Dioxide 28.6 mmol/L (24-32.6); Potassium 4.6 mmol/L (3.4-4.6); Total Protein 5.7 gm/dL (6.2-8.2)
[2018-05-15] MEDS: INSULIN LISPRO 100 UNITS/ML VIAL SC SCH ×2 (06:29→11:49)
[2018-05-15] MEDS: HYDROcodone/ACETAMINOPHEN 1 EACH TABLET PO PRN (07:41)
[2018-05-15] MEDS: ASPIRIN 81 MG TABLET.DR PO SCH (08:55)
[2018-05-15] MEDS: POLYETHYLENE GLYCOL 3350 119 GM BTL PO SCH (08:55)
[2018-05-15] MEDS: DOCUSATE SODIUM 100 MG CAPSULE PO SCH (08:55)
[2018-05-15] MEDS: CHOLECALCIFEROL 1,000 UNIT CAPSULE PO SCH (08:55)
[2018-05-15] MEDS: CLOPIDOGREL BISULFATE 75 MG TABLET PO SCH (08:55)
[2018-05-15] MEDS: METOPROLOL SUCCINATE 25 MG TABLET.SA PO SCH (08:55)
[2018-05-15] MEDS: HYDROCHLOROTHIAZIDE 12.5 MG CAPSULE PO SCH (08:56)
[2018-05-15] MEDS: CILOSTAZOL 100 MG TABLET PO SCH (08:56)
[2018-05-15] MEDS: INSULIN ASPART 100 UNITS/ML VIAL SC SCH (08:56)
[2018-05-15] MEDS: MEROPENEM 1 GM in NORMAL SALINE 100 ML IV SCH (09:05)
--- NOTE | 2018-05-15 09:56 | DS ---
(1) Diabetic foot ulcer Problem: Chronic Qualifiers: Diabetic foot ulcer location: toe Diabetes mellitus type: type 2 Laterality: left Non-pressure ulcer stage: unspecified non-pressure ulcer stage Qualified Code(s): E11.621 - Type 2 diabetes mellitus with foot ulcer; L97.529 - Non-pressure chronic ulcer of other part of left foot with unspecified severity (2) Cellulitis of left lower extremity Problem: Acute (3) Pneumonia Problem: Resolved Qualifiers: Pneumonia type: due to unspecified organism Laterality: left Lung location: lower lobe of lung Qualified Code(s): J18.1 - Lobar pneumonia, unspecified organism (4) Moderate dehydration Problem: Resolved (5) Diabetes 1.5, managed as type 2 Problem: Chronic (6) Osteomyelitis Problem: Resolved Qualifiers: Osteomyelitis location: foot Laterality: left (7) Hypoproteinemia Problem: Acute (8) Elevated liver enzymes Problem: Acute (9) Wheezing on auscultation Problem: Resolved (10) Status post transmetatarsal amputation of left foot Problem: Acute Description of Stay: Thank you very much 88-year-old male admitted for left osteomyelitis left lower extremity cellulitis, left-sided bronchopneumonia was evaluated at bedside and was found to be afebrile and in no acute distress. Patient has shown great clinical improvement especially after his transmetatarsal amputation.. He was evaluated by the training developer who put a Cam boot on his left lower extremity and order physical therapy which the patient tolerated well, transfer and balance as well as gait with weightbearing on the heel of the involved foot were addressed with the patient. Final blood culture and wound culture results are still pending for the identification of the possible anaerobe that is growing, laboratory technical specialist reports that it might be up to a week until we have the final results. Therefore anesthesia has been consulted for PICC line insertion and will prepare patient for discharge with at home health services for nursing and physical therapy. He will continue receiving IV antibiotics through the PICC line for an additional 10 days until we get final culture results. Patient will also continue with at-home physical therapy to improve ambulation and transfers as necessary. Today's lab results demonstrate WBCs have decreased to normal levels and liver enzymes are also on a downward trend. It has become apparent per the literature that the patient suffered a liver insult due to his initial hypo-tension when he arrived to the hospital secondary to sepsis but with IV hydration kidneys and liver are responding very well. There has not been recurrence of fever more than 24 hours and patient presents with stable vitals. Patient's cough has improved and he reports that he is breathing is better than when he got here. Therefore discharge planning will be initiated. Px in confined to the home due to loss of balance, deconditioning, and impaired ambulation secondary to TMA. He will require home health with nursing for administration of IV antibiotics, dressing changes, and drug monitoring. Px will phyllis needed at home PT to improve ambulation and balance. Procedures Performed: see notes below - Left transmetatarsal amputation. Results and Findings: Pending Mircobiology Results 05/09/18 12:30 Foot - Left Wound Culture - Preliminary Ruling Out Anaerobe Lab Pending Results 05/07/18 15:56: WBC 16.5 H, RBC 3.69 L, Hgb 11.0 L, Hct 34.1 L, MCV 92.4, MCH 29.8, MCHC 32.3, RDW 14.1 H, Plt Count 191, MPV 8.8, Neutrophils % (Manual) 79 H, Band Neuts % (Manual) 3 H, Lymphocytes % (Manual) 5 L, Monocytes % (Manual) 10 H, Immature Granulocytes 2 H, Neutrophils # (Manual) 13.0 H, Lymphocytes # (Manual) 0.8 L, Monocytes # (Manual) 1.7 H, Atypic/Reactive Lymphs 1 05/07/18 15:56: ESR 114 H 05/07/18 15:56: Sodium 132, Plasma Sodium 132, Potassium 4.5 D, Chloride 98, Carbon Dioxide 26.3, Anion Gap 12.2, BUN 41 H, Creatinine 2.13 H, Est GFR (Non- Af Amer) 31 L, BUN/Creatinine Ratio 19.2, Random Glucose 115 H, Calcium 8.1, Calcium Adj for Albumin 9.0, Total Bilirubin 0.5, AST 43, ALT 23, Alkaline Phosphatase 90, C-Reactive Prot, Quant Less than 0.2, Total Protein 6.4, Albumin 2.5 L 05/07/18 15:56: Lactic Acid, Venous 1.6 05/08/18 05:10: WBC 12.7 H D, RBC 3.45 L, Hgb 10.2 L, Hct 31.7 L, MCV 91.9, MCH 29.6, MCHC 32.2, RDW 14.2 H, Plt Count 184, MPV 8.8, Immature Gran % (Auto) 0.80 H, Immature Gran # (Auto) 0.10 H, Neutrophils % 81.8 H, Lymphocytes % 7.7 L, Monocytes % 9.2 H, Eosinophils % 0.3, Basophils % 0.2, Nucleated RBC % 0.0, Neutrophils # 10.4 H, Lymphocytes # 0.98 L, Monocytes # 1.2 H, Eosinophils # 0.0, Absolute Basophils 0.0 05/08/18 05:10: Sodium 134, Plasma Sodium 134, Potassium 4.0, Chloride 100, Carbon Dioxide 26.2, Anion Gap 11.8, BUN 40 H, Creatinine 2.14 H, Est GFR (Non- Af Amer) 31 L, BUN/Creatinine Ratio 18.7, Random Glucose 84, Calcium 8.1 05/09/18 05:00: WBC 13.8 H, RBC 3.18 L, Hgb 9.4 L, Hct 29.1 L, MCV 91.5, MCH 29.6, MCHC 32.3, RDW 14.5 H, Plt Count 181, MPV 9.4, Immature Gran % (Auto) 0.80 H, Immature Gran # (Auto) 0.11 H, Neutrophils % 82.0 H, Lymphocytes % 7.7 L, Monocytes % 9.2 H, Eosinophils % 0.1, Basophils % 0.2, Nucleated RBC % 0.0, Ne utrophils # 11.3 H, Lymphocytes # 1.07 L, Monocytes # 1.3 H, Eosinophils # 0.0, Absolute Basophils 0.0 05/09/18 05:21: Sodium 134, Plasma Sodium 134, Potassium 3.6, Chloride 102, Carbon Dioxide 23.4 L, Anion Gap 12.2, BUN 38 H, Creatinine 1.96 H, Est GFR (Non-Af Amer) 35 L, BUN/Creatinine Ratio 19.4, Random Glucose 120 H D, Calcium 7.8 L, Calcium Adj for Albumin 9.1, Total Bilirubin 0.3, AST 74 H, ALT 36, Alkaline Phosphatase 105, Total Protein 5.5 L, Albumin 2.0 L 05/10/18 05:23: WBC 11.7 H, RBC 3.15 L, Hgb 9.3 L, Hct 28.6 L, MCV 90.8, MCH 29. 5, MCHC 32.5, RDW 14.6 H, Plt Count 173, MPV 9.3, Immature Gran % (Auto) 0.90 H, Immature Gran # (Auto) 0.10 H, Neutrophils % 82.1 H, Lymphocytes % 7.4 L, Monocytes % 8.5, Eosinophils % 0.9, Basophils % 0.2, Nucleated RBC % 0.0, Neutrophils # 9.6 H, Lymphocytes # 0.86 L, Monocytes # 1.0, Eosinophils # 0.1, Absolute Basophils 0.0 05/10/18 05:23: Sodium 134, Plasma Sodium 135, Potassium 3.9, Chloride 103, Carbon Dioxide 22.3 L, Anion Gap 12.6, BUN 35 H, Creatinine 1.87 H, Est GFR (Non-Af Amer) 37 L, BUN/Creatinine Ratio 18.7, Random Glucose 164 H D, Calcium 7.7 L, Calcium Adj for Albumin 9.1, Total Bilirubin 0.3, AST 161 H, ALT 68 H, Alkaline Phosphatase 134, Total Protein 5.4 L, Albumin 1.8 L 05/11/18 05:00: WBC 12.2 H, RBC 3.16 L, Hgb 9.2 L, Hct 29.0 L, MCV 91.8, MCH 29.1, MCHC 31.7 L, RDW 14.5 H, Plt Count 180, MPV 9.4, Immature Gran % (Auto) 0.90 H, Immature Gran # (Auto) 0.11 H, Neutrophils % 79.2 H, Lymphocytes % 9.7 L, Monocytes % 8.0, Eosinophils % 2.0, Basophils % 0.2, Nucleated RBC % 0.0, Neutrophils # 9.7 H, Lymphocytes # 1.19 L, Monocytes # 1.0, Eosinophils # 0.2, Absolute Basophils 0.0 05/11/18 05:00: Sodium 135, Plasma Sodium 135, Potassium 4.1, Chloride 105, Carbon Dioxide 25.5, Anion Gap 8.6, BUN 27 H, Creatinine 1.60 H, Est GFR (Non-Af Amer) 44 L, BUN/Creatinine Ratio 16.9, Random Glucose 86 D, Calcium 8.2, Calcium Adj for Albumin 9.7, Total Bilirubin 0.3, AST 282 H, ALT 142 H, Alkaline Phosphatase 182 H, Total Protein 5.3 L, Albumin 1.7 L 05/11/18 05:00: Hepatitis A IgM Ab Non-reactive, Hep Bs Antigen Non-reactive, Hep B Core IgM Ab Non-reactive, Hepatitis C Antibody Non-reactive, Hep C Ab Signal/Cutoff 0.01, Hepatitis Interpret Dnr 05/11/18 14:30: Pathology Specimen Spec to path 05/12/18 06:00: WBC 11.1 H, RBC 3.25 L, Hgb 9.6 L, Hct 30.0 L, MCV 92.3, MCH 29.5, MCHC 32.0, RDW 14.8 H, Plt Count 202, MPV 9.2, Immature Gran % (Auto) 1.00 H, Immature Gran # (Auto) 0.11 H, Neutrophils % 74.8, Lymphocytes % 12.6 L, Monocytes % 9.8 H, Eosinophils % 1.5, Basophils % 0.3, Nucleated RBC % 0.0, Neutrophils # 8.3 H, Lymphocytes # 1.39 L, Monocytes # 1.1 H, Eosinophils # 0.2, Absolute Basophils 0.0 05/12/18 06:00: Sodium 136, Plasma Sodium 136, Potassium 4.5, Chloride 105, Carbon Dioxide 25.3, Anion Gap 10.2, BUN 24 H, Creatinine 1.54 H, Est GFR (Non- Af Amer) 46 L, BUN/Creatinine Ratio 15.6, Random Glucose 74, Calcium 7.8 L, Calcium Adj for Albumin 9.3, Total Bilirubin 0.4, AST 296 H, ALT 177 H, Alkaline Phosphatase 294 H, Total Protein 5.6 L, Albumin 1.7 L 05/13/18 09:49: WBC 13.3 H, RBC 3.41 L, Hgb 9.9 L, Hct 31.0 L, MCV 90.9, MCH 29.0, MCHC 31.9 L, RDW 14.8 H, Plt Count 256, MPV 9.3, Immature Gran % (Auto) 1.20 H, Immature Gran # (Auto) 0.16 H, Neutrophils % 84.3 H, Lymphocytes % 6.0 L, Monocytes % 6.7, Eosinophils % 1.4, Basophils % 0.4, Nucleated RBC % 0.0, Neutrophils # 11.2 H, Lymphocytes # 0.80 L, Monocytes # 0.9, Eosinophils # 0.2, Absolute Basophils 0.1 05/13/18 09:49: Sodium 130 L, Plasma Sodium 131, Potassium 4.8 H, Chloride 99, Carbon Dioxide 28.0, Anion Gap 7.8, BUN 25 H, Creatinine 1.49 H, Est GFR (Non-Af Amer) 48 L, BUN/Creatinine Ratio 16.8, Random Glucose 154 H D, Calcium 8.5 05/14/18 06:15: WBC 11.7 H, RBC 3.10 L, Hgb 9.0 L, Hct 27.9 L, MCV 90.0, MCH 29.0, MCHC 32.3, RDW 14.7 H, Plt Count 284, MPV 9.3, Immature Gran % (Auto) 1.70 H, Immature Gran # (Auto) 0.20 H, Neutrophils % 77.1 H, Lymphocytes % 9.5 L, Monocytes % 8.4, Eosinophils % 2.9, Basophils % 0.4, Nucleated RBC % 0.0, Neutrophils # 9.0 H, Lymphocytes # 1.12 L, Monocytes # 1.0, Eosinophils # 0.3, Absolute Basophils 0.1 05/14/18 06:15: ESR 117 H 05/14/18 06:15: Sodium 132, Plasma Sodium 132, Potassium 4.3, Chloride 100, Carbon Dioxide 26.9, Anion Gap 9.4, BUN 28 H, Creatinine 1.47 H, Est GFR (Non-Af Amer) 48 L, BUN/Creatinine Ratio 19.0, Random Glucose 93 D, Calcium 8.2, C- Reactive Prot, Quant 21.6 H 05/14/18 06:15: PT 11.9 H, INR (Anticoag Therapy) 1.19 H 05/15/18 05:32: WBC 10.5, RBC 3.19 L, Hgb 9.3 L, Hct 28.8 L, MCV 90.3, MCH 29.2, MCHC 32.3, RDW 14.6 H, Plt Count 334, MPV 9.1, Immature Gran % (Auto) 1.80 H, Immature Gran # (Auto) 0.19 H, Neutrophils % 74.5, Lymphocytes % 11.6 L, Monocytes % 8.9, Eosinophils % 2.9, Basophils % 0.3, Nucleated RBC % 0.0, Neutrophils # 7.8 H, Lymphocytes # 1.21 L, Monocytes # 0.9, Eosinophils # 0.3, Absolute Basophils 0.0 05/15/18 05:32: Sodium 134, Plasma Sodium 134, Potassium 4.6, Chloride 100, Carbon Dioxide 28.6, Anion Gap 10.0, BUN 29 H, Creatinine 1.38, Est GFR (Non-Af Amer) 52 L, BUN/Creatinine Ratio 21.0, Random Glucose 75, Calcium 8.4, Calcium Adj for Albumin 9.9, Total Bilirubin 0.4, AST 191 H, ALT 147 H, Alkaline Phosphatase 292 H, Total Protein 5.7 L, Albumin 1.7 L Discharge Location: Home Disposition: Home Health Service Home Health Agency: [facility] Condition: Good Face to Face Encounter completed per [facility] Guidelines: Yes Discharge Activity: Partial-Weight bearing Discharge Diet: Consistent carbs Referrals: Skylar Traylor MD [Primary Care Provider] - Additional Patient Instructions (free text): [facility] at discharge- nursing, bath aid, and physical therapy. Please call report to [phone] and fax discharge orders and medications -Please make TCM appointment unless prison discharge. Thank you! Geri @ [phone]. -Dressing change daily with dry gauze, Kerlix, ramon, & ROX bandage to left foot. Prescriptions (Any new or edited meds): 0.9 % Sodium Chloride [Normal Saline Flush] 10 ml IJ BID #10 disp.syrin Meropenem [Merrem] 1 gm IV Q12H 10 Days #20 vial oxyCODONE HCL/ACETAMINOPHEN [Percocet 5-325 mg Tablet] 1 each PO Q8H PRN #30 tablet PRN Reason: Pain Complete Home Medications List: Complete Home Medication List: Aspirin 81 mg PO DAILY 11/26/14 Cholecalciferol (Vitamin D3) [Vitamin D3] 2,000 units PO DAILY 11/26/14 Cilostazol [Pletal] 100 mg PO BID 11/26/14 Insulin Aspart [Novolog] 10 units SC QAM 11/26/14 Insulin Aspart [Novolog] 40 units SC .AT LUNCH 11/26/14 Insulin Glargine,Hum.rec.anlog [Lantus] 60 units SC HS 11/26/14 Rosuvastatin Calcium [Crestor] 20 mg PO HS 11/26/14 Tamsulosin HCl [Flomax] 0.4 mg PO HS 11/26/14 Zolpidem Tartrate 10 mg PO HS 11/26/14 Clopidogrel Bisulfate [Plavix] 75 mg PO DAILY 03/30/18 Furosemide 20 mg PO DAILY 03/30/18 Metoprolol Rivas/Hydrochlorothiaz [Metoprolol ER-Hctz 25-12.5 mg] 25 mg PO DAILY 03/30/18 Docusate Sodium [Colace] 100 mg PO BID cap 04/01/18 0.9 % Sodium Chloride [Normal Saline Flush] 10 ml IJ BID #10 disp.syrin 05/15/18 Meropenem [Merrem] 1 gm IV Q12H 10 Days #20 vial 05/15/18 oxyCODONE HCL/ACETAMINOPHEN [Percocet 5-325 mg Tablet] 1 each PO Q8H PRN #30 tablet 05/15/18
--- NOTE | 2018-05-15 12:26 | PN ---
Subjective - Date and Time Seen Date: 05/15/18 Time: 12:00 Subjective Narrative: Pt evaluated sitting up in bedside chair. Denies any pain in the left foot. States that he feels good today and is ready to go home. Remains afebrile. Dressing has been kept CDI. Plans for d/c home today with PICC line for IV ABX and home health care. Objective - Review of Systems Generalized/Overall Review: Reports: Weakness - improving. Denies: Chills, Fever, Malaise Cardiac: Reports: Edema Abdominal: Denies: Nausea, Vomiting Neurological: Reports: Numbness Skin: Reports: Other - incision left foot - Vitals Vitals: Last Vital Signs Temp 36.4 C 05/15/18 09:00 Pulse 80 05/15/18 09:00 Resp 16 05/15/18 09:00 BP 105/41 05/15/18 09:00 Pulse Ox 97 05/15/18 09:00 - Abnormal Lab Findings Abnormal Lab Findings: Abnormal Lab Results 05/15/18 05/15/18 Range/Units 05:32 05:32 RBC 3.19 L (4.7-6.0) M/mm3 Hgb 9.3 L (13.5-18.0) gm/dL Hct 28.8 L (42.0-52.0) % RDW 14.6 H (11.5-14.0) % Immature Gran % (Auto) 1.80 H (0.001-0.429) % Immature Gran # (Auto) 0.19 H (0.000-0.0310) K/mm3 Lymphocytes % 11.6 L (20-51) % Neutrophils # 7.8 H (1.3-6.0) K/mm3 Lymphocytes # 1.21 L (1.5-3.5) k/mm3 BUN 29 H (6-23) mg/dL Est GFR (Non-Af Amer) 52 L (60-130) mL/min AST 191 H (0-48) U/L ALT 147 H (19-67) U/L Alkaline Phosphatase 292 H (50-170) U/L Total Protein 5.7 L (6.2-8.2) gm/dL Albumin 1.7 L (3.4-5.0) gm/dl - Exam Constitutional: Present: Alert, Oriented x3, Cooperative Extremity: Present: lower extremity edema Skin Exam: Present: other - Dressing to left foot CDI with minimal bloody drainage from medial aspect of incision following TMA. Incision remains well approximated with sutures intact. Skin is pink, warm to touch, with brisk color return. Erythema has resolved. Neurologic: Present: sensory deficit Appearance: Present: appropriate appearance Eye contact: Present: cooperative Assessment/Plan - Problems/Diagnosis (1) Diabetic foot ulcer Problem: Chronic Qualifiers: Diabetic foot ulcer location: toe Diabetes mellitus type: type 2 Laterality: left Non-pressure ulcer stage: unspecified non-pressure ulcer stage Qualified Code(s): E11.621 - Type 2 diabetes mellitus with foot ulcer; L97.529 - Non-pressure chronic ulcer of other part of left foot with unspecified severity Narrative: Excised at time of surgery (2) Cellulitis and abscess of foot Problem: Acute Narrative: Continue IV ABX. (3) Osteomyelitis Problem: Acute Qualifiers: Osteomyelitis type: unspecified type Osteomyelitis location: foot Laterality: left Qualified Code(s): M86.9 - Osteomyelitis, unspecified Narrative: Pt progressing well. Incision left foot TMA healing as expected. New DSD applied. Will need changed daily by home health care, order placed. Remain partial weightbearing on left foot in CAM boot. PT to continue at home on discharge. Still awaiting final culture results. ABX may be adjusted when available. Will plan for f/u in my office in 1 week.
[2018-05-15 18:40] VITALS: BP 126/56
--- NOTE | 2018-05-15 19:53 | ANES ---
Anesthesia Procedure Note Procedure Note: ANESTHESIA PROCEDURE NOTE Date of procedure: 05/15/2018. Time of procedure:[]. 15 00 Performed by: Cortez Pretty CRNA Line Appliance Assembler: [] None . Preprocedure diagnosis: []. Cellulitis and diabetic foot ulcer. Need for long- term antibiotics. Difficult IV access. Post procedure diagnosis: Same. Procedure:[] PICC line placement Indications: []. Need for long-term antibiotics Findings: [] Patient was placed in a supine position and patient's left antecubital fossa and surrounding tissue was prepped and draped sterilely. This access was obtained and PICC line was inserted. However resistance was met approximately 25 cm. Chest x-ray confirmed proper positioning of PICC line. PICC line was removed intact. Patient's right and cubital fossa and surrounding area was prepped and draped sterilely. Dual-lumen PICC line was inserted. Both lumens flush and aspirate easily. Chest x-ray revealed proper PICC line placement. EBL: Minimal. Fluids: N/A. Specimen: N/A. Post procedure condition: The patient tolerated the procedure well. No complications were noted. Thank you for this consultation Cortez Pretty CRNA
== END 2018-05-15 18:00 | disposition home health service (06) | DRG 463 ==
LOC: ER 14:33 → MS 17:00
PROVIDERS: ADMIT Internal Medicine; ATTEND Family Medicine
DX: Z88.0 Allergy status to penicillin; Z79.82 Long term (current) use of aspirin; Z79.4 Long term (current) use of insulin; E11.51 Type 2 diabetes mellitus with diabetic peripheral angiopathy without gangrene; I95.9 Hypotension, unspecified; E66.01 Morbid (severe) obesity due to excess calories; L03.116 Cellulitis of left lower limb; E11.65 Type 2 diabetes mellitus with hyperglycemia; E86.0 Dehydration; I50.9 Heart failure, unspecified; H91.90 Unspecified hearing loss, unspecified ear; I11.0 Hypertensive heart disease with heart failure; R79.89 Other specified abnormal findings of blood chemistry; L97.529 Non-pressure chronic ulcer of other part of left foot with unspecified severity; Z95.2 Presence of prosthetic heart valve; Z79.02 Long term (current) use of antithrombotics/antiplatelets; J18.1 Lobar pneumonia, unspecified organism; Z66 Do not resuscitate; M86.9 Osteomyelitis, unspecified; E78.00 Pure hypercholesterolemia, unspecified; R78.81 Bacteremia; E11.621 Type 2 diabetes mellitus with foot ulcer; Z96.659 Presence of unspecified artificial knee joint; Z68.38 Body mass index [BMI] 38.0-38.9, adult; I25.10 Atherosclerotic heart disease of native coronary artery without angina pectoris; E11.40 Type 2 diabetes mellitus with diabetic neuropathy, unspecified; E77.8 Other disorders of glycoprotein metabolism; Z87.891 Personal history of nicotine dependence
CPT/HCPCS: 36415; 71010; 71045; 73630; 73718; 76705; 80048; 80053; 80074; 83605; 85007; 85025; 85610; 85652; 86140; 87040; 87070; 87075; 87081; 88300; 88305; 88311; 88312; 93005; 94640; 94664; 96361; 96374; 97110; 97161; 97530; 99285

== ENCOUNTER 2018-05-20 16:58 | Observation (INO) | payer MEDICARE ==
[2018-05-20 18:40] LABS: Hematocrit 33.5 % (42.0-52.0); Hemoglobin 10.8 gm/dL (13.5-18.0); Mean Cell Volume 90.3 fl (78-100); Mean Corpuscular Hemoglobin 29.1 pg (27-31); Mean Corpuscular Hgb Conc 32.2 g/dl (32-36); Mean Platelet Volume 8.6 fl (8-11.3); Neutrophil # 11.1 K/mm3 (1.3-6.0); Neutrophil % 67.6 % (42-75.0); Platelet Count 445 K/mm3 (150-450); Red Blood Count 3.71 M/mm3 (4.7-6.0); Red Cell Distribution Width 14.8 % (11.5-14.0); White Blood Count 16.4 K/mm3 (4.0-10.5)
[2018-05-20 18:54] LABS: Albumin * 2.3 gm/dl (3.4-5.0); Anion Gap 12.4 mmol/L (6.8-13.8); BUN/Creatinine Ratio 22.1 (9.0-21.6); Bilirubin, Total 0.3 mg/dL (0.0-1.1); Ca. Corrected For Albumin 10.2 mg/dL (8.4-10.2); Calcium * 9.2 mg/dL (7.9-10.9); Carbon Dioxide 28.6 mmol/L (24-32.6); Total Protein 6.8 gm/dL (6.2-8.2)
[2018-05-20 20:00] LABS: Urine Bilirubin Negative (NEGATIVE); Urine Ketone Negative (NEGATIVE); Urine Nitrite Negative (NEGATIVE); Urine Protein Negative (NEGATIVE); Urine Specific Gravity 1.025 SP.GR. (1.005-1.030); Urine Urobilinogen Normal (NORMAL); Urine pH 5.5 pH (5.0-7.0)
[2018-05-20 20:05] LABS: Urine Appearance Clear (CLEAR); Urine Bacteria None Seen; Urine Blood 5 /ul (NEGATIVE); Urine Color Yellow; Urine RBC None Seen /hpf (0-5); Urine WBC None Seen /hpf (0-5)
[2018-05-20] MEDS ORDERED: DEXTROSE 50%-WATER 50 ML SYRG ONE (20:14)
[2018-05-20] MEDS ORDERED: DEXTROSE 50%-WATER 50 ML SYRG IV ONE (20:15)
--- NOTE | 2018-05-20 20:55 | ERNOTE ---
Abdominal HPI - Narrative Date of Service: 05/20/18 - General Chief Complaint: Abdominal Pain Time Seen by Provider: 05/20/18 17:53 Source: patient, family, past records Exam Limitations: clinical condition - Immun/Allergies/Home Medications Immunizatons: IMMUNIZATION HX Immunizations Up to Date Yes History of Influenza Vaccine Yes Hx Pneumococcal Vaccination Yes Allergies/Adverse Reactions: Allergies Penicillins Allergy (Severe, Verified 05/20/18 17:39) Anaphylaxis Hives Home Medications: HOME MEDICATIONS Aspirin 81 mg PO DAILY 11/26/14 [Last Taken 03/30/18] Cholecalciferol (Vitamin D3) [Vitamin D3] 2,000 units PO DAILY 11/26/14 [Last Taken 03/30/18] Cilostazol [Pletal] 100 mg PO BID 11/26/14 [Last Taken 03/30/18] Insulin Aspart [Novolog] 10 units SC QAM 11/26/14 [Last Taken 03/30/18] Insulin Aspart [Novolog] 40 units SC .AT LUNCH 11/26/14 [Last Taken 03/29/18] Insulin Glargine,Hum.rec.anlog [Lantus] 60 units SC HS 11/26/14 [Last Taken 03/29/18] Rosuvastatin Calcium [Crestor] 20 mg PO HS 11/26/14 [Last Taken 03/29/18] Tamsulosin HCl [Flomax] 0.4 mg PO HS 11/26/14 [Last Taken 03/29/18] Zolpidem Tartrate 10 mg PO HS 11/26/14 [Last Taken 03/29/18] Clopidogrel Bisulfate [Plavix] 75 mg PO DAILY 03/30/18 [Last Taken 03/30/18] Furosemide 20 mg PO DAILY 03/30/18 [Last Taken 03/30/18] Metoprolol Rivas/Hydrochlorothiaz [Metoprolol ER-Hctz 25-12.5 mg] 25 mg PO DAILY 03/30/18 [Last Taken 03/30/18] Docusate Sodium [Colace] 100 mg PO BID cap 04/01/18 [Last Taken Unknown] 0.9 % Sodium Chloride [Normal Saline Flush] 10 ml IJ BID #10 disp.syrin 05/15/18 [Last Taken Unknown] Meropenem [Merrem] 1 gm IV Q12H 10 Days #20 vial 05/15/18 [Last Taken Unknown] oxyCODONE HCL/ACETAMINOPHEN [Percocet 5-325 mg Tablet] 1 each PO Q8H PRN #30 tablet 05/15/18 [Last Taken Unknown] - History of Present Illness Narrative: 88 year old male brought to the ED by his son and his for abdominal pain, loose stools and urinary frequency that began 4 days ago. He was recently admitted with pneumonia and a gangrenous diabetic foot ulcer. He underwent a transmetatarsal amputation on 05/11 and was then discharged on 05/15. He has been getting IV Meropenum twice a day through a PICC line. Prior Abdominal Problems: Present: none Prior Treatment: Present: recently seen, recently hospitalized, currently on antibiotics Review of Systems - Review of Systems Constitutional: Present: decreased activity level. Absent: fever EYE: Present: no symptoms reported ENT: Absent: nose congestion, sore throat Respiratory: Absent: shortness of breath, cough Cardiology: Absent: chest pain, syncope Gastrointestinal/Abdominal: Present: diarrhea, abdominal pain, eating less. Absent: nausea, vomiting, drinking less Genitourinary: Present: frequency, decreased urinary output. Absent: dysuria Musculoskeletal: Present: no symptoms reported Skin: Absent: lesions, lumps, change in color Neurological: Absent: headache, dizziness/light-headedness Endocrine: Present: no symptoms reported Hematologic/Lymphatic: Absent: easy bruising, easy bleeding Psych: Present: no symptoms reported Medical History (Last Reviewed 05/20/18 @ 21:42 by Daniela Trent NP) Bleeding hemorrhoid CAD (coronary artery disease) CHF (congestive heart failure) Diabetes Diabetic neuropathy HTN (hypertension) High cholesterol PVD (peripheral vascular disease) Surgical History: Surgical History (Last Reviewed 05/20/18 @ 21:42 by Daniela Trent NP) 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 Previous back surgery Total knee replacement status Family History: Family History (Last Reviewed 05/20/18 @ 21:42 by Daniela Trent NP) Other No pertinent family history Social History: Preferred Language Bengali Smoking Status Former smoker Abuse History No History of abuse Psych History No pertinent hx Alcohol Use none Drug Use none (Last Updated 04/09/18 @ 15:27 by Skylar Traylor MD) No Social History Section defined Physical Exam - Physical Exam General Appearance: Present: wd/wn, alert, mild distress Head Exam: Present: normal inspection Neck: Present: normal inspection, nontender, supple Respiratory: Present: no respiratory distress, normal breath sounds, no accessory muscle use, lungs clear Cardiovascular/Chest: Present: regular rate, rhythm, no murmur Gastrointestinal/Abdominal: Present: normal bowel sounds, nontender, nondistended, soft Extremity Exam: Present: normal except - - left foot incision with sutures in place, mildly erythematous, scabbed areas on dorsum of foot Neurological Exam: Present: other - Dozes when not disturbed, answers questions appropriately Skin Exam: Present: warm/dry, pallor Progress - Results and Orders Patient's Lab Results:: I have reviewed the patient's lab results. - Vital Signs Patient's Vital Signs:: I have reviewed the patient's vital signs. Vital Signs: Vital Signs 05/20/18 17:32 Temperature 36.0 C Pulse Rate 60 Respiratory Rate 12 Blood Pressure 138/65 O2 Sat by Pulse Oximetry 97 - X-Ray X-Ray #1 X-Ray: abdomen Interpretation: Interp. by me X-ray Comments: Nonobstructive bowel gas pattern without acute findings X-Ray #2 X-Ray: foot - left Interpretation: Interp. by me - post-surgical changes without acute findings - Progress/Reassessment Chief Complaint: Abdominal Pain Progress:: Unchanged Plan - Plan Plan: Dr. Gerber was contacted regarding the patient's left foot. The surgical wound appears to be healing well and it seems as though the redness and scabbed areas are unchanged. The patient has a WBC of 16,400 (was 10,500 on 05/15) despite being on IV Meropenum at home. His is not febrile and has a normal lactate. The cause of the elevated WBC is unclear. His UA does not indicate any infection despite having urinary frequency for the past few days. He has also been having intermittent loose stools and poorly localized abdominal pain. He has been incontinent of both urine and stool which is not normal for him. Dr. Garland was contacted and the patient will be admitted to observation status. Departure Clinical Impression: Failure to thrive in adult Leukocytosis Qualifiers: Leukocytosis type: unspecified Qualified Code(s): D72.829 - Elevated white blood cell count, unspecified Abdominal pain Qualifiers: Abdominal location: generalized Qualified Code(s): R10.84 - Generalized abdominal pain - Departure Disposition: Still a patient Condition: Fair Referrals: Skylar Traylor MD [Primary Care Provider] -
[2018-05-20] MEDS ORDERED: FLUCONAZOLE 100 MG TABLET PO ONE (22:08)
[2018-05-20] MEDS ORDERED: NORMAL SALINE 1,000 ML IV ONE (22:08)
[2018-05-21] MEDS ORDERED: NORMAL SALINE 1,000 ML IV ONE (07:32)
--- NOTE | 2018-05-21 10:38 | CONS ---
[facility] - General Date of Service: 05/21/18 Narrative: Mr. rBown is a known patient to my practice. He recently underwent a transmetatarsal amputation of his left foot secondary to osteomyelitis. He has been recovering at home receiving IV ABX. Dressing changes are being done daily by his , who states she was educated by the home health nurse on how to change this dressing and they have not evaluated the foot since that time. He was brought to the ED last evening with c/o loose stools, frequent urination, and abdominal pains. Denies any pain in the foot. He was admitted for observation. Stool culture has been obtained to assess for C. diff infection. He was to follow up for a post-operative visit in my office, however due to admission, I was consulted for care of his surgical foot. States that he is feeling much better today and is sitting up in bedside chair upon arrival to his room. Is hopeful he will get to go home today. Source: patient, family Exam Limitations: no limitations - History of Present Illness Allergies/Adverse Reactions: Allergies Penicillins Allergy (Severe, Verified 05/20/18 17:39) Anaphylaxis Hives Home Medications: Home Medications Medication Instructions Recorded Last Taken Aspirin 81 mg PO DAILY 11/26/14 03/30/18 Cholecalciferol (Vitamin D3) 2,000 units PO DAILY 11/26/14 03/30/18 [Vitamin D3] Cilostazol [Pletal] 100 mg PO BID 11/26/14 03/30/18 Insulin Aspart [Novolog] 10 units SC QAM 11/26/14 03/30/18 Insulin Aspart [Novolog] 40 units SC .AT LUNCH 11/26/14 03/29/18 Insulin Glargine,Hum.rec.anlog 60 units SC HS 11/26/14 03/29/18 [Lantus] Rosuvastatin Calcium [Crestor] 20 mg PO HS 11/26/14 03/29/18 Tamsulosin HCl [Flomax] 0.4 mg PO HS 11/26/14 03/29/18 Zolpidem Tartrate 10 mg PO HS 11/26/14 03/29/18 Clopidogrel Bisulfate [Plavix] 75 mg PO DAILY 03/30/18 03/30/18 Furosemide 20 mg PO DAILY 03/30/18 03/30/18 Metoprolol Rivas/Hydrochlorothiaz 25 mg PO DAILY 03/30/18 03/30/18 [Metoprolol ER-Hctz 25-12.5 mg] Docusate Sodium [Colace] 100 mg PO BID cap 04/01/18 Unknown 0.9 % Sodium Chloride [Normal 10 ml IJ BID #10 disp.syrin 05/15/18 Unknown Saline Flush] Meropenem [Merrem] 1 gm IV Q12H 10 Days #20 vial 05/15/18 Unknown oxyCODONE HCL/ACETAMINOPHEN 1 each PO Q8H PRN #30 tablet 05/15/18 Unknown [Percocet 5-325 mg Tablet] Procedures Closed [transurethral] biopsy of bladder (12/10/14) Excision of Left Foot Subcutaneous Tissue and Fascia, Percutaneous Approach (03/30/18) Introduction of Serum, Toxoid and Vaccine into Muscle, Percutaneous Approach (03/30/18) Other cystoscopy (11/26/14) Retrograde pyelogram (12/10/14) Medications - Medications Current Medications: Current Medications Sodium Chloride (Sodium Chloride 0.9%) 1,000 mls @ 125 mls/hr IV .Q8H ONE Stop: 05/21/18 15:31 Last Admin: 05/21/18 07:42 Dose: 125 mls/hr Review of Systems - Review of Systems Generalized/Overall Review: Absent: Fever Respiratory: Absent: Cough, Shortness of Breath Cardiac: Present: Edema Abdominal: Present: Abdominal Pain, Diarrhea Genitourinary: Present: Frequency Neurological: Present: Numbness Skin: Present: Other - incision left foot, scab dorsal left foot Physical Examination - Exam Vital Signs: Vital Signs - Last Taken Temp 36.9 C 05/21/18 08:40 Pulse 57 L 05/21/18 08:40 Resp 20 05/21/18 08:40 BP 124/53 05/21/18 08:40 Pulse Ox 96 05/21/18 08:40 O2 Oxygen Delivery Method Room Air Constitutional: Present: Alert, Oriented x3, Cooperative Peripheral Pulses: dorsalis-pedis (L): 0 - PT pulse non-palpable Extremity: Present: lower extremity edema Skin Exam: Present: other - Incision to distal left foot well approximated with sutures intact. There is a darkened area of skin to the plantar medial aspect of the foot that is easily peeled away with surrounding dry skin leaving intact underlying skin. There is black, dry, stable eschar tissue to the dorsum of the foot. No active drainage. There is some slight localized redness, no warmth to touch. Skin blanches on compression with brisk color return. No swelling present. Neurologic: Present: sensory deficit Appearance: Present: appropriate appearance Eye contact: Present: cooperative - Results and Findings: Lab/Microbiology results last 24 hrs: Abnormal/Pending Laboratory Last 24 HRS 05/20/18 05/20/18 05/20/18 19:53 18:20 18:20 WBC 16.4 H RBC 3.71 L Hgb 10.8 L Hct 33.5 L RDW 14.8 H Immature Gran % (Auto) 1.70 H Immature Gran # (Auto) 0.28 H Lymphocytes % 19.7 L Neutrophils # 11.1 H Monocytes # 1.5 H BUN 31 H Est GFR (Non-Af Amer) 51 L BUN/Creatinine Ratio 22.1 H Random Glucose 53 L AST 73 H ALT 99 H Alkaline Phosphatase 243 H Albumin 2.3 L Urine Blood 5 H - Assessments/Findings (1) Status post transmetatarsal amputation of left foot Diagnosis(s): Surgical site appears to be healing well, sutures remain intact. There is some scabbing to the dorsum of the foot that is dry and stable. Surrounding skin appears to be slightly inflamed, but does not appear infected. New DSD is applied to his left foot. Will continue with daily dressing changes with dry gauze, kerlix/ramon, and ROX bandage at this time. Ok for to change dressings, however home health worker should be evaluating the foot at least once per week to check for any acute changes/SOI. Continue in CAM boot for all weightbearing activities. Will plan for f/u in wound center for a dressing change and foot inspection once weekly for the next 2 weeks as I will be out of office for the holidays. Educated on SOI and he is to seek medical attention immediately should any develop. Will plan f/u in my office in 3 weeks. Problem: Acute
[2018-05-21] MEDS ORDERED: SACCHAROMYCES BOULARDII 250 MG CAPSULE PO SCH (11:15)
--- NOTE | 2018-05-21 12:17 | HP ---
Chief Complaint - Chief Complaint Date of Service: 05/21/18 Time of Service: 11:58 History of Present Illness: 88-year-old male status post left transmetatarsal amputation, type 2 diabetes, hypertension, BPH, peripheral vascular disease, aortic valve replacem ent, was seen in the ER at [facility] due to diffuse abdominal pain accompanied by loose stools and urinary frequency of 2 days duration. Patient was recently hospitalized at our institution and was discharged last week with home health aide and a PICC line by which he was to receive 10 days of meropenem IV. Before his hospitalization there were no adverse events reported and patient was tolerating the treatment well. Routine dressing changes were being carried out by nursing staff and patient was scheduled to be seen in office in a few days. Patient is known to suffer from chronic constipation and admits to administering Colace to him as well as possibly other laxatives, so this may be the cause of the diarrhea. In hospital C. difficile is negative and there has been no recurrence of abdominal pain, however patient did have an episode of loose stools this morning. Patient was evaluated by the dietitian who recommended to Florastor to reestablish intesti nal amrita. Therefore the medication was added to his treatment and based on the clinical picture and the patient's favorable response to in hospital treatment will consider discharging home with instructions to continue IV antibiotics for his osteomyelitis. Medical History (Last Updated 05/20/18 @ 23:50 by Roberta Butterfield RN) amputation toes left foot Bleeding hemorrhoid CAD (coronary artery disease) CHF (congestive heart failure) Diabetes Diabetic neuropathy HTN (hypertension) High cholesterol PVD (peripheral vascular disease) Surgical History: Surgical History (Last Reviewed 05/20/18 @ 23:52 by Roberta Butterfield RN) 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 Previous back surgery Total knee replacement status Family History: Family History (Last Updated 05/20/18 @ 23:52 by Roberta Butterfield RN) Father Colon cancer Mother Other No pertinent family history Social History: Patient Lives/Resources Home Utilized Preferred Language Korean Smoking Status Former smoker Have you smoked in the past 12 No months Do you dip or chew tobacco No Abuse History No History of abuse Psych History No pertinent hx Alcohol Use none Drug Use none (Last Updated 04/09/18 @ 15:27 by Skylar Traylor MD) No Social History Section defined Peds Patient Hx - Developmental: No Pertinent Hx Peds Patient Hx - Medical: No Pertinent Hx Peds Patient Hx - Cardiac/Respiratory: No Pertinent Hx Peds Patient Hx - Surgical: No Surgical History Patient History - Cancer: No Hx of Cancer Review Of Systems (GEN) - Review of Systems Generalized/Overall Review: Absent: Chills, Fever EENTM: Present: No Symptoms Reported Respiratory: Present: No Symptoms Reported Cardiac: Present: No Symptoms Reported Abdominal: Present: Abdominal Pain, Other - Loose stools Genitourinary: Present: Frequency Musculoskeletal: Present: No Symptoms Reported Neurological: Present: No Symptoms Reported Skin: Present: No Symptoms Reported Endocrine: Present: No Symptoms Reported Immunizations: IMMUNIZATION HX Immunizations Up to Date Yes History of Influenza Vaccine Yes Hx Pneumococcal Vaccination Yes Allergies/Adverse Reactions: Allergies Allergy/AdvReac Type Severity Reaction Status Date / Time Penicillins Allergy Severe Anaphylaxis Verified 05/20/18 17:39 Home Medications: HOME MEDICATIONS Aspirin 81 mg PO DAILY 11/26/14 [Last Taken 03/30/18] Cholecalciferol (Vitamin D3) [Vitamin D3] 2,000 units PO DAILY 11/26/14 [Last Taken 03/30/18] Cilostazol [Pletal] 100 mg PO BID 11/26/14 [Last Taken 03/30/18] Insulin Aspart [Novolog] 10 units SC QAM 11/26/14 [Last Taken 03/30/18] Insulin Aspart [Novolog] 40 units SC .AT LUNCH 11/26/14 [Last Taken 03/29/18] Insulin Glargine,Hum.rec.anlog [Lantus] 60 units SC HS 11/26/14 [Last Taken 03/29/18] Rosuvastatin Calcium [Crestor] 20 mg PO HS 11/26/14 [Last Taken 03/29/18] Tamsulosin HCl [Flomax] 0.4 mg PO HS 11/26/14 [Last Taken 03/29/18] Zolpidem Tartrate 10 mg PO HS 11/26/14 [Last Taken 03/29/18] Clopidogrel Bisulfate [Plavix] 75 mg PO DAILY 03/30/18 [Last Taken 03/30/18] Furosemide 20 mg PO DAILY 03/30/18 [Last Taken 03/30/18] Metoprolol Rivas/Hydrochlorothiaz [Metoprolol ER-Hctz -.5 mg] 25 mg PO DAILY 03/30/18 [Last Taken 03/30/18] Docusate Sodium [Colace] 100 mg PO BID cap 04/01/18 [Last Taken Unknown] 0.9 % Sodium Chloride [Normal Saline Flush] 10 ml IJ BID #10 disp.syrin 05/15/18 [Last Taken Unknown] Meropenem [Merrem] 1 gm IV Q12H 10 Days #20 vial 05/15/18 [Last Taken Unknown] oxyCODONE HCL/ACETAMINOPHEN [Percocet 5-325 mg Tablet] 1 each PO Q8H PRN #30 tablet 05/15/18 [Last Taken Unknown] Exam - Exam Vital Signs: Vital Signs - Last Taken Temp 36.9 C 05/21/18 08:40 Pulse 57 L 05/21/18 08:40 Resp 20 05/21/18 08:40 BP 124/53 05/21/18 08:40 Pulse Ox 96 05/21/18 08:40 Constitutional: Present: Alert, Oriented x3, Cooperative, Elderly, Obese ENT Exam: Present: normal ENT inspection, pharynx normal, TMs normal, hard of hearing Eye Exam: bilateral eye: normal inspection, PERRL, EOMI Neck: Present: non-tender, full range of motion, supple, normal inspection, trachea midline Back Exam: Present: normal inspection, no CVA tenderness, no vertebral tenderness Breasts: Present: Exam deferred Respiratory: Present: chest non-tender, lungs clear, normal breath sounds, no re spiratory distress Cardiovascular/Chest: Present: normal peripheral pulses, regular rate, rhythm, no chest tenderness, no edema, no gallop, no JVD, no murmur Peripheral Pulses: carotid (R): 3+, carotid (L): 3+, femoral (R): 2+, femoral (L): 2+, dorsalis-pedis (R): 1+, dorsalis-pedis (L): 1+ Abdomen: Present: Normal bowel sounds, soft, nontender, nondistended, no rebound tenderness, no hepatospenomegaly, no masses, obese /Rectal: Present: Exam deferred Extremity: Present: normal range of motion, non-tender, normal inspection, no pedal edema, no calf tenderness, normal capillary refill, pelvis stable Skin Exam: Present: normal color, warm/dry, no cyanosis Lymphatic: Present: no adenopathy Neurologic: Present: caterers helper II-XII nml as tested, normal cerebellar test, no motor/sensory deficits, alert, normal mood/affect, oriented x 3 Appearance: Present: appropriate appearance, appropriate insight, neat, no memory impairment Eye contact: Present: cooperative, good eye contact, normal speech Thoughts: Present: normal thought pattern, no apparent hallucination Diagnostic Studies: Abnormal Lab Results 05/20/18 05/20/18 05/20/18 Range/Units 18:20 18:20 19:53 WBC 16.4 H (4.0-10.5) K/mm3 RBC 3.71 L (4.7-6.0) M/mm3 Hgb 10.8 L (13.5-18.0) gm/dL Hct 33.5 L (42.0-52.0) % RDW 14.8 H (11.5-14.0) % Immature Gran % (Auto) 1.70 H (0.001-0.429) % Immature Gran # (Auto) 0.28 H (0.000-0.0310) K/mm3 Lymphocytes % 19.7 L (20-51) % Neutrophils # 11.1 H (1.3-6.0) K/mm3 Monocytes # 1.5 H (0.0-1.0) k/mm3 BUN 31 H (6-23) mg/dL Est GFR (Non-Af Amer) 51 L (60-130) mL/min BUN/Creatinine Ratio 22.1 H (9.0-21.6) Random Glucose 53 L (70-110) mg/dL AST 73 H (0-48) U/L ALT 99 H (19-67) U/L Alkaline Phosphatase 243 H (50-170) U/L Albumin 2.3 L (3.4-5.0) gm/dl Urine Blood 5 H (NEGATIVE) /ul Laboratory Results WBC 16.4 K/mm3 (4.0-10.5) H 05/20/18 18:20 RBC 3.71 M/mm3 (4.7-6.0) L 05/20/18 18:20 Hgb 10.8 gm/dL (13.5-18.0) L 05/20/18 18:20 Hct 33.5 % (42.0-52.0) L 05/20/18 18:20 MCV 90.3 fl (78-100) 05/20/18 18:20 MCH 29.1 pg (27-31) 05/20/18 18:20 MCHC 32.2 g/dl (32-36) 05/20/18 18:20 RDW 14.8 % (11.5-14.0) H 05/20/18 18:20 Plt Count 445 K/mm3 (150-450) 05/20/18 18:20 MPV 8.6 fl (8-11.3) 05/20/18 18:20 Immature Gran % (Auto) 1.70 % (0.001-0.429) H 05/20/18 18:20 Immature Gran # (Auto) 0.28 K/mm3 (0.000-0.0310) H 05/20/18 18:20 Neutrophils % 67.6 % (42-75.0) 05/20/18 18:20 Lymphocytes % 19.7 % (20-51) L 05/20/18 18:20 Monocytes % 8.9 % (0.0-9) 05/20/18 18:20 Eosinophils % 1.6 % (0.0-3.0) 05/20/18 18:20 Basophils % 0.5 % (0.0-1.0) 05/20/18 18:20 Nucleated RBC % 0.0 k/mm3 (0-1) 05/20/18 18:20 Neutrophils # 11.1 K/mm3 (1.3-6.0) H 05/20/18 18:20 Lymphocytes # 3.23 k/mm3 (1.5-3.5) 05/20/18 18:20 Monocytes # 1.5 k/mm3 (0.0-1.0) H 05/20/18 18:20 Eosinophils # 0.3 k/mm3 (0.0-0.7) 05/20/18 18:20 Absolute Basophils 0.1 k/mm3 (0.0-0.1) 05/20/18 18:20 Sodium 135 mmol/L (132-142) 05/20/18 18:20 Plasma Sodium 134 mmol/L (130-142) 05/20/18 18:20 Potassium 4.0 mmol/L (3.4-4.6) 05/20/18 18:20 Chloride 98 mmol/L (97-106) 05/20/18 18:20 Carbon Dioxide 28.6 mmol/L (24-32.6) 05/20/18 18:20 Anion Gap 12.4 mmol/L (6.8-13.8) 05/20/18 18:20 BUN 31 mg/dL (6-23) H 05/20/18 18:20 Creatinine 1.40 mg/dL (0.4-1.4) 05/20/18 18:20 Est GFR (Non-Af Amer) 51 mL/min (60-130) L 05/20/18 18:20 BUN/Creatinine Ratio 22.1 (9.0-21.6) H 05/20/18 18:20 Random Glucose 53 mg/dL (70-110) L 05/20/18 18:20 Lactic Acid, Venous 1.2 mmol/L (0.4-2.0) 05/20/18 18:20 Calcium 9.2 mg/dL (7.9-10.9) 05/20/18 18:20 Calcium Adj for Albumin 10.2 mg/dL (8.4-10.2) 05/20/18 18:20 Total Bilirubin 0.3 mg/dL (0.0-1.1) 05/20/18 18:20 AST 73 U/L (0-48) H 05/20/18 18:20 ALT 99 U/L (19-67) H 05/20/18 18:20 Alkaline Phosphatase 243 U/L (50-170) H 05/20/18 18:20 Total Protein 6.8 gm/dL (6.2-8.2) 05/20/18 18:20 Albumin 2.3 gm/dl (3.4-5.0) L 05/20/18 18:20 Urine Color Yellow 05/20/18 19:53 Urine Appearance Clear (CLEAR) 05/20/18 19:53 Urine pH 5.5 pH (5.0-7.0) 05/20/18 19:53 Ur Specific [place] 1.025 SP.GR. (1.005-1.030) 05/20/18 19:53 Urine Protein Negative mg/dL (NEGATIVE) 05/20/18 19:53 Urine Glucose (UA) Negative mg/dL (NEGATIVE) 05/20/18 19:53 Urine Ketones Negative mg/dL (NEGATIVE) 05/20/18 19:53 Urine Blood 5 /ul (NEGATIVE) H 18 19:53 Urine Nitrate Negative (NEGATIVE) 05/20/18 19:53 Urine Bilirubin Negative mg/dl (NEGATIVE) 05/20/18 19:53 Urine Urobilinogen Normal EU/dl (NORMAL) 05/20/18 19:53 Ur Leukocyte Esterase Negative /ul (NEGATIVE) 05/20/18 19:53 Urine RBC None seen /hpf (0-5) 05/20/18 19:53 Urine WBC None seen /hpf (0-5) 05/20/18 19:53 Ur Epithelial Cells Trace /hpf (0-5) 05/20/18 19:53 Urine Bacteria None seen (NONE) 05/20/18 19:53 Urine Culture Comments No culture indicated 05/20/18 19:53 Stl C.difficile Tox A&B Negative (Negative) 05/21/18 10:21 Assessment/Plan - Narrative Narrative: After evaluation of patient and the medical record decision to admit to observation was taken for treatment of mild dehydration, mild generalized weakness, and loose stools. C. difficile culture and stool cultures were ordered to rule out Clostridium difficile infection secondary to antibiotics. While waiting for culture results to we will treat patient with IV hydration and medications to restore intestinal amrita. - Assessment/Plan (1) Loose stools Problem: Acute (2) Uncontrolled diabetes mellitus Problem: Acute (3) Leukocytosis Problem: Acute (4) Antibiotics received prior to arrival Problem: Acute (5) Abdominal pain Problem: Acute Qualifiers: Abdominal location: lower abdomen, unspecified Qualified Code(s): R10.30 - Lower abdominal pain, unspecified (6) Moderate dehydration Problem: Acute
--- NOTE | 2018-05-21 12:37 | DS ---
(1) Loose stools Problem: Acute (2) Uncontrolled diabetes mellitus Problem: Chronic Qualifiers: Diabetes mellitus type: type 2 (3) Leukocytosis Problem: Acute Qualifiers: Leukocytosis type: other Qualified Code(s): D72.828 - Other elevated white blood cell count (4) Antibiotics received prior to arrival Problem: Acute (5) Abdominal pain Problem: Resolved Qualifiers: Abdominal location: lower abdomen, unspecified Qualified Code(s): R10.30 - Lower abdominal pain, unspecified (6) Moderate dehydration Problem: Resolved Description of Stay: 88-year-old male was evaluated at bedside and was found to be afebrile and in no acute distress, patient had one episode of loose stools this morning but denies recurrence of abdominal pain or distention. C. difficile culture result was negative therefore patient will be discharged home with instructions to continue original IV antibiotic regimen for his osteomyelitis. Patient will continue with regular dressing changes by home health nurses and resume all routine meds. Patient's was instructed to hold all laxatives such as Colace suppositories or milk of magnesia, since it is suspected that she administered this for his chronic constipation. Patient is also to continue taking Flomax for BPH and symptoms of urinary retention. was also instructed to get a urinal so that patient can use while he is in bed, that way risk of fall will be reduced. Procedures Performed: none Results and Findings: Lab Pending Results 05/20/18 18:20: WBC 16.4 H, RBC 3.71 L, Hgb 10.8 L, Hct 33.5 L, MCV 90.3, MCH 29.1, MCHC 32.2, RDW 14.8 H, Plt Count 445, MPV 8.6, Immature Gran % (Auto) 1.70 H, Immature Gran # (Auto) 0.28 H, Neutrophils % 67.6, Lymphocytes % 19.7 L, Monocytes % 8.9, Eosinophils % 1.6, Basophils % 0.5, Nucleated RBC % 0.0, Neutrophils # 11.1 H, Lymphocytes # 3.23, Monocytes # 1.5 H, Eosinophils # 0.3, Absolute Basophils 0.1 05/20/18 18:20: Sodium 135, Plasma Sodium 134, Potassium 4.0, Chloride 98, Carbon Dioxide 28.6, Anion Gap 12.4, BUN 31 H, Creatinine 1.40, Est GFR (Non-Af Amer) 51 L, BUN/Creatinine Ratio 22.1 H, Random Glucose 53 L, Calcium 9.2, Calcium Adj for Albumin 10.2, Total Bilirubin 0.3, AST 73 H, ALT 99 H, Alkaline Phosphatase 243 H, Total Protein 6.8, Albumin 2.3 L 05/20/18 18:20: Lactic Acid, Venous 1.2 05/20/18 19:53: Urine Color Yellow, Urine Appearance Clear, Urine pH 5.5, Ur Specific [place] 1.025, Urine Protein Negative, Urine Glucose (UA) Negative, Urine Ketones Negative, Urine Blood 5 H, Urine Nitrate Negative, Urine Bilirubin Negative, Urine Urobilinogen Normal, Ur Leukocyte Esterase Negative, Urine RBC None seen, Urine WBC None seen, Ur Epithelial Cells Trace, Urine Bacteria None seen, Urine Culture Comments No culture indicated 05/21/18 10:21: Stl C.difficile Tox A&B Negative Discharge Location: Home Disposition: Home Health Service Home Health Agency: [facility] Home Health Condition: Good Face to Face Encounter completed per [facility] Guidelines: No Discharge Activity: Activity as tolerated, Partial-Weight bearing Discharge Diet: Consistent carbs Referrals: Skylar Traylor MD [Primary Care Provider] - Additional Patient Instructions (free text): -Please make TCM appointment unless correction discharge. Thank you! Geri @ [phone]. TCM appointment already scheduled for 05/25/18 w/ Dr. Traylor from previous admission. Resume services with [facility]. Please call report and fax orders upon discharge. Prescriptions (Any new or edited meds): Saccharomyces Boulardii [Florastor] 250 mg PO BID 10 Days #20 capsule Complete Home Medications List: Complete Home Medication List: Aspirin 81 mg PO DAILY 11/26/14 Cholecalciferol (Vitamin D3) [Vitamin D3] 2,000 units PO DAILY 11/26/14 Cilostazol [Pletal] 100 mg PO BID 11/26/14 Insulin Aspart [Novolog] 10 units SC QAM 11/26/14 Insulin Aspart [Novolog] 40 units SC .AT LUNCH 11/26/14 Insulin Glargine,Hum.rec.anlog [Lantus] 60 units SC HS 11/26/14 Rosuvastatin Calcium [Crestor] 20 mg PO HS 11/26/14 Tamsulosin HCl [Flomax] 0.4 mg PO HS 11/26/14 Zolpidem Tartrate 10 mg PO HS 11/26/14 Clopidogrel Bisulfate [Plavix] 75 mg PO DAILY 03/30/18 Furosemide 20 mg PO DAILY 03/30/18 Metoprolol Rivas/Hydrochlorothiaz [Metoprolol ER-Hctz 25-12.5 mg] 25 mg PO DAILY 03/30/18 Docusate Sodium [Colace] 100 mg PO BID cap 04/01/18 0.9 % Sodium Chloride [Normal Saline Flush] 10 ml IJ BID #10 disp.syrin 05/15/18 Meropenem [Merrem] 1 gm IV Q12H 10 Days #20 vial 05/15/18 oxyCODONE HCL/ACETAMINOPHEN [Percocet 5-325 mg Tablet] 1 each PO Q8H PRN #30 tablet 05/15/18 Saccharomyces Boulardii [Florastor] 250 mg PO BID 10 Days #20 capsule 05/21/18
[2018-05-21 14:53] VITALS: BP 128/62
== END 2018-05-21 14:56 | disposition home health service (06) ==
LOC: MS 16:58 → ER 16:58 → MS 22:52
PROVIDERS: ADMIT Family Medicine; ATTEND Family Medicine
DX: E86.0 Dehydration; R10.30 Lower abdominal pain, unspecified; D72.829 Elevated white blood cell count, unspecified; E11.9 Type 2 diabetes mellitus without complications
CPT/HCPCS: 36415; 73630; 74019; 74020; 80053; 81001; 83605; 85025; 87040; 87045; 87046; 87081; 87493; 96360; 96361; 96374; 99285; G0378